=== PATIENT | male | born 1975 | race African-American/Black ===

== ENCOUNTER 2017-05-27 23:08 | Emergency (ER) | payer OTHER ==
--- NOTE | 2017-05-27 23:40 | PDOC ---
History of Present Illness - General History Source: Patient Exam Limitations: No Limitations - History of Present Illness Initial Comments: 05/27/17 23:52 The patient is a 41 year old male with history of hypertension, DM, and alcohol dependance, last detox was approximately 7 years ago, who presents to the ED requesting inpatient alcohol detox. The patient reports he had been in an outpatient detox program but failed treatment. He reports he drank a twelve pack of beer today. Last alcohol consumption was reportedly 3 hours prior to evaluation. The patient denies shaking, seizure activity, nausea, or vomiting. He denies fever or chills. He denies any physical complaint. He states his drinking has been getting worse over the past few weeks secondary to some issues at home. <Jolynn Walker - Last Filed: 05/27/17 23:52> <Adrienne Doshi - Last Filed: 05/28/17 00:27> - General Stated Complaint: DETOX Time Seen by Provider: 05/27/17 23:30 Past History <Jolynn Walker - Last Filed: 05/27/17 23:52> - Past Medical History HTN: Yes - Suicide/Smoking/Psychosocial Hx Smoking History: Former smoker Have you smoked in the past 12 months: No If you are a former smoker, when did you quit?: 5 Hx Alcohol Use: No (Previously) Drug/Substance Use Hx: No Substance Use Type: None Hx Substance Use Treatment: No <Adrienne Doshi - Last Filed: 05/28/17 00:27> - Past Medical History Allergies/Adverse Reactions: Allergies Allergy/AdvReac Type Severity Reaction Status Date / Time morphine Allergy Verified 10/15/13 01:06 KELLY Inhibitors AdvReac Verified 10/14/13 20:11 Home Medications: Ambulatory Orders Amlodipine Besylate [Norvasc -] 5 mg PO DAILY 10/15/13 Aspirin [ASA -] 81 mg PO DAILY 10/15/13 Atorvastatin Ca [Lipitor -] 40 mg PO HS 10/15/13 Losartan Potassium [Cozaar] 100 mg PO DAILY 10/15/13 Multivitamin [Multivitamins] 1 each PO DAILY 10/15/13 Omeprazole [Prilosec (RX)] 40 mg PO BID 10/15/13 Paroxetine HCl [Paxil -] 20 mg PO DAILY 10/15/13 Review of Systems - Review of Systems Able to Perform ROS?: Yes Comments:: 05/28/17 00:09 GENERAL/CONSTITUTIONAL: No fever or chills. No weakness. HEAD, EYES, EARS, NOSE AND THROAT: No change in vision. No ear pain or discharge. No sore throat. GASTROINTESTINAL: No nausea, vomiting, diarrhea or constipation. GENITOURINARY: No dysuria, frequency, or change in urination. CARDIOVASCULAR: No chest pain or shortness of breath. RESPIRATORY: No cough, wheezing, or hemoptysis. MUSCULOSKELETAL: No joint or muscle swelling or pain. No neck or back pain. SKIN: No rash NEUROLOGIC: No headache, vertigo, loss of consciousness, or change in strength/ sensation. ENDOCRINE: No increased thirst. No abnormal weight change. HEMATOLOGIC/LYMPHATIC: No anemia, easy bleeding, or history of blood clots. ALLERGIC/IMMUNOLOGIC: No hives or skin allergy. <Jolynn Walker - Last Filed: 05/27/17 23:52> *Physical Exam - Physical Exam Comments: 05/28/17 00:09 Constitutional: Awake, alert, oriented. No acute distress. Smells of EtOH Head: Normocephalic. Atraumatic Eyes: PERRL. EOMI. Conjunctivae are not pale. ENT: Mucous membranes are moist and intact. Posterior pharynx without exudates or erythema. Uvula midline. Neck: Supple. Full ROM. No lymphadenopathy. Cardiovascular: Regular rate. Regular rhythm. S1, S2 regular. Distal pulses are 2+ and symmetric. Pulmonary/Chest: No evidence of respiratory distress. Clear to auscultation bilaterally No wheezing, rales or rhonchi. Abdominal: Soft and non-distended. There is no tenderness. No rebound, guarding or rigidity. No organomegaly. No palpable masses. Good bowel sounds. Back: No CVA tenderness. Musculoskeletal: No edema. No cyanosis. No clubbing. Full range of motion in all extremities. Nocalf tenderness. Radial/pedal pulses are intact and 2+ bilaterally Skin: Skin is warm and dry. No petechiae. No purpura. Neurological: Alert and oriented to person, place, and time. Cranial nerves II -XII are grossly intact. Normal speech. Strength is grossly symmetric. No sensory deficits. Psychiatric: Good eye contact. Normal interaction, affect and behavior. <Jolynn Walker - Last Filed: 05/27/17 23:52> Medical Decision Making - Medical Decision Making 05/28/17 00:25 a/p: 41yo male requesting detox from etoh -failed outpt program for alcohol -drinking etoh 12 pack a day last drink 3 hours ago hx of detox in past -hx of DT in past, no hx of seizures or requiring hospitalization -call placed to detox, no beds available at this time, will check labs and give banana bag -will monitor for tremors and withdrawal symptoms smell of etoh on the breath <Adrienne Doshi - Last Filed: 05/28/17 00:27> *DC/Admit/Observation/Transfer - Attestations Scribe Attestion: 05/28/17 00:14 Documentation prepared by Jolynn Walker, acting as medical review coordinator for Adrienne Doshi DO. <Jolynn Walker - Last Filed: 05/27/17 23:52>
[2017-05-27] MEDS ORDERED: FOLIC ACID INJECTION - 1 MG, THIAMINE HCL 100 MG, MULTIVIT INJECTION ADULT 10 ML in SOD... IVPB ONE (23:52)
[2017-05-28 01:24] LABS: BASOPHIL 1.4 % (0-2.0); EOSINOPHIL 0.6 % (0-4.5); MCH 29.8 pg (25.7-33.7); MEAN CELL VOLUME 87.9 fl (80-96); MEAN PLT VOLUME 7.7 fl (7.5-11.1); NEUTROPHILS 63.4 % (42.8-82.8); PLATELET COUNT 286 K/MM3 (134-434); RDW 14.6 % (11.9-15.9); WHITE BLOOD COUNT 5.3 K/mm3 (4.0-10.0)
[2017-05-28 01:49] LABS: ALBUMIN 4.1 g/dl (3.4-5.0); ANION GAP 9 (8-16); BILIRUBIN,TOTAL 0.2 mg/dL (0.2-1.0); CALCIUM 8.8 mg/dL (8.5-10.1); CO2 29 mmol/L (21-32); CREATININE 0.8 mg/dL (0.7-1.3); GLUCOSE,RANDOM 129 mg/dL (74-106); MAGNESIUM 1.8 mg/dL (1.8-2.4); SGOT/AST 83 U/L (15-37); SGPT/ALT 63 U/L (12-78)
[2017-05-28 01:50] LABS: ALK PHOS 57 U/L (45-117); TOT PROT 7.8 g/dl (6.4-8.2)
[2017-05-28 02:43] VITALS: BMI 30.1
[2017-05-28 07:48] VITALS: BP 142/92; PULSE 99; TEMP 98.3
--- NOTE | 2017-05-28 07:58 | PDOC ---
*Physical Exam - Vital Signs Last Vital Signs Temp Pulse Resp BP Pulse Ox 98.3 F 99 H 18 142/92 99 05/28/17 07:05 05/28/17 07:05 05/28/17 07:05 05/28/17 07:05 05/28/17 07:05 ED Treatment Course - LABORATORY CBC & Chemistry Diagram: 05/28/17 01:10 05/28/17 01:10 - ADDITIONAL ORDERS Additional order review: Laboratory Results 05/28/17 05/28/17 01:10 01:10 Sodium 141 Potassium 3.8 Chloride 103 Carbon Dioxide 29 Anion Gap 9 BUN 8 D Creatinine 0.8 D Creat Clearance w eGFR > 60 Random Glucose 129 H Calcium 8.8 Magnesium 1.8 Total Bilirubin 0.2 D AST 83 H D ALT 63 D Alkaline Phosphatase 57 Total Protein 7.8 D Albumin 4.1 D Alcohol, Quantitative 298.4 H* 05/28/17 01:10 RBC 4.30 MCV 87.9 MCHC 34.0 RDW 14.6 MPV 7.7 D Neutrophils % 63.4 D Lymphocytes % 28.7 D Monocytes % 5.9 Eosinophils % 0.6 Basophils % 1.4 D - Medications Given in the ED: ED Medications Discontinued Medications Generic Name Dose Route Start Last Admin Trade Name Freq PRN Reason Stop Dose Admin Folic Acid 1 mg/ Thiamine HCl 1,000 mls @ 125 mls/hr 05/27/17 23:52 05/28/17 01:16 100 mg/ Multivitamins/Minerals IVPB 05/28/17 07:51 125 mls/hr 10 ml/ Sodium Chloride ONCE ONE Administration Lorazepam 1 mg 05/28/17 02:20 05/28/17 02:51 Ativan Injection - IVPUSH 05/28/17 02:21 1 mg ONCE ONE Administration Medical Decision Making - Medical Decision Making 05/28/17 07:57 Care taken over from Dr. Miramontes. 05/28/17 08:00 Patient ready for admission to [facility]. 05/28/17 08:06 Spoke with detox - told to send patient immediately. Will accept for further care. *DC/Admit/Observation/Transfer Diagnosis at time of Disposition: Alcohol abuse - Discharge Dispostion Disposition: TRANSFER ACUTE CARE/OTHER HOSP - Referrals Referrals: STAFF,NOT ON [Primary Care Provider] - - Patient Instructions Printed Discharge Instructions: DI for Alcohol Abuse Additional Instructions: Please return if any shaking, altered mental status, or other concerning symptoms. - Post Discharge Activity
== END 2017-05-28 08:19 | disposition short-term general hospital (02) ==
LOC: JER 23:08
DX: F10.10 Alcohol abuse, uncomplicated (principal); Y90.8 Blood alcohol level of 240 mg/100 ml or more; I10 Essential (primary) hypertension; E11.9 Type 2 diabetes mellitus without complications
CPT/HCPCS: 36415; 80053; 80307; 83735; 85025; 99283-25

== ENCOUNTER 2017-05-28 09:08 | Inpatient (IN) | payer OTHER ==
[2017-05-28 11:03] VITALS: BMI 31.0
--- NOTE | 2017-05-28 12:43 | HP ---
CIWA Score - CIWA Score Nausea/Vomitin Muscle Tremors: 5 Anxiety: 4-Mod. Anxious/Guarded Agitation: 4-Moderately Restless Paroxysmal Sweats: 3 Orientation: 0-Oriented Tacttile Disturbances: 0-None Auditory Disturbances: 0-None Visual Disturbances: 0-None Headache: 0-None Present CIWA-Ar Total Score: 19 Admission ROS BHS - HPI Chief Complaint: Withdrawal sx. Allergies/Adverse Reactions: Allergies Allergy/AdvReac Type Severity Reaction Status Date / Time morphine Allergy Verified 05/28/17 11:20 KELLY Inhibitors AdvReac Verified 05/28/17 11:20 History of Present Illness: 41 y/o man with a long hx. of alcoholism is admitted for detox. Pt. has been in previous detox denies significant sobriety. Exam Limitations: No Limitations - Ebola screening Have you traveled outside of the country in the last 21 days: No Have you had contact with anyone from an Ebola affected area: No Have you been sick,other than usual withdrawal symptoms: No Do you have a fever: No - Review of Systems Constitutional: Diaphoresis EENT: reports: No Symptoms Reported Respiratory: reports: No Symptoms reported Cardiac: reports: No Symptoms Reported GI: reports: Nausea, Abdominal cramping : reports: No Symptoms Reported Musculoskeletal: reports: No Symptoms Reported Integumentary: reports: Sweating Neuro: reports: Tremors Endocrine: reports: No Symptoms Reported Hematology: reports: No Symptoms Reported Psychiatric: reports: No Sypmtoms Reported Other Systems: Reviewed and Negative Patient History - Patient Medical History Hx Anemia: No Hx Asthma: No Hx Chronic Obstructive Pulmonary Disease (COPD): No Hx Cancer: No Hx Cardiac Disorders: No Hx Congestive Heart Failure: No Hx Hypertension: Yes (Pt is on meds) Hx Hypercholesterolemia: Yes Hx Pacemaker: No HX Cerebrovascular Accident: No Hx Seizures: No Hx Dementia: No Hx Diabetes: Yes (Type II) Hx Gastrointestinal Disorders: Yes (pancreatitis 2013) Hx Liver Disease: Yes (fatty liver) Hx Genitourinary Disorders: No Hx Sexually Transmitted Disorders: No Hx Renal Disease (ESRD): No Hx Thyroid Disease: No Hx Human Immunodeficiency Virus (HIV): No Hx Hepatitis C: No Hx Depression: Yes (Anxiety disorder) Hx Suicide Attempt: No Hx Bipolar Disorder: No Hx Schizophrenia: No - Patient Surgical History Past Surgical History: No Anesthesia Reaction: No - PPD History Previous Implant?: Yes Documented Results: Negative w/o proof Implanted On Prior [facility] Admission?: No PPD to be Administered?: Yes - Smoking Cessation Smoking history: Former smoker Have you smoked in the past 12 months: No If you are a former smoker, when did you quit?: 2008 Hx Chewing Tobacco Use: No Initiated information on smoking cessation: No - Substance & Tx. History Hx Alcohol Use: Yes Hx Substance Use: No Substance Use Type: Alcohol Hx Substance Use Treatment: Yes ([facility] 2012) - Substances Abused Alcohol Route: Oral Frequency: Daily Amount used: 12 pk beers Age of first use: 18 Date of Last Use: 05/28/17 Family Disease History - Family Disease History Family Disease History: Heart Disease: Mother (HTN, Throat), CA: Mother Admission Physical Exam [facility] - Vital Signs Vital Signs: Vital Signs - 24 hr 05/28/17 11:01 Temperature 98.2 F Pulse Rate 119 H Respiratory 20 Rate Blood Pressure 154/97 - Physical General Appearance: Yes: Tremorous, Irritable, Sweating, Anxious HEENTM: Yes: Within Normal Limits Respiratory: Yes: Chest Non-Tender, Lungs Clear, Normal Breath Sounds Neck: Yes: Supple Breast: Yes: Breast Exam Deferred Cardiology: Yes: Regular Rhythm, Regular Rate, S1, S2 Abdominal: Yes: Normal Bowel Sounds, Non Tender, Soft Genitourinary: Yes: Within Normal Limits Back: Yes: Within Normal Limits Musculoskeletal: Yes: Within Normal Limits Extremities: Yes: Tremors Neurological: Yes: Fully Oriented, Alert Integumentary: Yes: Diaphoresis Lymphatic: Yes: Within Normal Limits - Diagnostic (1) Alcohol dependence with uncomplicated withdrawal Current Visit: Yes Status: Acute (2) Hypertension Current Visit: No Status: Acute (3) Hypercholesterolemia Current Visit: Yes Status: Acute (4) Type II diabetes mellitus Current Visit: Yes Status: Acute Qualifiers: Diabetes mellitus complication status: without complication Diabetes mellitus longterm insulin use: without longterm use Qualified Code(s): E11.9 - Type 2 diabetes mellitus without complications (5) GERD (gastroesophageal reflux disease) Current Visit: No Status: Acute Qualifiers: Esophagitis presence: without esophagitis Qualified Code(s): K21.9 - Gastro -esophageal reflux disease without esophagitis Cleared for Admission [facility] - Detox or Rehab [facility] Level of Care: Medically Managed Detox Regimen/Protocol: Librium BHS Breath Alcohol Content Breath Alcohol Content: 0.095 Urine Drug Screen - Results Drug Screen Negative: No Urine Drug Screen Results: BZO-Benzodiazepines, TCA-Tricyclic Antidepress
[2017-05-28] MEDS ORDERED: IBUPROFEN 400 MG TABLET (FP) PO PRN (12:51)
[2017-05-28] MEDS ORDERED: LOPERAMIDE HCL 2 MG CAPSULE PO PRN (12:51)
[2017-05-28] MEDS ORDERED: MENTHOL/PHENOL 1 EACH UD MM PRN (12:51)
[2017-05-28] MEDS ORDERED: chlordiazePOXIDE HCL 25 MG CAPSULE PO PRN (12:51)
[2017-05-28] MEDS ORDERED: MAGNESIUM CITRATE 300 ML BOTTLE PO PRN (12:51)
[2017-05-28] MEDS ORDERED: guaiFENesin/D-METHORPHAN HB 10 ML UNIT-DOSE CUPS PO PRN (12:51)
[2017-05-28] MEDS ORDERED: ACETAMINOPHEN 325 MG TABLET (FP) PO PRN (12:51)
[2017-05-28] MEDS ORDERED: MAG HYDROX/AL HYDROX/SIMETH 30 ML UNIT-DOSE CUP PO PRN (12:51)
[2017-05-28] MEDS ORDERED: MAGNESIUM HYDROX 2400MG/30ML ORAL SUSPENSION 30 ML CUP PO PRN (12:51)
[2017-05-28] MEDS ORDERED: P-EPHED 60MG/TRIPROLIDI 2.5MG TABLET PO PRN (12:51)
[2017-05-28] MEDS ORDERED: chlordiazePOXIDE HCL 25 MG CAPSULE PO ONE (13:51)
[2017-05-28] MEDS ORDERED: amLODIPine BESYLATE 5 MG TABLET (FP) PO SCH (13:51)
[2017-05-28] MEDS: ASPIRIN 81 MG CHEWABLE TABLETS PO SCH (14:27)
[2017-05-28] MEDS: PANTOPRAZOLE 40 MG TABLET (FP) PO SCH (14:27)
[2017-05-28] MEDS: LOSARTAN POTASSIUM 50 MG TABLET (FP) PO SCH (14:27)
[2017-05-28] MEDS: chlordiazePOXIDE HCL 25 MG CAPSULE PO SCH ×2 (17:32→22:18)
[2017-05-28 18:19] LABS: URINE APPEARANCE CLEAR; URINE BILIRUBIN NEGATIVE (NEGATIVE); URINE BLOOD NEGATIVE (NEGATIVE); URINE COLOR YELLOW; URINE GLUCOSE (UA) 2+ (NEGATIVE); URINE KETONE NEGATIVE (NEGATIVE); URINE LEUK ESTERASE NEGATIVE (NEGATIVE); URINE NITRITE NEGATIVE (NEGATIVE); URINE UROBILINOGEN NEGATIVE mg/dL (0.2-1.0)
[2017-05-28 18:54] LABS: URINE PROTEIN 3+ (NEGATIVE)
[2017-05-28 18:59] LABS: EPI CELLS RARE /HPF (FEW); URINE MUCUS RARE
[2017-05-28] MEDS ORDERED: cloNIDine HCL 0.1 MG TABLET PO ONE (19:11)
[2017-05-28] MEDS ORDERED: amLODIPine BESYLATE 2.5 MG TABLET (FP) PO ONE (19:14)
[2017-05-28] MEDS: THIAMINE HCL 100 MG TABLET (FP) PO SCH (22:17)
[2017-05-28] MEDS: ATORVASTATIN CA 40 MG TABLET (FP) PO SCH (22:17)
[2017-05-29] MEDS ORDERED: cloNIDine HCL 0.1 MG TABLET PO ONE (00:02)
[2017-05-29] MEDS: chlordiazePOXIDE HCL 25 MG CAPSULE PO SCH ×4 (05:45→23:13)
[2017-05-29] MEDS: metFORMIN HCL 500 MG TABLET (FP) PO SCH (07:22)
[2017-05-29 09:48] LABS: HEMATOCRIT 34.6 % (35.4-49); HEMOGLOBIN 11.5 GM/dL (11.7-16.9); MCH 29.4 pg (25.7-33.7); MCHC 33.2 g/dl (32.0-35.9); MEAN CELL VOLUME 88.6 fl (80-96); MEAN PLT VOLUME 8.5 fl (7.5-11.1); PLATELET COUNT 237 K/MM3 (134-434); RBC 3.91 M/mm3 (4.00-5.60); RDW 14.6 % (11.9-15.9); WHITE BLOOD COUNT 3.6 K/mm3 (4.0-10.0)
[2017-05-29 09:52] LABS: ALBUMIN 3.5 g/dl (3.4-5.0); CHLORIDE 105 mmol/L (98-107); POTASSIUM 3.6 mmol/L (3.5-5.1); SODIUM 142 mmol/L (136-145)
[2017-05-29 09:59] LABS: ALK PHOS 68 U/L (45-117); ANION GAP 8 (8-16); BILIRUBIN,TOTAL 0.7 mg/dL (0.2-1.0); BLOOD UREA NITROGEN 9 mg/dL (7-18); CO2 29 mmol/L (21-32); CREATININE 0.8 mg/dL (0.7-1.3); GLUCOSE,RANDOM 229 mg/dL (74-106); SGOT/AST 83 U/L (15-37); SGPT/ALT 62 U/L (12-78); TOT PROT 7.1 g/dl (6.4-8.2)
[2017-05-29] MEDS: PRENATAL VITAMINS W/ FOLIC ACID TABLET (FP) PO SCH (10:14)
[2017-05-29] MEDS: PANTOPRAZOLE 40 MG TABLET (FP) PO SCH (10:16)
[2017-05-29] MEDS: amLODIPine BESYLATE 10 MG TABLET (FP) PO SCH (10:16)
[2017-05-29] MEDS: ASPIRIN 81 MG CHEWABLE TABLETS PO SCH (10:16)
[2017-05-29] MEDS: LOSARTAN POTASSIUM 50 MG TABLET (FP) PO SCH (10:16)
[2017-05-29] MEDS ORDERED: FLU VACCINE QUAD 60 MCG/0.5 ML (MDV 17-18) IM ONE (12:00)
--- NOTE | 2017-05-29 12:47 | CONSULT ---
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 Started drinking beer at age 18, consumes 12pk daily. Last drank on 05/28/17 Medical History: Significant for hypertension. hyperlipidemia, type 2 diabetes mellitus and history of pancreatitis in 2009 Psychiatric History: Denies history of previous psychiatric treatment but reports that for the past 7 years, he has been prescribed Paxil 20 mg po daily for job -related anxiety by his primary care physician. At present reports feelimg and sleeping well Physical/Sexual Abuse/Trauma History: Denies history of verbal, physical or sexual abuse as well as DV relationship Mental Status Exam - Mental Status Exam Alert and Oriented to: Time, Place, Person Cognitive Function: Fair Patient Appearance: Well Groomed Mood: Hopeful, Euthymic Affect: Appropriate Patient Behavior: Cooperative Speech Pattern: Clear Voice Loudness: Normal Thought Process: Intact, Goal Oriented Thought Disorder: Not Present Hallucinations: Denies Suicidal Ideation: Denies Homicidal Ideation: Denies Insight/Judgement: Poor Sleep: Well Appetite: Good Muscle strength/Tone: Normal Gait/Station: Normal Psychiatric Findings - Problem List ([place] 1, 2,3) (1) Anxiety disorder Current Visit: Yes Status: Chronic (2) Alcohol dependence with uncomplicated withdrawal Current Visit: Yes Status: Acute (3) Hypercholesterolemia Current Visit: Yes Status: Chronic (4) Hypertension Current Visit: Yes Status: Acute Qualifiers: Hypertension type: essential hypertension Qualified Code(s): I10 - Essential (primary) hypertension (5) Type II diabetes mellitus Current Visit: Yes Status: Chronic Qualifiers: Diabetes mellitus complication status: without complication Diabetes mellitus chcf insulin use: without chcf use Qualified Code(s): E11.9 - Type 2 diabetes mellitus without complications (6) DVT prophylaxis Current Visit: No Status: Chronic (7) GERD (gastroesophageal reflux disease) Current Visit: No Status: Acute Qualifiers: Esophagitis presence: without esophagitis Qualified Code(s): K21.9 - Gastro -esophageal reflux disease without esophagitis - Initial Treatment Plan Initial Treatment Plan: 1) Continue Paxil 20 mg po daily. 2) Continue inpatient detoxification
--- NOTE | 2017-05-29 13:25 | PN ---
[facility] CIWA - CIWA Score Nausea/Vomitin-No Nausea/No Vomiting Muscle Tremors: 4-Moderate,w/Arms Extend Anxiety: 4-Mod. Anxious/Guarded Agitation: 3 Paroxysmal Sweats: 3 Orientation: 0-Oriented Tacttile Disturbances: 0-None Auditory Disturbances: 0-None Visual Disturbances: 0-None Headache: 0-None Present CIWA-Ar Total Score: 14 S Progress Note (SOAP) Subjective: Anxiety,tremors,sweating,interrupted sleep Objective: 05/29/17 13:23 Vital Signs - 8 hr 05/29/17 05/29/17 06:50 10:00 Temperature 97.7 F 97.5 F L Pulse Rate 91 H 106 H Respiratory 20 20 Rate Blood Pressure 149/91 138/100 Laboratory Last Values WBC 3.6 K/mm3 (4.0-10.0) L D 05/29/17 07:50 RBC 3.91 M/mm3 (4.00-5.60) L 05/29/17 07:50 Hgb 11.5 GM/dL (11.7-16.9) L D 05/29/17 07:50 Hct 34.6 % (35.4-49) L 05/29/17 07:50 MCV 88.6 fl (80-96) 05/29/17 07:50 MCH 29.4 pg (25.7-33.7) 05/29/17 07:50 MCHC 33.2 g/dl (32.0-35.9) 05/29/17 07:50 RDW 14.6 % (11.9-15.9) 05/29/17 07:50 Plt Count 237 K/MM3 (134-434) 05/29/17 07:50 MPV 8.5 fl (7.5-11.1) D 05/29/17 07:50 Sodium 142 mmol/L (136-145) 05/29/17 07:50 Potassium 3.6 mmol/L (3.5-5.1) 05/29/17 07:50 Chloride 105 mmol/L (98-107) 05/29/17 07:50 Carbon Dioxide 29 mmol/L (21-32) 05/29/17 07:50 Anion Gap 8 (8-16) 05/29/17 07:50 BUN 9 mg/dL (7-18) 05/29/17 07:50 Creatinine 0.8 mg/dL (0.7-1.3) 05/29/17 07:50 Creat Clearance w eGFR > 60 (>60) 05/29/17 07:50 POC Glucometer 188 UNITS (80-120) 05/28/17 11:29 Random Glucose 229 mg/dL (74-106) H D 05/29/17 07:50 Calcium 8.0 mg/dL (8.5-10.1) L 05/29/17 07:50 Total Bilirubin 0.7 mg/dL (0.2-1.0) D 05/29/17 07:50 AST 83 U/L (15-37) H 05/29/17 07:50 ALT 62 U/L (12-78) 05/29/17 07:50 Alkaline Phosphatase 68 U/L (45-117) 05/29/17 07:50 Total Protein 7.1 g/dl (6.4-8.2) 05/29/17 07:50 Albumin 3.5 g/dl (3.4-5.0) 05/29/17 07:50 Urine Color Yellow 05/28/17 15:48 Urine Appearance Clear 05/28/17 15:48 Urine pH 6.0 (5.0-8.0) 05/28/17 15:48 Ur Specific [place] 1.017 (1.001-1.035) 05/28/17 15:48 Urine Protein 3+ (NEGATIVE) H 05/28/17 15:48 Urine Glucose (UA) 2+ (NEGATIVE) H 05/28/17 15:48 Urine Ketones Negative (NEGATIVE) 05/28/17 15:48 Urine Blood Negative (NEGATIVE) 05/28/17 15:48 Urine Nitrite Negative (NEGATIVE) 05/28/17 15:48 Urine Bilirubin Negative (NEGATIVE) 05/28/17 15:48 Urine Urobilinogen Negative mg/dL (0.2-1.0) 05/28/17 15:48 Ur Leukocyte Esterase Negative (NEGATIVE) 05/28/17 15:48 Urine WBC (Auto) <1 /hpf (3-5) 05/28/17 15:48 Urine RBC (Auto) 1 /hpf (0-3) 05/28/17 15:48 Ur Epithelial Cells Rare /HPF (FEW) 05/28/17 15:48 Urine Mucus Rare 05/28/17 15:48 RPR Titer Nonreactive (NONREACTIVE) 05/29/17 07:50 labs noted Assessment: 05/29/17 13:24 Withdrawal sx. Plan: Continue detox
[2017-05-29] MEDS: PARoxetine HCL 20 MG TABLET (FP) PO SCH (14:50)
[2017-05-29] MEDS: THIAMINE HCL 100 MG TABLET (FP) PO SCH (23:12)
[2017-05-29] MEDS: ATORVASTATIN CA 40 MG TABLET (FP) PO SCH (23:12)
[2017-05-29] MEDS: hydrOXYzine PAMOATE 50 MG CAPSULE (FP) PO PRN (23:14)
[2017-05-30] MEDS: metFORMIN HCL 500 MG TABLET (FP) PO SCH (06:01)
[2017-05-30] MEDS: chlordiazePOXIDE HCL 25 MG CAPSULE PO SCH ×2 (06:02→10:49)
--- NOTE | 2017-05-30 08:36 | EKG ---
Test Reason : Blood Pressure : / mmHG Vent. Rate : 119 BPM Atrial Rate : 119 BPM P-R Int : 162 ms QRS Dur : 090 ms QT Int : 334 ms P-R-T Axes : 060 016 134 degrees QTc Int : 469 ms SINUS TACHYCARDIA POSSIBLE LEFT ATRIAL ENLARGEMENT NONSPECIFIC T WAVE ABNORMALITY ABNORMAL ECG NO PREVIOUS ECGS AVAILABLE Confirmed by BRIEN CALHOUN, FELICIA ([id number]) on 05/30/2017 8:35:38 AM Referred By: STAN MENDOZA Confirmed By:FELICIA TESFAYE MD
[2017-05-30] MEDS: ASPIRIN 81 MG CHEWABLE TABLETS PO SCH (10:48)
[2017-05-30] MEDS: PANTOPRAZOLE 40 MG TABLET (FP) PO SCH (10:49)
[2017-05-30] MEDS: PRENATAL VITAMINS W/ FOLIC ACID TABLET (FP) PO SCH (10:49)
[2017-05-30] MEDS: LOSARTAN POTASSIUM 50 MG TABLET (FP) PO SCH (10:49)
[2017-05-30] MEDS: PARoxetine HCL 20 MG TABLET (FP) PO SCH (10:49)
[2017-05-30] MEDS: amLODIPine BESYLATE 10 MG TABLET (FP) PO SCH (10:49)
--- NOTE | 2017-05-30 13:13 | PN ---
[facility] CIWA - CIWA Score Nausea/Vomitin-No Nausea/No Vomiting Muscle Tremors: 3 Anxiety: 3 Agitation: 2 Paroxysmal Sweats: 1-Minimal Palms Moist Orientation: 0-Oriented Tacttile Disturbances: 0-None Auditory Disturbances: 0-None Visual Disturbances: 0-None Headache: 0-None Present CIWA-Ar Total Score: 9 BHS Progress Note (SOAP) Subjective: tremor sweat restlessness anxiety Objective: 05/30/17 13:14 Vital Signs Temperature 97.7 F 05/30/17 10:30 Pulse Rate 115 H 05/30/17 10:30 Respiratory Rate 20 05/30/17 10:30 Blood Pressure 146/98 05/30/17 10:30 O2 Sat by Pulse Oximetry (%) Laboratory Last Values WBC 3.6 K/mm3 (4.0-10.0) L D 05/29/17 07:50 RBC 3.91 M/mm3 (4.00-5.60) L 05/29/17 07:50 Hgb 11.5 GM/dL (11.7-16.9) L D 05/29/17 07:50 Hct 34.6 % (35.4-49) L 05/29/17 07:50 MCV 88.6 fl (80-96) 05/29/17 07:50 MCH 29.4 pg (25.7-33.7) 05/29/17 07:50 MCHC 33.2 g/dl (32.0-35.9) 05/29/17 07:50 RDW 14.6 % (11.9-15.9) 05/29/17 07:50 Plt Count 237 K/MM3 (134-434) 05/29/17 07:50 MPV 8.5 fl (7.5-11.1) D 05/29/17 07:50 Sodium 142 mmol/L (136-145) 05/29/17 07:50 Potassium 3.6 mmol/L (3.5-5.1) 05/29/17 07:50 Chloride 105 mmol/L (98-107) 05/29/17 07:50 Carbon Dioxide 29 mmol/L (21-32) 05/29/17 07:50 Anion Gap 8 (8-16) 05/29/17 07:50 BUN 9 mg/dL (7-18) 05/29/17 07:50 Creatinine 0.8 mg/dL (0.7-1.3) 05/29/17 07:50 Creat Clearance w eGFR > 60 (>60) 05/29/17 07:50 POC Glucometer 188 UNITS (80-120) 05/28/17 11:29 Random Glucose 229 mg/dL (74-106) H D 05/29/17 07:50 Calcium 8.0 mg/dL (8.5-10.1) L 05/29/17 07:50 Total Bilirubin 0.7 mg/dL (0.2-1.0) D 05/29/17 07:50 AST 83 U/L (15-37) H 05/29/17 07:50 ALT 62 U/L (12-78) 05/29/17 07:50 Alkaline Phosphatase 68 U/L (45-117) 05/29/17 07:50 Total Protein 7.1 g/dl (6.4-8.2) 05/29/17 07:50 Albumin 3.5 g/dl (3.4-5.0) 05/29/17 07:50 Urine Color Yellow 05/28/17 15:48 Urine Appearance Clear 05/28/17 15:48 Urine pH 6.0 (5.0-8.0) 05/28/17 15:48 Ur Specific [place] 1.017 (1.001-1.035) 05/28/17 15:48 Urine Protein 3+ (NEGATIVE) H 05/28/17 15:48 Urine Glucose (UA) 2+ (NEGATIVE) H 05/28/17 15:48 Urine Ketones Negative (NEGATIVE) 05/28/17 15:48 Urine Blood Negative (NEGATIVE) 05/28/17 15:48 Urine Nitrite Negative (NEGATIVE) 05/28/17 15:48 Urine Bilirubin Negative (NEGATIVE) 05/28/17 15:48 Urine Urobilinogen Negative mg/dL (0.2-1.0) 05/28/17 15:48 Ur Leukocyte Esterase Negative (NEGATIVE) 05/28/17 15:48 Urine WBC (Auto) <1 /hpf (3-5) 05/28/17 15:48 Urine RBC (Auto) 1 /hpf (0-3) 05/28/17 15:48 Ur Epithelial Cells Rare /HPF (FEW) 05/28/17 15:48 Urine Mucus Rare 05/28/17 15:48 RPR Titer Nonreactive (NONREACTIVE) 05/29/17 07:50 lab noted Assessment: 05/30/17 13:14 withdrawal sx Plan: continue detox
[2017-05-30] MEDS: chlordiazePOXIDE 5 MG CAPSULE PO SCH ×2 (17:00→22:45)
[2017-05-30] MEDS: ATORVASTATIN CA 40 MG TABLET (FP) PO SCH (22:45)
[2017-05-30] MEDS: THIAMINE HCL 100 MG TABLET (FP) PO SCH (22:45)
[2017-05-30] MEDS: hydrOXYzine PAMOATE 50 MG CAPSULE (FP) PO PRN (22:47)
[2017-05-31] MEDS: chlordiazePOXIDE 5 MG CAPSULE PO SCH ×2 (05:40→10:52)
[2017-05-31] MEDS: metFORMIN HCL 500 MG TABLET (FP) PO SCH (08:00)
[2017-05-31] MEDS: LOSARTAN POTASSIUM 50 MG TABLET (FP) PO SCH (10:52)
[2017-05-31] MEDS: ASPIRIN 81 MG CHEWABLE TABLETS PO SCH (10:52)
[2017-05-31] MEDS: PARoxetine HCL 20 MG TABLET (FP) PO SCH (10:53)
[2017-05-31] MEDS: PRENATAL VITAMINS W/ FOLIC ACID TABLET (FP) PO SCH (10:53)
[2017-05-31] MEDS: PANTOPRAZOLE 40 MG TABLET (FP) PO SCH (10:53)
[2017-05-31] MEDS: amLODIPine BESYLATE 10 MG TABLET (FP) PO SCH (10:53)
--- NOTE | 2017-05-31 11:47 | PN ---
BHS Progress Note (SOAP) Subjective: I am feeling so much better anxiety Objective: 05/31/17 11:46 Vital Signs Temperature 97.7 F 05/31/17 06:16 Pulse Rate 98 H 05/31/17 06:16 Respiratory Rate 20 05/31/17 06:16 Blood Pressure 132/91 05/31/17 06:16 O2 Sat by Pulse Oximetry (%) aaox3 ambulating no acute distress Assessment: 05/31/17 11:46 withdrawal sx Plan: continue detox increase fluids d/c in am
[2017-05-31] MEDS: chlordiazePOXIDE HCL 10 MG CAPSULE PO SCH ×2 (17:24→22:15)
[2017-05-31] MEDS: THIAMINE HCL 100 MG TABLET (FP) PO SCH (22:15)
[2017-05-31] MEDS: ATORVASTATIN CA 40 MG TABLET (FP) PO SCH (22:15)
[2017-06-01] MEDS: metFORMIN HCL 500 MG TABLET (FP) PO SCH (06:13)
[2017-06-01] MEDS: chlordiazePOXIDE HCL 10 MG CAPSULE PO SCH (06:13)
[2017-06-01 06:49] VITALS: BP 136/96; PULSE 92; TEMP 96.6
--- NOTE | 2017-06-01 08:38 | DS ---
[facility] Detox Discharge Summary Admission Date: 05/28/17 Discharge Date: 06/01/17 - History Present History: Alcohol Dependence - Physical Exam Results Vital Signs: Vital Signs Temperature 96.6 F L 06/01/17 06:00 Pulse Rate 92 H 06/01/17 06:00 Respiratory Rate 20 06/01/17 06:00 Blood Pressure 136/96 06/01/17 06:00 O2 Sat by Pulse Oximetry (%) - Treatment Hospital Course: Detox Protocol Followed, Detoxed Safely, Responded well, Discharged Condition Good, Rehab Referral Accepted - Medication Discharge Medications: Ambulatory Orders Amlodipine Besylate [Norvasc -] 5 mg PO DAILY 10/15/13 Aspirin [ASA -] 81 mg PO DAILY 10/15/13 Atorvastatin Ca [Lipitor -] 40 mg PO HS 10/15/13 Losartan Potassium [Cozaar] 100 mg PO DAILY 10/15/13 Multivitamin [Multivitamins] 1 each PO DAILY 10/15/13 Omeprazole [Prilosec (RX)] 40 mg PO BID 10/15/13 Metformin HCl [Glucophage -] 500 mg PO DAILY 05/28/17 Paroxetine HCl [Paxil -] 20 mg PO DAILY #30 tablet 05/29/17 - Diagnosis (1) Alcohol dependence with uncomplicated withdrawal Current Visit: Yes Status: Chronic (2) Hypertension Current Visit: Yes Status: Chronic Qualifiers: Hypertension type: essential hypertension Qualified Code(s): I10 - Essential (primary) hypertension (3) Anxiety disorder Current Visit: Yes Status: Chronic (4) Hypercholesterolemia Current Visit: Yes Status: Chronic (5) Type II diabetes mellitus Current Visit: Yes Status: Chronic Qualifiers: Diabetes mellitus complication status: without complication Diabetes mellitus skilled nursing insulin use: without skilled nursing use Qualified Code(s): E11.9 - Type 2 diabetes mellitus without complications (6) Anxiety Current Visit: No Status: Acute (7) GERD (gastroesophageal reflux disease) Current Visit: No Status: Acute Qualifiers: Esophagitis presence: without esophagitis Qualified Code(s): K21.9 - Gastro -esophageal reflux disease without esophagitis (8) DVT prophylaxis Current Visit: No Status: Chronic - AMA Did Patient Leave Against Medical Advice: No
[2017-06-01] MEDS: LOSARTAN POTASSIUM 50 MG TABLET (FP) PO SCH (09:22)
[2017-06-01] MEDS: PRENATAL VITAMINS W/ FOLIC ACID TABLET (FP) PO SCH (09:22)
[2017-06-01] MEDS: amLODIPine BESYLATE 10 MG TABLET (FP) PO SCH (09:22)
[2017-06-01] MEDS: PANTOPRAZOLE 40 MG TABLET (FP) PO SCH (09:22)
[2017-06-01] MEDS: ASPIRIN 81 MG CHEWABLE TABLETS PO SCH (09:22)
[2017-06-01] MEDS: PARoxetine HCL 20 MG TABLET (FP) PO SCH (09:23)
== END 2017-06-01 09:30 | disposition home or self-care (01) | DRG 897 ==
LOC: YASAS 09:08 → Y6N 12:14
PROVIDERS: ADMIT Internal Medicine; ATTEND Internal Medicine
PROC: HZ2ZZZZ Detoxification Services for Substance Abuse Treatment (ICD-10-PCS; principal; 2017-05-28)
DX: F10.230 Alcohol dependence with withdrawal, uncomplicated (principal); F41.9 Anxiety disorder, unspecified; I10 Essential (primary) hypertension; E78.00 Pure hypercholesterolemia, unspecified; K21.9 Gastro-esophageal reflux disease without esophagitis
CPT/HCPCS: 36415; 80053; 81003; 81015; 85027; 86593; 90688; 93005; 93010; G0008

== ENCOUNTER 2018-08-22 16:25 | Inpatient (IN) | payer OTHER ==
[2018-08-22 17:47] VITALS: BMI 29.5
--- NOTE | 2018-08-22 21:24 | HP ---
CIWA Score Nausea/Vomitin Muscle Tremors: 3 Anxiety: 3 Agitation: 0-Normal Activity Paroxysmal Sweats: 1-Minimal Palms Moist Orientation: 0-Oriented Tacttile Disturbances: 0-None Auditory Disturbances: 0-None Visual Disturbances: 0-None Headache: 3-Moderate CIWA-Ar Total Score: 13 - Admission Criteria OASAS Guidelines: Admission for Medically Managed Detox: Requires at least one of the followin. CIWA greater than 12 2. Seizures within the past 24 hours 3. Delirium tremens within the past 24 hours 4. Hallucinations within the past 24 hours 5. Acute intervention needed for co occurring medical disorder 6. Acute intervention needed for co occurring psychiatric disorder 7. Severe withdrawal that cannot be handled at a lower level of care (continued vomiting, continued diarrhea, abnormal vital signs) requiring intravenous medication and/or fluids 8. Patient presents the following: CIWA greater than 12, Seizures, delirium tremens or hallucinations in the past 12 hours Admission Criteria Met: Admission criteria met Admission ROS S - [facility] Chief Complaint: " I feel like I am shaking" Allergies/Adverse Reactions: Allergies Allergy/AdvReac Type Severity Reaction Status Date / Time morphine Allergy Verified 08/22/18 19:50 KELLY Inhibitors AdvReac Verified 08/22/18 19:50 History of Present Illness: 43 yo male with hx of nicotine and alcohol dependence is here seeking detox, reports multiple relapse, last Detox [facility] about one week ago, reports relapsed 24 hours after discharge. PMHX: GERD, HTN, DM II, HDL, PSTD, Depression , Generalized anxiety disorder. Hx of Acute Pancreatitis with last episode Summer 2017. Reports hx of ETOH blackouts. reports hx of DTS 2007 while attempting to self detox. Denies hx of seizures. Longest period of sobriety four years during 2006 -2010. Exam Limitations: No Limitations - Ebola screening Have you traveled outside of the country in the last 21 days: No Have you had contact with anyone from an Ebola affected area: No Have you been sick,other than usual withdrawal symptoms: No Do you have a fever: No - Review of Systems Constitutional: Chills, Changes in sleep, Other (" shakes") EENT: reports: No Symptoms Reported Respiratory: reports: Cough (x 2 days) Cardiac: reports: Palpitations GI: reports: Diarrhea, Nausea, Vomiting : reports: No Symptoms Reported Musculoskeletal: reports: Back Pain Integumentary: reports: No Symptoms Reported Neuro: reports: Headache Endocrine: reports: Increased Thirst Hematology: reports: No Symptoms Reported Psychiatric: reports: Orientated x3, Anxious Other Systems: Reviewed and Negative Patient History - Patient Medical History Hx Anemia: No Hx Asthma: No Hx Chronic Obstructive Pulmonary Disease (COPD): No Hx Cancer: No Hx Cardiac Disorders: No Hx Congestive Heart Failure: No Hx Hypertension: Yes (Pt is on meds) Hx Hypercholesterolemia: Yes Hx Pacemaker: No HX Cerebrovascular Accident: No Hx Seizures: No Hx Dementia: No Hx Diabetes: Yes (Type II) Hx Gastrointestinal Disorders: Yes (pancreatitis 2013) Hx Liver Disease: Yes (fatty liver) Hx Genitourinary Disorders: No Hx Sexually Transmitted Disorders: No Hx Renal Disease (ESRD): No Hx Thyroid Disease: No Hx Human Immunodeficiency Virus (HIV): No Hx Hepatitis C: No Hx Depression: Yes Hx Suicide Attempt: No Hx Bipolar Disorder: No Hx Schizophrenia: No - Patient Surgical History Past Surgical History: No Hx Neurologic Surgery: No Hx Cataract Extraction: No Hx Cardiac Surgery: No Hx Lung Surgery: No Hx Breast Surgery: No Hx Breast Biopsy: No Hx Abdominal Surgery: No Hx Appendectomy: No Hx Cholecystectomy: No Hx Genitourinary Surgery: No Hx Section: No Hx Orthopedic Surgery: No Anesthesia Reaction: No - PPD History Previous Implant?: Yes Documented Results: Negative w/proof Date: 05/30/17 PPD to be Administered?: Yes - Smoking Cessation Smoking history: Current every day smoker Have you smoked in the past 12 months: Yes Aproximately how many cigarettes per day: 10 If you are a former smoker, when did you quit?: 2008 Hx Chewing Tobacco Use: No Initiated information on smoking cessation: Yes 'Breaking Loose' booklet given: 08/22/18 - Substance & Tx. History Hx Alcohol Use: Yes Hx Substance Use: Yes Substance Use Type: Alcohol Hx Substance Use Treatment: Yes (, last Detox [facility] about one week ago,) - Substances Abused Alcohol Route: Oral Frequency: Daily Amount used: Liquor- 1 pint, beer- 1 six pack Age of first use: 15 Date of Last Use: 08/22/18 Family Disease History - Family Disease History Family Disease History: Heart Disease: Mother (HTN, Throat), CA: Mother Admission Physical Exam [facility] - Vital Signs Vital Signs: Vital Signs - 24 hr 08/22/18 17:45 Temperature 98.8 F Pulse Rate 120 H Respiratory 18 Rate Blood Pressure 130/92 - Physical General Appearance: Yes: Appropriately Dressed, Mild Distress, Alcohol on Breath , Tremorous Respiratory: Yes: Chest Non-Tender, Lungs Clear, Normal Breath Sounds, No Respiratory Distress, No Accessory Muscle Use Neck: Yes: Within Normal Limits Breast: Yes: Breast Exam Deferred Cardiology: Yes: Regular Rhythm, Tachycardia Abdominal: Yes: Normal Bowel Sounds, Protuberent, Tenderness (right upper quadrant) Genitourinary: Yes: Within Normal Limits Back: Yes: Normal Inspection Musculoskeletal: Yes: full range of Motion, Gait Steady, Pelvis Stable Extremities: Yes: Normal Capillary Refill, Normal Inspection, Normal Range of Motion, Non-Tender 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 NML intact, Fully Oriented, Alert, Motor Strength 5/5, Depressed Affect Integumentary: Yes: Normal Color, Warm, Moist Lymphatic: Yes: Within Normal Limits - Diagnostic (1) Nicotine dependence Current Visit: Yes Status: Chronic Qualifiers: Nicotine product type: cigarettes (2) GERD (gastroesophageal reflux disease) Current Visit: Yes Status: Acute Qualifiers: Esophagitis presence: without esophagitis Qualified Code(s): K21.9 - Gastro -esophageal reflux disease without esophagitis (3) Alcohol dependence with uncomplicated withdrawal Current Visit: Yes Status: Chronic (4) Hypertension Current Visit: Yes Status: Chronic Qualifiers: Hypertension type: essential hypertension Qualified Code(s): I10 - Essential (primary) hypertension (5) Type II diabetes mellitus Current Visit: Yes Status: Chronic Qualifiers: Diabetes mellitus group home insulin use: without group home use Diabetes mellitus complication status: without complication Qualified Code(s): E11.9 - Type 2 diabetes mellitus without complications (6) Nausea & vomiting Current Visit: Yes Status: Acute Qualifiers: Vomiting type: unspecified Vomiting Intractability: unspecified Qualified Code(s): R11.2 - Nausea with vomiting, unspecified Cleared for Admission [facility] - Detox or Rehab [facility] Level of Care: Medically Managed Detox Regimen/Protocol: Librium [facility] Breath Alcohol Content Breath Alcohol Content: 0.180 Urine Drug Screen - Results Drug Screen Negative: No Urine Drug Screen Results: BZO-Benzodiazepines Inpatient Rehab Admission - Rehab Decision to Admit Inpatient rehab admission?: No
[2018-08-22] MEDS ORDERED: LOPERAMIDE HCL 2 MG CAPSULE PO PRN (21:36)
[2018-08-22] MEDS ORDERED: MENTHOL/PHENOL 1 EACH UD MM PRN (21:36)
[2018-08-22] MEDS ORDERED: guaiFENesin/D-METHORPHAN HB 10 ML UNIT-DOSE CUPS PO PRN (21:36)
[2018-08-22] MEDS ORDERED: chlordiazePOXIDE HCL 25 MG CAPSULE PO PRN (21:36)
[2018-08-22] MEDS ORDERED: P-EPHED 60MG/TRIPROLIDI 2.5MG TABLET PO PRN (21:36)
[2018-08-22] MEDS ORDERED: MAGNESIUM CITRATE 300 ML BOTTLE PO PRN (21:36)
[2018-08-22] MEDS ORDERED: MAGNESIUM HYDROX 2400MG/30ML ORAL SUSPENSION 30 ML CUP PO PRN (21:36)
[2018-08-22] MEDS ORDERED: NICOTINE POLACRILEX 2 MG GUM BC PRN (21:36)
[2018-08-22] MEDS ORDERED: IBUPROFEN 400 MG TABLET (FP) PO PRN (21:36)
[2018-08-22] MEDS ORDERED: MAG HYDROX/AL HYDROX/SIMETH 30 ML UNIT-DOSE CUP PO PRN (21:36)
[2018-08-22] MEDS: METOPROLOL TARTRATE 25 MG TABLET (FP) PO SCH (23:17)
[2018-08-22] MEDS: PANTOPRAZOLE 40 MG TABLET (FP) PO SCH (23:17)
[2018-08-22] MEDS: chlordiazePOXIDE HCL 25 MG CAPSULE PO SCH (23:17)
[2018-08-22] MEDS: ATORVASTATIN CA 40 MG TABLET (FP) PO SCH (23:17)
[2018-08-22] MEDS: THIAMINE HCL 100 MG TABLET (FP) PO SCH (23:18)
[2018-08-22] MEDS: MELATONIN 5 MG TABLETS PO PRN (23:18)
[2018-08-23] MEDS: chlordiazePOXIDE HCL 25 MG CAPSULE PO SCH ×4 (05:37→22:27)
[2018-08-23] MEDS: metFORMIN HCL 500 MG TABLET (FP) PO SCH (06:58)
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
--- NOTE | 2018-08-23 10:08 | PN ---
S CIWA - CIWA Score Nausea/Vomitin-Mild Nausea/No Vomiting Muscle Tremors: 3 Anxiety: 2 Agitation: 1-Slight > Activity Paroxysmal Sweats: 1-Minimal Palms Moist Orientation: 1-Uncertain about Date Tacttile Disturbances: 0-None Auditory Disturbances: 0-None Visual Disturbances: 0-None Headache: 1-Very Mild CIWA-Ar Total Score: 10 BHS Progress Note (SOAP) Subjective: tremor sweating coughing sore throat oral pharyngeal mild erythema no swell no exudate no lymph node enlargement Objective: 08/23/18 10:10 Vital Signs Temperature 97.3 F L 08/23/18 09:20 Pulse Rate 101 H 08/23/18 10:00 Respiratory Rate 18 08/23/18 10:00 Blood Pressure 126/82 08/23/18 09:20 O2 Sat by Pulse Oximetry (%) Laboratory Last Values POC Glucometer 122 UNITS (80-120) 08/23/18 05:33 lab pending temp 97.3 cardiac S1S2 pulmonary clear bilaterally abdomen soft none tender regular bowel movement x 1 yesterday no nausea no vomiting Assessment: 08/23/18 10:13 alcohol withdrawal sx 08/23/18 10:14 sore throat Plan: continue detox increase oral fluid
[2018-08-23] MEDS: METOPROLOL TARTRATE 25 MG TABLET (FP) PO SCH ×2 (10:21→22:27)
[2018-08-23] MEDS: PANTOPRAZOLE 40 MG TABLET (FP) PO SCH ×2 (10:21→22:27)
[2018-08-23] MEDS: ASPIRIN 81 MG CHEWABLE TABLETS PO SCH (10:21)
[2018-08-23] MEDS: PRENATAL VITAMINS W/ FOLIC ACID TABLET (FP) PO SCH (10:21)
[2018-08-23] MEDS: NICOTINE 14 MG/24 HOURS TOPICAL PATCH TD SCH (10:23)
[2018-08-23] MEDS: ESCITALOPRAM OXALATE 10 MG TABLET (FP) PO SCH (10:23)
[2018-08-23 10:53] LABS: ALBUMIN 3.4 g/dl (3.4-5.0); ALK PHOS 74 U/L (45-117); ANION GAP 13 MMOL/L (8-16); BILIRUBIN,TOTAL 0.4 mg/dL (0.2-1); BLOOD UREA NITROGEN 6 mg/dL (7-18); CALCIUM 8.2 mg/dL (8.5-10.1); CHLORIDE 101 mmol/L (98-107); CO2 25 mmol/L (21-32); CREATININE 0.8 mg/dL (0.55-1.3); GLUCOSE,RANDOM 176 mg/dL (74-106); POTASSIUM 4.1 mmol/L (3.5-5.1); SGOT/AST 42 U/L (15-37); SGPT/ALT 33 U/L (13-61); SODIUM 138 mmol/L (136-145); TOT PROT 6.7 g/dl (6.4-8.2)
[2018-08-23 11:02] LABS: HEMATOCRIT 36.6 % (35.4-49); HEMOGLOBIN 12.1 GM/dL (11.7-16.9); MCH 28.8 pg (25.7-33.7); MEAN CELL VOLUME 87.3 fl (80-96); PLATELET COUNT 215 K/MM3 (134-434); RBC 4.19 M/mm3 (4.00-5.60); RDW 15.2 % (11.9-15.9); WHITE BLOOD COUNT 3.1 K/mm3 (4.0-10.0)
[2018-08-23 22:05] LABS: URINE APPEARANCE CLEAR; URINE BILIRUBIN NEGATIVE (<2.0 mg/dL); URINE COLOR STRAW; URINE GLUCOSE (UA) 3+ (NEGATIVE); URINE KETONE NEGATIVE (NEGATIVE); URINE LEUK ESTERASE NEGATIVE (NEGATIVE); URINE NITRITE NEGATIVE (NEGATIVE); URINE PROTEIN 2+ (NEGATIVE); URINE UROBILINOGEN NEGATIVE mg/dL (0.2-1.0)
[2018-08-23 22:08] LABS: URINE MUCUS RARE
[2018-08-23] MEDS: ATORVASTATIN CA 40 MG TABLET (FP) PO SCH (22:27)
[2018-08-23] MEDS: THIAMINE HCL 100 MG TABLET (FP) PO SCH (22:27)
[2018-08-23] MEDS: MELATONIN 5 MG TABLETS PO PRN (22:28)
[2018-08-23] MEDS: hydrOXYzine PAMOATE 50 MG CAPSULE (FP) PO PRN (23:32)
[2018-08-24] MEDS: chlordiazePOXIDE HCL 25 MG CAPSULE PO SCH ×3 (05:54→17:49)
[2018-08-24] MEDS: metFORMIN HCL 500 MG TABLET (FP) PO SCH (06:10)
[2018-08-24] MEDS: PANTOPRAZOLE 40 MG TABLET (FP) PO SCH ×2 (10:23→22:10)
[2018-08-24] MEDS: ASPIRIN 81 MG CHEWABLE TABLETS PO SCH (10:23)
[2018-08-24] MEDS: NICOTINE 14 MG/24 HOURS TOPICAL PATCH TD SCH (10:23)
[2018-08-24] MEDS: PRENATAL VITAMINS W/ FOLIC ACID TABLET (FP) PO SCH (10:23)
[2018-08-24] MEDS: ESCITALOPRAM OXALATE 10 MG TABLET (FP) PO SCH (10:24)
[2018-08-24] MEDS: METOPROLOL TARTRATE 25 MG TABLET (FP) PO SCH ×2 (10:25→22:10)
--- NOTE | 2018-08-24 14:03 | PN ---
S CIWA - CIWA Score Nausea/Vomitin-No Nausea/No Vomiting Muscle Tremors: None Anxiety: 0-No Anxiety, at Ease Agitation: 0-Normal Activity Paroxysmal Sweats: No Perspiration Orientation: 0-Oriented Tacttile Disturbances: 0-None Auditory Disturbances: 0-None Visual Disturbances: 0-None Headache: 0-None Present CIWA-Ar Total Score: 0 BHS Progress Note (SOAP) Subjective: S: pt states doing fine, on alcohol detox protocol, says going to rehab at [facility] O: Vital Signs - 24 hr 08/23/18 08/23/18 08/23/18 14:30 15:00 15:30 Temperature Pulse Rate 98 H 98 H 95 H Respiratory 18 18 18 Rate Blood Pressure 08/23/18 08/23/18 08/23/18 16:30 17:31 22:30 Temperature 97.1 F L Pulse Rate 90 90 89 Respiratory 18 16 19 Rate Blood Pressure 123/71 08/23/18 08/24/18 08/24/18 22:32 00:29 03:30 Temperature 97.7 F Pulse Rate 92 H Respiratory 17 18 18 Rate Blood Pressure 137/87 08/24/18 08/24/18 08/24/18 06:00 08:52 09:28 Temperature 97.1 F L 97.1 F L 97.0 F L Pulse Rate 80 80 98 H Respiratory 18 18 20 Rate Blood Pressure 104/70 104/70 111/68 08/24/18 13:40 Temperature 97.9 F Pulse Rate 100 H Respiratory 20 Rate Blood Pressure 134/93 Laboratory Tests 08/22/18 08/22/18 08/23/18 19:35 23:20 05:33 WBC RBC Hgb Hct MCV MCH MCHC RDW Plt Count MPV Sodium Potassium Chloride Carbon Dioxide Anion Gap BUN Creatinine Creat Clearance w eGFR POC Glucometer 117 122 Random Glucose Calcium Total Bilirubin AST ALT Alkaline Phosphatase Total Protein Albumin Urine Color Straw Urine Appearance Clear Urine pH 5.0 Ur Specific [place] 1.018 Urine Protein 2+ H Urine Glucose (UA) 3+ H Urine Ketones Negative Urine Blood 1+ H Urine Nitrite Negative Urine Bilirubin Negative Urine Urobilinogen Negative Ur Leukocyte Esterase Negative Urine WBC (Auto) None Urine RBC (Auto) <1 Urine Mucus Rare RPR Titer 08/23/18 08/23/18 08/23/18 07:00 07:00 07:00 WBC 3.1 L RBC 4.19 Hgb 12.1 Hct 36.6 MCV 87.3 MCH 28.8 MCHC 33.0 RDW 15.2 Plt Count 215 MPV 9.0 Sodium 138 Potassium 4.1 Chloride 101 Carbon Dioxide 25 Anion Gap 13 BUN 6 L Creatinine 0.8 Creat Clearance w eGFR > 60 POC Glucometer Random Glucose 176 H Calcium 8.2 L Total Bilirubin 0.4 AST 42 H ALT 33 Alkaline Phosphatase 74 Total Protein 6.7 Albumin 3.4 Urine Color Urine Appearance Urine pH Ur Specific [place] Urine Protein Urine Glucose (UA) Urine Ketones Urine Blood Urine Nitrite Urine Bilirubin Urine Urobilinogen Ur Leukocyte Esterase Urine WBC (Auto) Urine RBC (Auto) Urine Mucus RPR Titer Nonreactive 08/23/18 08/24/18 16:31 05:53 WBC RBC Hgb Hct MCV MCH MCHC RDW Plt Count MPV Sodium Potassium Chloride Carbon Dioxide Anion Gap BUN Creatinine Creat Clearance w eGFR POC Glucometer 190 154 Random Glucose Calcium Total Bilirubin AST ALT Alkaline Phosphatase Total Protein Albumin Urine Color Urine Appearance Urine pH Ur Specific [place] Urine Protein Urine Glucose (UA) Urine Ketones Urine Blood Urine Nitrite Urine Bilirubin Urine Urobilinogen Ur Leukocyte Esterase Urine WBC (Auto) Urine RBC (Auto) Urine Mucus RPR Titer a/p: Continue alcohol detox protocol: pt doing well, d/c to rehab facility
[2018-08-24] MEDS: ATORVASTATIN CA 40 MG TABLET (FP) PO SCH (22:09)
[2018-08-24] MEDS: chlordiazePOXIDE 5 MG CAPSULE PO SCH (22:09)
[2018-08-24] MEDS: THIAMINE HCL 100 MG TABLET (FP) PO SCH (22:10)
[2018-08-24] MEDS: MELATONIN 5 MG TABLETS PO PRN (22:10)
[2018-08-24] MEDS: hydrOXYzine PAMOATE 50 MG CAPSULE (FP) PO PRN (22:52)
[2018-08-25] MEDS: chlordiazePOXIDE 5 MG CAPSULE PO SCH (05:41)
[2018-08-25 06:04] VITALS: BP 129/79; PULSE 79; TEMP 96.8
[2018-08-25] MEDS: metFORMIN HCL 500 MG TABLET (FP) PO SCH (06:09)
--- NOTE | 2018-08-25 08:38 | DS ---
[facility] Detox Discharge Summary Admission Date: 08/22/18 Discharge Date: 08/25/18 - History Present History: Alcohol Dependence Additional Comments: 43 years old male admitted on 08/22/18 for alcohol withdrawal stabilization alert no acute distress [facility] Results Vital Signs: Vital Signs Temperature 96.8 F L 08/25/18 06:04 Pulse Rate 79 08/25/18 06:04 Respiratory Rate 20 08/25/18 06:30 Blood Pressure 129/79 08/25/18 06:04 O2 Sat by Pulse Oximetry (%) Pertinent Admission Physical Exam Findings: alcohol withdrawal sx Laboratory Last Values WBC 3.1 K/mm3 (4.0-10.0) L 08/23/18 07:00 RBC 4.19 M/mm3 (4.00-5.60) 08/23/18 07:00 Hgb 12.1 GM/dL (11.7-16.9) 08/23/18 07:00 Hct 36.6 % (35.4-49) 08/23/18 07:00 MCV 87.3 fl (80-96) 08/23/18 07:00 MCH 28.8 pg (25.7-33.7) 08/23/18 07:00 MCHC 33.0 g/dl (32.0-35.9) 08/23/18 07:00 RDW 15.2 % (11.9-15.9) 08/23/18 07:00 Plt Count 215 K/MM3 (134-434) 08/23/18 07:00 MPV 9.0 fl (7.5-11.1) 08/23/18 07:00 Sodium 138 mmol/L (136-145) 08/23/18 07:00 Potassium 4.1 mmol/L (3.5-5.1) 08/23/18 07:00 Chloride 101 mmol/L (98-107) 08/23/18 07:00 Carbon Dioxide 25 mmol/L (21-32) 08/23/18 07:00 Anion Gap 13 MMOL/L (8-16) 08/23/18 07:00 BUN 6 mg/dL (7-18) L 08/23/18 07:00 Creatinine 0.8 mg/dL (0.55-1.3) 08/23/18 07:00 Creat Clearance w eGFR > 60 (>60) 08/23/18 07:00 POC Glucometer 266 UNITS (80-120) 08/25/18 05:40 Random Glucose 176 mg/dL (74-106) H 08/23/18 07:00 Calcium 8.2 mg/dL (8.5-10.1) L 08/23/18 07:00 Total Bilirubin 0.4 mg/dL (0.2-1) 08/23/18 07:00 AST 42 U/L (15-37) H 08/23/18 07:00 ALT 33 U/L (13-61) 08/23/18 07:00 Alkaline Phosphatase 74 U/L (45-117) 08/23/18 07:00 Total Protein 6.7 g/dl (6.4-8.2) 08/23/18 07:00 Albumin 3.4 g/dl (3.4-5.0) 08/23/18 07:00 Urine Color Straw 08/22/18 23:20 Urine Appearance Clear 08/22/18 23:20 Urine pH 5.0 (5.0-8.0) 08/22/18 23:20 Ur Specific [place] 1.018 (1.010-1.035) 08/22/18 23:20 Urine Protein 2+ (NEGATIVE) H 08/22/18 23:20 Urine Glucose (UA) 3+ (NEGATIVE) H 08/22/18 23:20 Urine Ketones Negative (NEGATIVE) 08/22/18 23:20 Urine Blood 1+ (NEGATIVE) H 08/22/18 23:20 Urine Nitrite Negative (NEGATIVE) 08/22/18 23:20 Urine Bilirubin Negative (<2.0 mg/dL) 08/22/18 23:20 Urine Urobilinogen Negative mg/dL (0.2-1.0) 08/22/18 23:20 Ur Leukocyte Esterase Negative (NEGATIVE) 08/22/18 23:20 Urine WBC (Auto) None /hpf (3-5) 08/22/18 23:20 Urine RBC (Auto) <1 /hpf (0-3) 08/22/18 23:20 Urine Mucus Rare 08/22/18 23:20 RPR Titer Nonreactive (NONREACTIVE) 08/23/18 07:00 lab noted - Treatment Hospital Course: Detox Protocol Followed, Detoxed Safely, Responded well, Discharged Condition Good, Rehab Referral Accepted Patient has Accepted a Rehab Referral to: [facility] - Medication Discharge Medications: Ambulatory Orders Aspirin [ASA -] 81 mg PO DAILY 10/15/13 Omeprazole [Prilosec (RX)] 40 mg PO BID 10/15/13 Escitalopram Oxalate [Lexapro -] 10 mg PO DAILY 08/22/18 Atorvastatin Ca [Lipitor] 40 mg PO HS #14 tablet 08/25/18 Metoprolol Tartrate [Lopressor -] 25 mg PO BID #30 tablet 08/25/18 metFORMIN HCL [Glucophage -] 1,000 mg PO DAILY #14 tablet 08/25/18 - Diagnosis (1) GERD (gastroesophageal reflux disease) Status: Chronic Qualifiers: Esophagitis presence: without esophagitis Qualified Code(s): K21.9 - Gastro -esophageal reflux disease without esophagitis (2) Alcohol dependence with uncomplicated withdrawal Status: Acute (3) Hypercholesterolemia Status: Chronic (4) Hypertension Status: Chronic Qualifiers: Hypertension type: essential hypertension Qualified Code(s): I10 - Essential (primary) hypertension (5) Nicotine dependence Status: Acute Qualifiers: Nicotine product type: cigarettes Substance use status: in withdrawal Qualified Code(s): F17.213 - Nicotine dependence, cigarettes, with withdrawal (6) Type II diabetes mellitus Status: Chronic Qualifiers: Diabetes mellitus long-term insulin use: without long-term use Diabetes mellitus complication status: without complication Qualified Code(s): E11.9 - Type 2 diabetes mellitus without complications - AMA Did Patient Leave Against Medical Advice: No
[2018-08-25] MEDS ORDERED: chlordiazePOXIDE HCL 10 MG CAPSULE PO SCH (23:00)
== END 2018-08-25 09:10 | disposition home or self-care (01) | DRG 775 ==
LOC: YASAS 16:25 → Y3N 21:37
PROVIDERS: ADMIT Surgery; ATTEND Surgery
PROC: HZ2ZZZZ Detoxification Services for Substance Abuse Treatment (ICD-10-PCS; principal; 2018-08-22)
DX: F10.230 Alcohol dependence with withdrawal, uncomplicated (principal); F17.213 Nicotine dependence, cigarettes, with withdrawal; F19.24 Other psychoactive substance dependence with psychoactive substance-induced mood disorder; F41.9 Anxiety disorder, unspecified; I10 Essential (primary) hypertension; E78.00 Pure hypercholesterolemia, unspecified; E11.9 Type 2 diabetes mellitus without complications; K21.9 Gastro-esophageal reflux disease without esophagitis; Z79.84 Long term (current) use of oral hypoglycemic drugs; Z88.5 Allergy status to narcotic agent; Z88.8 Allergy status to other drugs, medicaments and biological substances
CPT/HCPCS: 36415; 80053; 81003; 81015; 82962; 85027; 86593

== ENCOUNTER 2018-09-02 18:00 | Inpatient (IN) | payer OTHER ==
[2018-09-02 20:16] VITALS: BMI 28.7
--- NOTE | 2018-09-02 21:39 | HP ---
CIWA Score Nausea/Vomitin-No Nausea/No Vomiting Muscle Tremors: 1-None Visible, but [place] Anxiety: 4-Mod. Anxious/Guarded Agitation: 0-Normal Activity Paroxysmal Sweats: 3 Orientation: 2-Disoriented Date<2 days Tacttile Disturbances: 2-Mild Itch/Numbness/Burn (TO BOTH FEET) Auditory Disturbances: 0-None Visual Disturbances: 0-None Headache: 0-None Present CIWA-Ar Total Score: 12 - Admission Criteria [facility]ASAS Guidelines: Admission for Medically Managed Detox: Requires at least one of the followin. CIWA greater than 12 2. Seizures within the past 24 hours 3. Delirium tremens within the past 24 hours 4. Hallucinations within the past 24 hours 5. Acute intervention needed for co occurring medical disorder 6. Acute intervention needed for co occurring psychiatric disorder 7. Severe withdrawal that cannot be handled at a lower level of care (continued vomiting, continued diarrhea, abnormal vital signs) requiring intravenous medication and/or fluids 8. Patient presents the following: CIWA greater than 12, Acute intervention needed for co-occurring med or psych disorder (DM, HTN, HLD, MANIC DEPRESSIVE) Admission Criteria Met: Admission criteria met Admission ROS [facility] Chief Complaint: C/O WORSENING WITHDRAWAL SX'S Allergies/Adverse Reactions: Allergies Allergy/AdvReac Type Severity Reaction Status Date / Time morphine Allergy Verified 08/22/18 19:50 KELLY Inhibitors AdvReac Verified 08/22/18 19:50 History of Present Illness: 43 Y.O. MALE WITH EXTENSIVE ALCOHOLISM HERE FOR DETOX. CLIENT RECENTLY DC FROM THIS PROGRAM 1 WEEK AGO. REPRESENTS TODAY WITH C/O WORSENING WITHDRAWAL SX'S THAT HAS LEAD TO HIM RELAPSING. CIWA 12 WITH HX/O DM, HTN, HLD, MANIC DEPRESSIVE RECENTLY DX WITH SPLENIC VEIN THROMBOSIS NOW ON LOVENOX. NOTED ON DC PAPER FROM HEALTH SYSTEM WHERE HE WAS DC FROM TODAY. ACCORDING TO CLIENT HE WAS HOSPITALIZED FOR ABOUT 5 DAYS BUT REPORTS HE WAS DRINKING ALCOHOL WHILE HOSPITALIZED UTOX + BAR, BZO. HE STATES HE IS DRINKING ABOUT 1 PINT OF VODKA DAILY LAST DRINK A FEW HOURS AGO.DENIES HX/O SEIZURE, +FT'S WITH WITHDRAWAL SX'S. DENIES SI/HI. CURRENTLY HOMELESS, UNEMPLOYED, OPEN LEGALS. Exam Limitations: No Limitations - Ebola screening Have you traveled outside of the country in the last 21 days: No (N) Have you had contact with anyone from an Ebola affected area: No Have you been sick,other than usual withdrawal symptoms: No Do you have a fever: No - Review of Systems Constitutional: Diaphoresis (SWEATS), Loss of Appetite, Changes in sleep EENT: reports: Blurred Vision (WEARS GLASSES) Respiratory: reports: No Symptoms reported Cardiac: reports: Palpitations GI: reports: Poor Fluid Intake, Abdominal cramping : reports: No Symptoms Reported Musculoskeletal: reports: No Symptoms Reported Integumentary: reports: Sweating Neuro: reports: Tremors Endocrine: reports: Other (HX/O DM) Hematology: reports: Blood Clots (RECENTLY DX W/ SPLENIC VEIN THROMBOSIS) Psychiatric: reports: Orientated x3, Agitated (IRRITABLE), Anxious, Depressed Other Systems: Reviewed and Negative Patient History - Patient Medical History Hx Anemia: No Hx Asthma: No Hx Chronic Obstructive Pulmonary Disease (COPD): No Hx Cancer: No Hx Cardiac Disorders: No Hx Congestive Heart Failure: No Hx Hypertension: Yes (Pt is on meds) Hx Hypercholesterolemia: Yes Hx Pacemaker: No HX Cerebrovascular Accident: No Hx Seizures: No Hx Dementia: No Hx Diabetes: Yes (Type II) Hx Gastrointestinal Disorders: Yes (pancreatitis 2013) Hx Liver Disease: Yes (fatty liver) Hx Genitourinary Disorders: No Hx Sexually Transmitted Disorders: No Hx Renal Disease (ESRD): No Hx Thyroid Disease: No Hx Human Immunodeficiency Virus (HIV): No Hx Hepatitis C: No Hx Depression: Yes Hx Suicide Attempt: No Hx Bipolar Disorder: No Hx Schizophrenia: No Other Medical History: SPLENIC VEIN THROMBOSIS - Patient Surgical History Past Surgical History: No Hx Neurologic Surgery: No Hx Cataract Extraction: No Hx Cardiac Surgery: No Hx Lung Surgery: No Hx Breast Surgery: No Hx Breast Biopsy: No Hx Abdominal Surgery: No Hx Appendectomy: No Hx Cholecystectomy: No Hx Genitourinary Surgery: No Hx Section: No Hx Orthopedic Surgery: No Anesthesia Reaction: No - PPD History Previous Implant?: Yes Documented Results: Negative w/proof Implanted On Prior R Admission?: No Date: 08/24/18 Results: 0MM PPD to be Administered?: No - Smoking Cessation Smoking history: Current every day smoker Have you smoked in the past 12 months: Yes Aproximately how many cigarettes per day: 10 Cigars Per Day: 0 Hx Chewing Tobacco Use: No Initiated information on smoking cessation: Yes 'Breaking Loose' booklet given: 09/02/18 - Substance & Tx. History Hx Alcohol Use: Yes Hx Substance Use: Yes Substance Use Type: Alcohol Hx Substance Use Treatment: Yes ([facility]) - Substances Abused VODKA Route: Oral Frequency: Daily Amount used: 1 PINT Age of first use: 15 Date of Last Use: 09/02/18 Family Disease History - Family Disease History Family Disease History: Heart Disease: Mother (HTN, Throat), CA: Mother Admission Physical Exam [facility] - Vital Signs Vital Signs: Vital Signs - 24 hr 09/02/18 20:02 Temperature 96.8 F L Pulse Rate 102 H Respiratory 18 Rate Blood Pressure 118/80 - Physical General Appearance: Yes: Appropriately Dressed, Anxious HEENTM: Yes: EOMI, Normocephalic, Normal Voice, NOAH, Pharynx Normal, Other ( EYE GLASSES) Respiratory: Yes: Chest Non-Tender, Lungs Clear, Normal Breath Sounds, No Respiratory Distress, No Accessory Muscle Use Neck: Yes: No masses,lesions,Nodules, Supple, Trachea in good position Breast: Yes: Breast Exam Deferred Cardiology: Yes: Regular Rhythm, S1, S2, Tachycardia Abdominal: Yes: Non Tender, Soft, Increased Bowel Sounds, Protuberent Genitourinary: Yes: Other (NO C/O) Back: Yes: Normal Inspection Musculoskeletal: Yes: full range of Motion, Gait Steady Extremities: Yes: Normal Capillary Refill, Normal Range of Motion, Non-Tender, Tremors (FELT), Pedal Edema (NOT PITTING TO BLE) Neurological: Yes: Fully Oriented, Alert, Motor Strength 5/5, Depressed Affect Integumentary: Yes: [place] Lymphatic: Yes: Within Normal Limits - Diagnostic (1) Manic, depressive Current Visit: Yes Status: Chronic Qualifiers: Active/Remission status: currently active Current bipolar episode type: depressed Current episode severity: unspecified Qualified Code(s): F31.30 - Bipolar disorder, current episode depressed, mild or moderate severity, unspecified (2) Splenic vein thrombosis Current Visit: Yes Status: Chronic Comment: LOVENOX (3) At risk for dehydration due to poor fluid intake Current Visit: Yes Status: Acute (4) Alcohol dependence with uncomplicated withdrawal Current Visit: Yes Status: Acute (5) Alcohol-induced mood disorder Current Visit: Yes Status: Chronic (6) Nicotine dependence Current Visit: Yes Status: Chronic Qualifiers: Nicotine product type: cigarettes Substance use status: in withdrawal Qualified Code(s): F17.213 - Nicotine dependence, cigarettes, with withdrawal (7) GERD (gastroesophageal reflux disease) Current Visit: Yes Status: Chronic Qualifiers: Esophagitis presence: without esophagitis Qualified Code(s): K21.9 - Gastro -esophageal reflux disease without esophagitis (8) Hypercholesterolemia Current Visit: Yes Status: Chronic (9) Hypertension Current Visit: Yes Status: Chronic Qualifiers: Hypertension type: essential hypertension Qualified Code(s): I10 - Essential (primary) hypertension (10) Type II diabetes mellitus Current Visit: Yes Status: Chronic Qualifiers: Diabetes mellitus correction insulin use: without correction use Diabetes mellitus complication status: without complication Qualified Code(s): E11.9 - Type 2 diabetes mellitus without complications Cleared for Admission [facility] - Detox or Rehab [facility] Level of Care: Medically Managed Detox Regimen/Protocol: Librium Claeared for Rehab Admission: No S Breath Alcohol Content Breath Alcohol Content: 0.164 Urine Drug Screen - Results Drug Screen Negative: No Urine Drug Screen Results: BAR-Barbiturates, BZO-Benzodiazepines Inpatient Rehab Admission - Rehab Decision to Admit Inpatient rehab admission?: No
[2018-09-02] MEDS ORDERED: DICYCLOMINE HCL 10 MG CAPSULE PO PRN (21:58)
[2018-09-02] MEDS ORDERED: P-EPHED 60MG/TRIPROLIDI 2.5MG TABLET PO PRN (21:58)
[2018-09-02] MEDS ORDERED: ACETAMINOPHEN 325 MG TABLET (FP) PO PRN (21:58)
[2018-09-02] MEDS ORDERED: MAGNESIUM HYDROX 2400MG/30ML ORAL SUSPENSION 30 ML CUP PO PRN (21:58)
[2018-09-02] MEDS ORDERED: METHOCARBAMOL 500 MG TABLET PO PRN (21:58)
[2018-09-02] MEDS ORDERED: BISMUTH SUBSALICYLATE 524 MG/30 ML UD PO PRN (21:58)
[2018-09-02] MEDS ORDERED: MAG HYDROX/AL HYDROX/SIMETH 30 ML UNIT-DOSE CUP PO PRN (21:58)
[2018-09-02] MEDS ORDERED: ONDANSETRON *ODT* 4 MG TABLET SL PRN (21:58)
[2018-09-02] MEDS ORDERED: hydrOXYzine PAMOATE 25 MG CAPSULE (FP) PO PRN (21:58)
[2018-09-02] MEDS ORDERED: MENTHOL/PHENOL 1 EACH UD MM PRN (21:58)
[2018-09-02] MEDS ORDERED: guaiFENesin 200 MG/10 ML 10 ML UNIT-DOSE CUPS PO PRN (21:58)
[2018-09-02] MEDS ORDERED: IBUPROFEN 400 MG TABLET (FP) PO PRN (21:58)
[2018-09-02] MEDS ORDERED: MAGNESIUM CITRATE 300 ML BOTTLE PO PRN (21:58)
[2018-09-02] MEDS ORDERED: chlordiazePOXIDE HCL 25 MG CAPSULE PO PRN (22:01)
[2018-09-03] MEDS: THIAMINE HCL 100 MG TABLET (FP) PO SCH ×2 (01:03→22:23)
[2018-09-03] MEDS: chlordiazePOXIDE HCL 25 MG CAPSULE PO SCH ×5 (01:03→22:23)
[2018-09-03] MEDS: NICOTINE POLACRILEX 2 MG GUM BUC PRN ×2 (01:32→21:18)
[2018-09-03] MEDS: metFORMIN HCL 500 MG TABLET (FP) PO SCH (06:36)
[2018-09-03] MEDS: METOPROLOL TARTRATE 25 MG TABLET (FP) PO SCH ×2 (10:22→22:23)
[2018-09-03] MEDS: PRENATAL VITAMINS W/ FOLIC ACID TABLET (FP) PO SCH (10:22)
[2018-09-03] MEDS: ASPIRIN 81 MG CHEWABLE TABLETS PO SCH (10:22)
[2018-09-03] MEDS: PANTOPRAZOLE 40 MG TABLET (FP) PO SCH (10:22)
[2018-09-03] MEDS: NICOTINE 14 MG/24 HOURS TOPICAL PATCH TD SCH (10:22)
--- NOTE | 2018-09-03 10:28 | CONSULT ---
[facility] Psychiatric Consult - Data Date of interview: 09/03/18 Admission source: [facility] Identifying data: Readmission to [facility] for this 43 y/o AA male self- referred for detoxification (alcohol). Evaluated on . Patient is single, no children, homeless, unemployed and deprived of any source of income. Substance Abuse History: Confirmed by the patient in this interview. Details in current [facility] report as follows : Smoking history: Current every day smoker. Have you smoked in the past 12 months: Yes. Aproximately how many cigarettes per day: 10. Cigars Per Day: 0. Hx Chewing Tobacco Use: No. Initiated information on smoking cessation: Yes. 'Breaking Loose' booklet given: . - Substance & Tx. History. Hx Alcohol Use: Yes. Hx Substance Use: Yes. Substance Use Type: Alcohol. Hx Substance Use Treatment: Yes ([facility]). - Substances Abused. VODKA. Route: Oral. Frequency: Daily. Amount used: 1 PINT. Age of first use: 15. Date of Last Use: 09/02/18 Medical History: Remarkable for diabetes mellitus, hypertension, antecedent of pancreatitis (2013), fatty liver, dyslipidemia and recently diagnosed splenic vein thrombosis. Psychiatric History: No reported history of psychiatric hospitalizations but the patient indicates a long standing history of MDD, diagnosed about 10 years ago, at a previous admission to a rehabilitation treatment center in [place]. Used to be on paroxetine (40 mg/day). Switched to escitalopram 10 mg/day + doxepin (insomnia) at [facility]. Mr Pal admits to having ignored referrals to [facility]PD care. Has not seen a mental health care provider since his discharge from [facility] two weeks ago. Patient denies history of suicide attempts. Physical/Sexual Abuse/Trauma History: No history. Additional Comment: Urine Drug Screen Results: BAR-Barbiturates, BZO- Benzodiazepines. Noted. Mental Status Exam - Mental Status Exam Alert and Oriented to: Time, Place, Person Cognitive Function: Good Patient Appearance: Well Groomed (wearing eyeglasses) Mood: Withdrawn, Anxious, Apprehensive Affect: Mood Congruent, Constricted Patient Behavior: Fatigued, Cooperative Speech Pattern: Clear, Appropriate Voice Loudness: Normal Thought Process: Intact, Goal Oriented Thought Disorder: Not Present Hallucinations: Denies Suicidal Ideation: Denies Homicidal Ideation: Denies Sleep: Poorly, Difficulty falling asleep Appetite: Good Muscle strength/Tone: Normal Gait/Station: Normal Psychiatric Findings - Problem List ([place] 1, 2,3) (1) Alcohol dependence with uncomplicated withdrawal Current Visit: Yes Status: Acute (2) Nicotine dependence Current Visit: Yes Status: Chronic Qualifiers: Nicotine product type: cigarettes Substance use status: in withdrawal Qualified Code(s): F17.213 - Nicotine dependence, cigarettes, with withdrawal (3) Alcohol-induced mood disorder Current Visit: Yes Status: Suspected (4) Depressive disorder Current Visit: Yes Status: Chronic Comment: As per history and self-report. (5) Insomnia Current Visit: Yes Status: Chronic (6) Non-compliance Current Visit: Yes Status: Chronic - Initial Treatment Plan Initial Treatment Plan: Psychoeducation. Sleep hygiene. Detoxification. Support. AA meetings. Motivational sessions. Resume lexapro 10 mg po daily ( patient's request). Insomnia is addressed with melatonin at bedtime. Side effects/benefits of these two drugs are discussed with the patient. Consent ( verbal) granted to MD. Lester.
--- NOTE | 2018-09-03 14:40 | PN ---
S CIWA - CIWA Score Nausea/Vomitin-No Nausea/No Vomiting Muscle Tremors: 3 Anxiety: 0-No Anxiety, at Ease Agitation: 0-Normal Activity Paroxysmal Sweats: 3 Orientation: 0-Oriented Tacttile Disturbances: 2-Mild Itch/Numbness/Burn Auditory Disturbances: 2-Mild Harshness/Frighten Visual Disturbances: 2-Mild Sensitivity Headache: 0-None Present CIWA-Ar Total Score: 12 [facility] Progress Note (SOAP) Subjective: Sweating, Itching, Fatigue, Tremors. Objective: PATIENT A & O X 3. IN NO ACUTE DISTRESS. 09/03/18 14:39 Vital Signs Temperature 98.4 F 09/03/18 13:50 Pulse Rate 93 H 09/03/18 14:00 Respiratory Rate 18 09/03/18 14:00 Blood Pressure 136/87 09/03/18 13:50 O2 Sat by Pulse Oximetry (%) Laboratory Tests 09/03/18 06:36 POC Glucometer 278 ADMISSION LAB RESULTS PENDING. 09/03/18 14:44 Assessment: 09/03/18 14:45 WITHDRAWAL SYMPTOMS. Plan: CONTINUE DETOX. INCREASE DAILY PO FLUID INTAKE.
[2018-09-03] MEDS: MELATONIN 5 MG TABLETS PO PRN (22:24)
[2018-09-04] MEDS ORDERED: INSULIN SLIDING SCALE (NOVOLOG) 1 VIAL SQ ONE (01:21)
[2018-09-04] MEDS ORDERED: INSULIN (NOVOLOG) ASPART 100 UNITS/ML 10ML VIAL SQ ONE (01:45)
[2018-09-04] MEDS: chlordiazePOXIDE HCL 25 MG CAPSULE PO SCH ×3 (05:15→16:43)
[2018-09-04] MEDS: metFORMIN HCL 500 MG TABLET (FP) PO SCH (08:02)
--- NOTE | 2018-09-04 09:58 | PN ---
[facility] CIWA - CIWA Score Nausea/Vomitin-No Nausea/No Vomiting Muscle Tremors: 3 Anxiety: 1-Mildly Anxious Agitation: 2 Paroxysmal Sweats: 1-Minimal Palms Moist Orientation: 1-Uncertain about Date Tacttile Disturbances: 0-None Auditory Disturbances: 0-None Visual Disturbances: 0-None Headache: 0-None Present CIWA-Ar Total Score: 8 [facility] Progress Note (SOAP) Subjective: 43 years old male admitted on 09/02/18 for alcohol withdrawal stabilization treated with librium protocol experiencing tremor sweating restlessness Objective: 09/04/18 09:58 Vital Signs Temperature 96.4 F L 09/04/18 09:31 Pulse Rate 88 09/04/18 09:31 Respiratory Rate 18 09/04/18 09:31 Blood Pressure 125/79 09/04/18 09:31 O2 Sat by Pulse Oximetry (%) Laboratory Last Values POC Glucometer 85 UNITS (80-120) 09/04/18 05:14 09/04/18 09:58 lab pending Assessment: 09/04/18 09:59 alcohol withdrawal sx Plan: continue detox
[2018-09-04] MEDS: PANTOPRAZOLE 40 MG TABLET (FP) PO SCH (10:11)
[2018-09-04] MEDS: ASPIRIN 81 MG CHEWABLE TABLETS PO SCH (10:11)
[2018-09-04] MEDS: PRENATAL VITAMINS W/ FOLIC ACID TABLET (FP) PO SCH (10:11)
[2018-09-04] MEDS: ESCITALOPRAM OXALATE 10 MG TABLET (FP) PO SCH (10:12)
[2018-09-04] MEDS: METOPROLOL TARTRATE 25 MG TABLET (FP) PO SCH ×2 (10:12→22:28)
[2018-09-04] MEDS: NICOTINE 14 MG/24 HOURS TOPICAL PATCH TD SCH (10:14)
[2018-09-04] MEDS: NICOTINE POLACRILEX 2 MG GUM BUC PRN ×2 (10:14→16:44)
[2018-09-04 11:26] LABS: BASO % 0.6 % (0-2.0); HEMATOCRIT 33.3 % (35.4-49); HEMOGLOBIN 11.3 GM/dL (11.7-16.9); LYMPH % 47.6 % (8-40); MCH 29.6 pg (25.7-33.7); MEAN CELL VOLUME 87.2 fl (80-96); MEAN PLT VOLUME 9.4 fl (7.5-11.1); MONO % 12.2 % (3.8-10.2); NEUT % 37.6 % (42.8-82.8); PLATELET COUNT 219 K/MM3 (134-434); RBC 3.81 M/mm3 (4.00-5.60); RDW 15.1 % (11.9-15.9); WHITE BLOOD COUNT 3.3 K/mm3 (4.0-10.0)
[2018-09-04 11:54] LABS: ALBUMIN 3.3 g/dl (3.4-5.0); ALK PHOS 54 U/L (45-117); ANION GAP 6 MMOL/L (8-16); BILIRUBIN,TOTAL 0.4 mg/dL (0.2-1); BLOOD UREA NITROGEN 9 mg/dL (7-18); CALCIUM 8.7 mg/dL (8.5-10.1); CHLORIDE 103 mmol/L (98-107); CO2 31 mmol/L (21-32); CREATININE 0.7 mg/dL (0.55-1.3); GLUCOSE,RANDOM 136 mg/dL (74-106); POTASSIUM 3.6 mmol/L (3.5-5.1); SGOT/AST 26 U/L (15-37); SGPT/ALT 34 U/L (13-61); SODIUM 140 mmol/L (136-145); TOT PROT 6.3 g/dl (6.4-8.2)
[2018-09-04] MEDS: chlordiazePOXIDE HCL 10 MG CAPSULE PO SCH (22:28)
[2018-09-04] MEDS: THIAMINE HCL 100 MG TABLET (FP) PO SCH (22:28)
[2018-09-04] MEDS: MELATONIN 5 MG TABLETS PO PRN (22:31)
--- NOTE | 2018-09-04 23:46 | PN ---
[facility] Progress Note Note: Patient's blood sugar level is 447mg/dl. Patient is asymptomatic Vital Signs Temperature 97.9 F 09/04/18 21:11 Pulse Rate 85 09/04/18 21:11 Respiratory Rate 18 09/04/18 21:11 Blood Pressure 149/95 09/04/18 21:11 O2 Sat by Pulse Oximetry (%) Action: Insulin 5 units SQ ordered
[2018-09-05] MEDS: metFORMIN HCL 500 MG TABLET (FP) PO SCH ×3 (00:12→16:49)
[2018-09-05] MEDS ORDERED: INSULIN SLIDING SCALE (NOVOLOG) 1 VIAL SQ ONE (00:18)
[2018-09-05] MEDS ORDERED: INSULIN (NOVOLOG) ASPART 100 UNITS/ML 10ML VIAL SQ ONE ×2 (00:20→23:40)
[2018-09-05] MEDS: chlordiazePOXIDE HCL 10 MG CAPSULE PO SCH ×4 (05:19→22:25)
--- NOTE | 2018-09-05 10:02 | PN ---
S CIWA - CIWA Score Nausea/Vomitin-No Nausea/No Vomiting Muscle Tremors: 1-None Visible, but [place] Anxiety: 1-Mildly Anxious Agitation: 1-Slight > Activity Paroxysmal Sweats: 1-Minimal Palms Moist Orientation: 0-Oriented Tacttile Disturbances: 0-None Auditory Disturbances: 0-None Visual Disturbances: 0-None Headache: 0-None Present CIWA-Ar Total Score: 4 [facility] Progress Note (SOAP) Subjective: Vital Signs Temperature 97.0 F L 09/05/18 09:14 Pulse Rate 83 09/05/18 09:14 Respiratory Rate 18 09/05/18 09:14 Blood Pressure 118/72 09/05/18 09:14 O2 Sat by Pulse Oximetry (%) Laboratory Last Values WBC 3.3 K/mm3 (4.0-10.0) L 09/04/18 07:35 RBC 3.81 M/mm3 (4.00-5.60) L 09/04/18 07:35 Hgb 11.3 GM/dL (11.7-16.9) L 09/04/18 07:35 Hct 33.3 % (35.4-49) L 09/04/18 07:35 MCV 87.2 fl (80-96) 09/04/18 07:35 MCH 29.6 pg (25.7-33.7) 09/04/18 07:35 MCHC 34.0 g/dl (32.0-35.9) 09/04/18 07:35 RDW 15.1 % (11.9-15.9) 09/04/18 07:35 Plt Count 219 K/MM3 (134-434) 09/04/18 07:35 MPV 9.4 fl (7.5-11.1) 09/04/18 07:35 Absolute Neuts (auto) 1.2 K/mm3 (1.5-8.0) L 09/04/18 07:35 Neutrophils % 37.6 % (42.8-82.8) L D 09/04/18 07:35 Lymphocytes % 47.6 % (8-40) H D 09/04/18 07:35 Monocytes % 12.2 % (3.8-10.2) H D 09/04/18 07:35 Eosinophils % 2.0 % (0-4.5) D 09/04/18 07:35 Basophils % 0.6 % (0-2.0) 09/04/18 07:35 Nucleated RBC % 0 % (0-0) 09/04/18 07:35 Sodium 140 mmol/L (136-145) 09/04/18 07:35 Potassium 3.6 mmol/L (3.5-5.1) 09/04/18 07:35 Chloride 103 mmol/L (98-107) 09/04/18 07:35 Carbon Dioxide 31 mmol/L (21-32) 09/04/18 07:35 Anion Gap 6 MMOL/L (8-16) L 09/04/18 07:35 BUN 9 mg/dL (7-18) 09/04/18 07:35 Creatinine 0.7 mg/dL (0.55-1.3) 09/04/18 07:35 Creat Clearance w eGFR 122.51 (>60) 09/04/18 07:35 POC Glucometer 230 UNITS (80-120) 09/05/18 05:19 Random Glucose 136 mg/dL (74-106) H 09/04/18 07:35 Calcium 8.7 mg/dL (8.5-10.1) 09/04/18 07:35 Total Bilirubin 0.4 mg/dL (0.2-1) 09/04/18 07:35 AST 26 U/L (15-37) 09/04/18 07:35 ALT 34 U/L (13-61) 09/04/18 07:35 Alkaline Phosphatase 54 U/L (45-117) 09/04/18 07:35 Total Protein 6.3 g/dl (6.4-8.2) L 09/04/18 07:35 Albumin 3.3 g/dl (3.4-5.0) L 09/04/18 07:35 lab noted Objective: 09/05/18 10:05 feeling better less tremor mild sweating patient filled his medication on 09/01/18 the day before [facility] detox admission patient preferring return to primary care provider for follow up Assessment: 09/05/18 10:07 mild alcohol withdrawal sx Plan: continue detox patient is taking enoxaparin 40 mg sq once daily INR stat with the help of medical dosimetrist blood drawn result pending enoxaprin sq inititated accordingly
[2018-09-05] MEDS: NICOTINE 14 MG/24 HOURS TOPICAL PATCH TD SCH (10:16)
[2018-09-05] MEDS: ASPIRIN 81 MG CHEWABLE TABLETS PO SCH (10:16)
[2018-09-05] MEDS: METOPROLOL TARTRATE 25 MG TABLET (FP) PO SCH ×2 (10:16→22:25)
[2018-09-05] MEDS: PANTOPRAZOLE 40 MG TABLET (FP) PO SCH (10:16)
[2018-09-05] MEDS: PRENATAL VITAMINS W/ FOLIC ACID TABLET (FP) PO SCH (10:16)
[2018-09-05] MEDS: NICOTINE POLACRILEX 2 MG GUM BUC PRN ×4 (10:16→22:29)
[2018-09-05] MEDS: ESCITALOPRAM OXALATE 10 MG TABLET (FP) PO SCH (10:16)
[2018-09-05] MEDS: ENOXAPARIN NA (PORCINE) 40 MG/0.4 ML DISP.SYRIN SQ SCH (11:28)
[2018-09-05] MEDS: INSULIN SLIDING SCALE (NOVOLOG) 1 VIAL SQ SCH ×3 (11:52→22:26)
[2018-09-05 11:53] LABS: INR 1.08 (0.83-1.09); PROTHROMBIN TIME (PATIENT) 12.7 SEC (9.7-13.0)
[2018-09-05] MEDS: THIAMINE HCL 100 MG TABLET (FP) PO SCH (22:25)
[2018-09-05] MEDS: MELATONIN 5 MG TABLETS PO PRN (22:27)
--- NOTE | 2018-09-05 22:54 | EKG ---
Test Reason : Blood Pressure : / mmHG Vent. Rate : 111 BPM Atrial Rate : 111 BPM P-R Int : 168 ms QRS Dur : 088 ms QT Int : 332 ms P-R-T Axes : 060 013 032 degrees QTc Int : 451 ms SINUS TACHYCARDIA POSSIBLE LEFT ATRIAL ENLARGEMENT NONSPECIFIC T WAVE ABNORMALITY ABNORMAL ECG WHEN COMPARED WITH ECG OF 28-MAY-2017 14:13, NO SIGNIFICANT CHANGE WAS FOUND Confirmed by LUCIA JJ MD ([id number]) on 09/05/2018 10:53:48 PM Referred By: Confirmed By:LUCIA JJ MD
[2018-09-06] MEDS ORDERED: INSULIN (NOVOLOG MIX 70/30) 100 UNITS/ML MDV SQ ONE (06:08)
[2018-09-06] MEDS: metFORMIN HCL 500 MG TABLET (FP) PO SCH (06:13)
[2018-09-06] MEDS: INSULIN SLIDING SCALE (NOVOLOG) 1 VIAL SQ SCH ×2 (06:13→11:25)
[2018-09-06] MEDS: ENOXAPARIN NA (PORCINE) 40 MG/0.4 ML DISP.SYRIN SQ SCH (10:07)
[2018-09-06] MEDS: ASPIRIN 81 MG CHEWABLE TABLETS PO SCH (10:08)
[2018-09-06] MEDS: ESCITALOPRAM OXALATE 10 MG TABLET (FP) PO SCH (10:08)
[2018-09-06] MEDS: PANTOPRAZOLE 40 MG TABLET (FP) PO SCH (10:08)
[2018-09-06] MEDS: METOPROLOL TARTRATE 25 MG TABLET (FP) PO SCH (10:08)
[2018-09-06] MEDS: PRENATAL VITAMINS W/ FOLIC ACID TABLET (FP) PO SCH (10:08)
[2018-09-06] MEDS: NICOTINE 14 MG/24 HOURS TOPICAL PATCH TD SCH (10:09)
[2018-09-06] MEDS: chlordiazePOXIDE HCL 10 MG CAPSULE PO SCH (10:10)
[2018-09-06 13:29] VITALS: BP 148/89; PULSE 85; TEMP 97.2
--- NOTE | 2018-09-06 16:21 | DS ---
[facility] Detox Discharge Summary Admission Date: 09/03/18 Discharge Date: 09/06/18 - History Present History: Alcohol Dependence Additional Comments: 43 years old male admitted on 09/02/18 for alcohol withdrawal stabilization completed detox regimen aftercarer evelation - Physical Exam Results Vital Signs: Vital Signs Temperature 97.2 F L 09/06/18 13:28 Pulse Rate 85 09/06/18 13:28 Respiratory Rate 18 09/06/18 13:28 Blood Pressure 148/89 09/06/18 13:28 O2 Sat by Pulse Oximetry (%) Pertinent Admission Physical Exam Findings: alcohol withdrawl sx Laboratory Last Values WBC 3.3 K/mm3 (4.0-10.0) L 09/04/18 07:35 RBC 3.81 M/mm3 (4.00-5.60) L 09/04/18 07:35 Hgb 11.3 GM/dL (11.7-16.9) L 09/04/18 07:35 Hct 33.3 % (35.4-49) L 09/04/18 07:35 MCV 87.2 fl (80-96) 09/04/18 07:35 MCH 29.6 pg (25.7-33.7) 09/04/18 07:35 MCHC 34.0 g/dl (32.0-35.9) 09/04/18 07:35 RDW 15.1 % (11.9-15.9) 09/04/18 07:35 Plt Count 219 K/MM3 (134-434) 09/04/18 07:35 MPV 9.4 fl (7.5-11.1) 09/04/18 07:35 Absolute Neuts (auto) 1.2 K/mm3 (1.5-8.0) L 09/04/18 07:35 Neutrophils % 37.6 % (42.8-82.8) L D 09/04/18 07:35 Lymphocytes % 47.6 % (8-40) H D 09/04/18 07:35 Monocytes % 12.2 % (3.8-10.2) H D 09/04/18 07:35 Eosinophils % 2.0 % (0-4.5) D 09/04/18 07:35 Basophils % 0.6 % (0-2.0) 09/04/18 07:35 Nucleated RBC % 0 % (0-0) 09/04/18 07:35 PT with INR 12.70 SEC (9.7-13.0) 09/05/18 10:05 INR 1.08 (0.83-1.09) 09/05/18 10:05 Sodium 140 mmol/L (136-145) 09/04/18 07:35 Potassium 3.6 mmol/L (3.5-5.1) 09/04/18 07:35 Chloride 103 mmol/L (98-107) 09/04/18 07:35 Carbon Dioxide 31 mmol/L (21-32) 09/04/18 07:35 Anion Gap 6 MMOL/L (8-16) L 09/04/18 07:35 BUN 9 mg/dL (7-18) 09/04/18 07:35 Creatinine 0.7 mg/dL (0.55-1.3) 09/04/18 07:35 Creat Clearance w eGFR 122.51 (>60) 09/04/18 07:35 POC Glucometer 286 UNITS (80-120) 09/06/18 11:18 Random Glucose 136 mg/dL (74-106) H 09/04/18 07:35 Calcium 8.7 mg/dL (8.5-10.1) 09/04/18 07:35 Total Bilirubin 0.4 mg/dL (0.2-1) 09/04/18 07:35 AST 26 U/L (15-37) 09/04/18 07:35 ALT 34 U/L (13-61) 09/04/18 07:35 Alkaline Phosphatase 54 U/L (45-117) 09/04/18 07:35 Total Protein 6.3 g/dl (6.4-8.2) L 09/04/18 07:35 Albumin 3.3 g/dl (3.4-5.0) L 09/04/18 07:35 lab noted - Treatment Hospital Course: Detox Protocol Followed, Detoxed Safely, Responded well, Discharged Condition Good, Rehab Referral Accepted Patient has Accepted a [facility] Referral to: [facility] - Medication Discharge Medications: Ambulatory Orders Aspirin [ASA -] 81 mg PO DAILY 10/15/13 Omeprazole [Prilosec (RX)] 40 mg PO BID 10/15/13 Escitalopram Oxalate [Lexapro -] 10 mg PO DAILY 08/22/18 Atorvastatin Ca [Lipitor] 40 mg PO HS #14 tablet 08/25/18 Metoprolol Tartrate [Lopressor -] 25 mg PO BID #30 tablet 08/25/18 Metformin HCl [Glucophage] 1,000 mg PO BID 09/04/18 Enoxaparin [Lovenox -] 40 mg SQ DAILY 09/05/18 - Diagnosis (1) Alcohol dependence with uncomplicated withdrawal Status: Acute (2) GERD (gastroesophageal reflux disease) Status: Chronic Qualifiers: Esophagitis presence: without esophagitis Qualified Code(s): K21.9 - Gastro -esophageal reflux disease without esophagitis (3) Hypercholesterolemia Status: Chronic (4) Hypertension Status: Chronic Qualifiers: Hypertension type: essential hypertension Qualified Code(s): I10 - Essential (primary) hypertension (5) Nicotine dependence Status: Acute Qualifiers: Nicotine product type: cigarettes Substance use status: in withdrawal Qualified Code(s): F17.213 - Nicotine dependence, cigarettes, with withdrawal (6) Splenic vein thrombosis Status: Chronic (7) Type II diabetes mellitus Status: Chronic Qualifiers: 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
== END 2018-09-06 13:40 | disposition other institution (70) | DRG 775 ==
LOC: YASAS 18:00 → Y3N 09-03 00:06
PROVIDERS: ADMIT Surgery; ATTEND Surgery
PROC: HZ2ZZZZ Detoxification Services for Substance Abuse Treatment (ICD-10-PCS; principal; 2018-09-03)
DX: F10.230 Alcohol dependence with withdrawal, uncomplicated (principal); F10.24 Alcohol dependence with alcohol-induced mood disorder; F17.213 Nicotine dependence, cigarettes, with withdrawal; F32.9 Major depressive disorder, single episode, unspecified; I10 Essential (primary) hypertension; E78.00 Pure hypercholesterolemia, unspecified; G47.00 Insomnia, unspecified; K21.9 Gastro-esophageal reflux disease without esophagitis; E11.65 Type 2 diabetes mellitus with hyperglycemia; Z79.84 Long term (current) use of oral hypoglycemic drugs; I82.890 Acute embolism and thrombosis of other specified veins; D73.5 Infarction of spleen; Z79.01 Long term (current) use of anticoagulants; Z91.19 Patient's noncompliance with other medical treatment and regimen
CPT/HCPCS: 36415; 80053; 82962; 85025; 85610; 93005; 93010

== ENCOUNTER 2018-09-06 13:56 | Inpatient (IN) | payer OTHER ==
--- NOTE | 2018-09-06 16:22 | HP ---
[facility] Rehab Assess/Revision - Admission History Admitted to Rehab from: [facility] Date of Admission to Rehab: 09/06/18 - Findings Detox History & Physical reviewed: Yes Concur with findings: Yes Comments/Additional Findings: trasnferred from detox to rehab admissionas per protocol Inpatient Rehab Admission - Rehab Decision to Admit Inpatient rehab admission?: Yes - Initial Determination Are CD services needed?: Yes Free of communicable disease: Yes Not in need of hospitalization: Yes - Rehab Admission Criteria Previous failed treatment: Yes Poor recovery environment: Yes Comorbidities: Yes Lacks judgement: No Patient is meeting Inpatient Rehab admission criteria:: Yes
[2018-09-06] MEDS ORDERED: P-EPHED 60MG/TRIPROLIDI 2.5MG TABLET PO PRN (16:24)
[2018-09-06] MEDS ORDERED: MENTHOL/PHENOL 1 EACH UD MM PRN (16:24)
[2018-09-06] MEDS ORDERED: ACETAMINOPHEN 325 MG TABLET (FP) PO PRN (16:24)
[2018-09-06] MEDS ORDERED: guaiFENesin 200 MG/10 ML 10 ML UNIT-DOSE CUPS PO PRN (16:24)
[2018-09-06] MEDS ORDERED: MAGNESIUM CITRATE 300 ML BOTTLE PO PRN (16:24)
[2018-09-06] MEDS ORDERED: LOPERAMIDE HCL 2 MG CAPSULE PO PRN (16:24)
[2018-09-06] MEDS ORDERED: MAGNESIUM HYDROX 2400MG/30ML ORAL SUSPENSION 30 ML CUP PO PRN (16:24)
[2018-09-06] MEDS ORDERED: INSULIN SLIDING SCALE (NOVOLOG) 1 VIAL SQ SCH (16:30)
[2018-09-06] MEDS ORDERED: INSULIN (NOVOLOG) ASPART 100 UNITS/ML 10ML VIAL ONE ×2 (17:02→21:48)
[2018-09-06] MEDS: metFORMIN HCL 500 MG TABLET (FP) PO SCH (17:03)
[2018-09-06] MEDS: INSULIN SLIDING SCALE (NOVOLOG) 1 VIAL SQ SCH ×2 (17:05→21:48)
[2018-09-06] MEDS: NICOTINE 14 MG/24 HOURS TOPICAL PATCH TD SCH (17:05)
[2018-09-06] MEDS: METOPROLOL TARTRATE 25 MG TABLET (FP) PO SCH (21:46)
[2018-09-06] MEDS: ATORVASTATIN CA 40 MG TABLET (FP) PO SCH (21:46)
[2018-09-06] MEDS: THIAMINE HCL 100 MG TABLET (FP) PO SCH (21:46)
[2018-09-06] MEDS: MELATONIN 5 MG TABLETS PO PRN (21:48)
[2018-09-06] MEDS: NICOTINE POLACRILEX 2 MG GUM BC PRN (22:35)
[2018-09-07] MEDS: metFORMIN HCL 500 MG TABLET (FP) PO SCH ×2 (06:22→16:46)
[2018-09-07] MEDS: INSULIN SLIDING SCALE (NOVOLOG) 1 VIAL SQ SCH ×4 (06:23→21:37)
[2018-09-07] MEDS: ASPIRIN 81 MG CHEWABLE TABLETS PO SCH (10:30)
[2018-09-07] MEDS: PRENATAL VITAMINS W/ FOLIC ACID TABLET (FP) PO SCH (10:31)
[2018-09-07] MEDS: ENOXAPARIN NA (PORCINE) 40 MG/0.4 ML DISP.SYRIN SQ SCH (10:31)
[2018-09-07] MEDS: METOPROLOL TARTRATE 25 MG TABLET (FP) PO SCH ×2 (10:31→21:37)
[2018-09-07] MEDS: ESCITALOPRAM OXALATE 10 MG TABLET (FP) PO SCH (10:31)
[2018-09-07] MEDS: NICOTINE 14 MG/24 HOURS TOPICAL PATCH TD SCH (10:34)
[2018-09-07] MEDS ORDERED: INSULIN (NOVOLOG) ASPART 100 UNITS/ML 10ML VIAL ONE ×3 (12:07→20:35)
[2018-09-07] MEDS: THIAMINE HCL 100 MG TABLET (FP) PO SCH (21:37)
[2018-09-07] MEDS: NICOTINE POLACRILEX 2 MG GUM BC PRN (21:39)
[2018-09-07] MEDS: ATORVASTATIN CA 40 MG TABLET (FP) PO SCH (21:39)
[2018-09-07] MEDS: MELATONIN 5 MG TABLETS PO PRN (21:39)
[2018-09-08] MEDS: metFORMIN HCL 500 MG TABLET (FP) PO SCH ×2 (06:36→16:34)
[2018-09-08] MEDS ORDERED: INSULIN (NOVOLOG) ASPART 100 UNITS/ML 10ML VIAL ONE ×3 (06:39→16:18)
[2018-09-08] MEDS: INSULIN SLIDING SCALE (NOVOLOG) 1 VIAL SQ SCH ×4 (07:00→21:36)
[2018-09-08] MEDS: METOPROLOL TARTRATE 25 MG TABLET (FP) PO SCH ×2 (10:30→21:36)
[2018-09-08] MEDS: ASPIRIN 81 MG CHEWABLE TABLETS PO SCH (10:30)
[2018-09-08] MEDS: ESCITALOPRAM OXALATE 10 MG TABLET (FP) PO SCH (10:30)
[2018-09-08] MEDS: PRENATAL VITAMINS W/ FOLIC ACID TABLET (FP) PO SCH (10:30)
[2018-09-08] MEDS ORDERED: PT OWN MED DRAWER 7, Y5N ONE (10:31)
[2018-09-08] MEDS: NICOTINE 14 MG/24 HOURS TOPICAL PATCH TD SCH (10:32)
--- NOTE | 2018-09-08 11:04 | PN ---
[facility] Progress Note Note: PT BROUGHT EXTRA BOTTLES OF HIS HOME MEDS OF INVOKANA 100 MG PO DAILY AND GLIPIZIDE 10 MG PO BID AND REPORTS HE HAS A PMD DR. BONNIE COLLADO AND PRIMARY CARE WITH [facility] [place] [address] [place] [address]. PH: . PT WANTS TO GO BACK ON HIS REGIMEN PER HIS DOCTOR'S HOME ORDERS. THIS METER CALIBRATOR CALLED THE CLINIC THIS MORNING AND SPOKE TO NURSE, ANDIE SETHI LPN WHO CONFIRMED PT IS ON METFORMIN 1000 MG PO BID WELL THE TWO MEDS ABOVE TOGETHER AND FAXED COPY OF HOME MEDS FROM THEIR CLINIC. COPY OF HOME MED DOCUMENT FAXED FROM [facility] HAS BEEN FILE IN PATIENT'S CHART. Vital Signs (72 hours) 09/06/18 09/07/18 09/07/18 22:00 00:30 03:30 Temperature Pulse Rate 86 Respiratory 18 18 Rate Blood Pressure 129/74 09/07/18 09/07/18 09/08/18 06:36 10:00 00:30 Temperature 98.9 F Pulse Rate 84 84 Respiratory 18 18 Rate Blood Pressure 140/83 115/70 09/08/18 09/08/18 03:30 07:16 Temperature 97.8 F Pulse Rate 81 Respiratory 18 18 Rate Blood Pressure 115/77 Laboratory Tests 09/06/18 09/06/18 09/07/18 17:00 21:45 06:21 POC Glucometer 303 210 189 09/07/18 09/07/18 09/07/18 12:04 16:46 21:35 POC Glucometer 359 250 325 09/08/18 06:35 POC Glucometer 285 NAD PLAN:REORDER PTS DIABETIC MEDS ABOVE DISCUSSED WITH PT ON BGM MONITORING DISCUSSED WITH PT MAY READJUST MEDS DOSES IF NEEDED WHILE INPATIENT.
[2018-09-08] MEDS: ENOXAPARIN NA (PORCINE) 40 MG/0.4 ML DISP.SYRIN SQ SCH (11:27)
--- NOTE | 2018-09-08 11:54 | CONSULT ---
[facility] Psychiatric Consult - Data Date of interview: 09/08/18 Admission source: 3N Identifying data: Mr Pal is a 43 years old single Black male, unemployed, homeless seeking inpatient rehab treatment for alcohol Substance Abuse History: Reports history of alcohol use. Refer to addiction counselor's summary for further information Medical History: Significant for hypertension, dyslipidemia, type 2 diabetes mellitus, history of pancreatitis and splenic vein thrombosis. Smokes at least 10 cgarettes daily Psychiatric History: Reports being prescribed Paxil 10 years ago for anxiety while hospitalized for medical reason. Told resume writer that he has been taking it on and off till 2 months ago when he was switched to Lexapro 10 mg/day for depression while in a drug rehab in [place]. Claims that he ran out of the supply given to him on discharge. Denies previous psychiatric hospitalization or suicidal ideations. At present, reports feeling depressed anf sleeping poorly Physical/Sexual Abuse/Trauma History: Denies history of verbal, physical or sexual abuse as well as DV relationship Additional Comment: Reports history of 2 previous misdemeanor arrests. Denies being on probatio currently. Reports having an active case for criminal mischief Mental Status Exam - Mental Status Exam Alert and Oriented to: Time, Place, Person Cognitive Function: Fair Patient Appearance: Well Groomed Mood: Depressed Affect: Appropriate Patient Behavior: Cooperative Speech Pattern: Clear Voice Loudness: Normal Thought Process: Intact Thought Disorder: Not Present Hallucinations: Denies Homicidal Ideation: Denies Insight/Judgement: Fair Sleep: Poorly Appetite: Good Muscle strength/Tone: Normal Gait/Station: Normal Psychiatric Findings - Problem List ([place] 1, 2,3) (1) Depressive disorder Current Visit: Yes Status: Chronic (2) Alcohol-induced mood disorder Current Visit: Yes Status: Acute (3) Alcohol-induced sleep disorder Current Visit: Yes Status: Acute (4) Alcohol dependence Current Visit: Yes Status: Acute (5) Nicotine dependence Current Visit: No Status: Chronic Qualifiers: Nicotine product type: cigarettes Substance use status: in withdrawal Qualified Code(s): F17.213 - Nicotine dependence, cigarettes, with withdrawal (6) GERD (gastroesophageal reflux disease) Current Visit: No Status: Chronic Qualifiers: Esophagitis presence: without esophagitis Qualified Code(s): K21.9 - Gastro -esophageal reflux disease without esophagitis (7) Hypercholesterolemia Current Visit: No Status: Chronic (8) Hypertension Current Visit: No Status: Chronic Qualifiers: Hypertension type: essential hypertension Qualified Code(s): I10 - Essential (primary) hypertension (9) Splenic vein thrombosis Current Visit: No Status: Resolved Comment: FELIX (10) Type II diabetes mellitus Current Visit: No Status: Chronic Qualifiers: Diabetes mellitus nursing home insulin use: without roasterman use Diabetes mellitus complication status: without complication Qualified Code(s): E11.9 - Type 2 diabetes mellitus without complications - Initial Treatment Plan Initial Treatment Plan: 1) Resume Lexapro 10 mg po daily and Doxepin 10 mg po HS. 2) Continue inpatient rehabilitation
[2018-09-08] MEDS: PATIENT'S OWN MEDICATION (NON-FORMULARY) (Canagliflozin [Invokana] 100 MG) PO SCH (12:07)
[2018-09-08] MEDS: GLIPIZIDE PO SCH (16:35)
[2018-09-08] MEDS: NICOTINE POLACRILEX 2 MG GUM BC PRN (16:37)
[2018-09-08] MEDS: THIAMINE HCL 100 MG TABLET (FP) PO SCH (21:36)
[2018-09-08] MEDS: ATORVASTATIN CA 40 MG TABLET (FP) PO SCH (21:36)
[2018-09-08] MEDS: MELATONIN 5 MG TABLETS PO PRN (21:39)
[2018-09-08] MEDS: DOXEPIN HCL 10 MG CAPSULE PO SCH (23:34)
[2018-09-09] MEDS: metFORMIN HCL 500 MG TABLET (FP) PO SCH ×2 (06:53→17:00)
[2018-09-09] MEDS: GLIPIZIDE PO SCH ×2 (06:53→17:00)
[2018-09-09] MEDS: INSULIN SLIDING SCALE (NOVOLOG) 1 VIAL SQ SCH ×4 (06:54→21:36)
[2018-09-09] MEDS: PRENATAL VITAMINS W/ FOLIC ACID TABLET (FP) PO SCH (10:12)
[2018-09-09] MEDS: METOPROLOL TARTRATE 25 MG TABLET (FP) PO SCH ×2 (10:13→21:37)
[2018-09-09] MEDS: ENOXAPARIN NA (PORCINE) 40 MG/0.4 ML DISP.SYRIN SQ SCH (10:13)
[2018-09-09] MEDS: ASPIRIN 81 MG CHEWABLE TABLETS PO SCH (10:13)
[2018-09-09] MEDS: ESCITALOPRAM OXALATE 10 MG TABLET (FP) PO SCH (10:13)
[2018-09-09] MEDS: PATIENT'S OWN MEDICATION (NON-FORMULARY) (Canagliflozin [Invokana] 100 MG) PO SCH (10:14)
[2018-09-09] MEDS: NICOTINE 14 MG/24 HOURS TOPICAL PATCH TD SCH (10:38)
[2018-09-09] MEDS: NICOTINE 21 MG/24 HOURS TOPICAL PATCH TD SCH (11:24)
[2018-09-09] MEDS ORDERED: INSULIN (NOVOLOG) ASPART 100 UNITS/ML 10ML VIAL ONE ×2 (12:02→16:58)
[2018-09-09] MEDS: DOXEPIN HCL 10 MG CAPSULE PO SCH (21:37)
[2018-09-09] MEDS: MELATONIN 5 MG TABLETS PO PRN (21:37)
[2018-09-09] MEDS: THIAMINE HCL 100 MG TABLET (FP) PO SCH (21:37)
[2018-09-09] MEDS: ATORVASTATIN CA 40 MG TABLET (FP) PO SCH (21:37)
[2018-09-09] MEDS: NICOTINE POLACRILEX 4 MG GUM BUC PRN (21:38)
[2018-09-10] MEDS: metFORMIN HCL 500 MG TABLET (FP) PO SCH ×2 (06:44→16:43)
[2018-09-10] MEDS: GLIPIZIDE PO SCH ×2 (06:44→16:43)
[2018-09-10] MEDS: INSULIN SLIDING SCALE (NOVOLOG) 1 VIAL SQ SCH ×4 (06:45→21:43)
[2018-09-10] MEDS: METOPROLOL TARTRATE 25 MG TABLET (FP) PO SCH ×2 (10:27→21:42)
[2018-09-10] MEDS: ESCITALOPRAM OXALATE 10 MG TABLET (FP) PO SCH (10:27)
[2018-09-10] MEDS: PRENATAL VITAMINS W/ FOLIC ACID TABLET (FP) PO SCH (10:27)
[2018-09-10] MEDS: ASPIRIN 81 MG CHEWABLE TABLETS PO SCH (10:27)
[2018-09-10] MEDS: PATIENT'S OWN MEDICATION (NON-FORMULARY) (Canagliflozin [Invokana] 100 MG) PO SCH (10:28)
[2018-09-10] MEDS: ENOXAPARIN NA (PORCINE) 40 MG/0.4 ML DISP.SYRIN SQ SCH (10:28)
[2018-09-10] MEDS: NICOTINE 21 MG/24 HOURS TOPICAL PATCH TD SCH (10:30)
[2018-09-10] MEDS ORDERED: INSULIN (NOVOLOG) ASPART 100 UNITS/ML 10ML VIAL ONE (12:09)
[2018-09-10] MEDS: NICOTINE POLACRILEX 4 MG GUM BUC PRN ×3 (15:36→21:45)
[2018-09-10] MEDS: ATORVASTATIN CA 40 MG TABLET (FP) PO SCH (21:42)
[2018-09-10] MEDS: THIAMINE HCL 100 MG TABLET (FP) PO SCH (21:42)
[2018-09-10] MEDS: DOXEPIN HCL 10 MG CAPSULE PO SCH (21:43)
[2018-09-10] MEDS: MAG HYDROX/AL HYDROX/SIMETH 30 ML UNIT-DOSE CUP PO PRN (21:45)
[2018-09-11] MEDS: metFORMIN HCL 500 MG TABLET (FP) PO SCH ×2 (06:29→17:01)
[2018-09-11] MEDS: GLIPIZIDE PO SCH ×2 (06:30→17:01)
[2018-09-11] MEDS: INSULIN SLIDING SCALE (NOVOLOG) 1 VIAL SQ SCH ×4 (06:30→21:41)
[2018-09-11] MEDS: ASPIRIN 81 MG CHEWABLE TABLETS PO SCH (10:13)
[2018-09-11] MEDS: ESCITALOPRAM OXALATE 10 MG TABLET (FP) PO SCH (10:14)
[2018-09-11] MEDS: METOPROLOL TARTRATE 25 MG TABLET (FP) PO SCH ×2 (10:14→21:39)
[2018-09-11] MEDS: PRENATAL VITAMINS W/ FOLIC ACID TABLET (FP) PO SCH (10:14)
[2018-09-11] MEDS: PATIENT'S OWN MEDICATION (NON-FORMULARY) (Canagliflozin [Invokana] 100 MG) PO SCH (10:15)
[2018-09-11] MEDS: ENOXAPARIN NA (PORCINE) 40 MG/0.4 ML DISP.SYRIN SQ SCH (10:16)
[2018-09-11] MEDS: NICOTINE 21 MG/24 HOURS TOPICAL PATCH TD SCH (10:16)
[2018-09-11] MEDS: NICOTINE POLACRILEX 4 MG GUM BUC PRN ×2 (10:19→23:03)
[2018-09-11] MEDS ORDERED: INSULIN (NOVOLOG) ASPART 100 UNITS/ML 10ML VIAL ONE (12:01)
[2018-09-11] MEDS: DOXEPIN HCL 10 MG CAPSULE PO SCH (21:39)
[2018-09-11] MEDS: MELATONIN 5 MG TABLETS PO PRN (21:39)
[2018-09-11] MEDS: ATORVASTATIN CA 40 MG TABLET (FP) PO SCH (21:39)
[2018-09-11] MEDS: THIAMINE HCL 100 MG TABLET (FP) PO SCH (21:39)
[2018-09-12] MEDS: metFORMIN HCL 500 MG TABLET (FP) PO SCH ×2 (06:17→16:21)
[2018-09-12] MEDS: GLIPIZIDE PO SCH ×2 (06:18→16:22)
[2018-09-12] MEDS: INSULIN SLIDING SCALE (NOVOLOG) 1 VIAL SQ SCH ×4 (06:36→21:53)
[2018-09-12] MEDS: ENOXAPARIN NA (PORCINE) 40 MG/0.4 ML DISP.SYRIN SQ SCH (10:38)
[2018-09-12] MEDS: ASPIRIN 81 MG CHEWABLE TABLETS PO SCH (10:39)
[2018-09-12] MEDS: METOPROLOL TARTRATE 25 MG TABLET (FP) PO SCH ×2 (10:39→21:53)
[2018-09-12] MEDS: PRENATAL VITAMINS W/ FOLIC ACID TABLET (FP) PO SCH (10:39)
[2018-09-12] MEDS: PATIENT'S OWN MEDICATION (NON-FORMULARY) (Canagliflozin [Invokana] 100 MG) PO SCH (10:39)
[2018-09-12] MEDS: ESCITALOPRAM OXALATE 10 MG TABLET (FP) PO SCH (10:39)
[2018-09-12] MEDS: NICOTINE 21 MG/24 HOURS TOPICAL PATCH TD SCH (10:40)
[2018-09-12] MEDS: NICOTINE POLACRILEX 4 MG GUM BUC PRN ×3 (10:41→21:53)
[2018-09-12] MEDS ORDERED: INSULIN (NOVOLOG) ASPART 100 UNITS/ML 10ML VIAL ONE ×2 (16:19→20:14)
[2018-09-12] MEDS: DOXEPIN HCL 10 MG CAPSULE PO SCH (21:53)
[2018-09-12] MEDS: ATORVASTATIN CA 40 MG TABLET (FP) PO SCH (21:53)
[2018-09-12] MEDS: THIAMINE HCL 100 MG TABLET (FP) PO SCH (21:53)
[2018-09-12] MEDS: MELATONIN 5 MG TABLETS PO PRN (21:53)
[2018-09-12] MEDS: MAG HYDROX/AL HYDROX/SIMETH 30 ML UNIT-DOSE CUP PO PRN (21:54)
[2018-09-13] MEDS: metFORMIN HCL 500 MG TABLET (FP) PO SCH ×2 (06:29→16:48)
[2018-09-13] MEDS: GLIPIZIDE PO SCH ×2 (06:30→16:48)
[2018-09-13] MEDS: INSULIN SLIDING SCALE (NOVOLOG) 1 VIAL SQ SCH ×4 (06:45→21:35)
[2018-09-13] MEDS: NICOTINE 21 MG/24 HOURS TOPICAL PATCH TD SCH (10:21)
[2018-09-13] MEDS: ASPIRIN 81 MG CHEWABLE TABLETS PO SCH (10:21)
[2018-09-13] MEDS: PRENATAL VITAMINS W/ FOLIC ACID TABLET (FP) PO SCH (10:21)
[2018-09-13] MEDS: ESCITALOPRAM OXALATE 10 MG TABLET (FP) PO SCH (10:21)
[2018-09-13] MEDS: METOPROLOL TARTRATE 25 MG TABLET (FP) PO SCH ×2 (10:21→21:35)
[2018-09-13] MEDS: ENOXAPARIN NA (PORCINE) 40 MG/0.4 ML DISP.SYRIN SQ SCH (10:22)
[2018-09-13] MEDS: PATIENT'S OWN MEDICATION (NON-FORMULARY) (Canagliflozin [Invokana] 100 MG) PO SCH (10:22)
[2018-09-13] MEDS: NICOTINE POLACRILEX 4 MG GUM BUC PRN ×3 (10:24→21:36)
[2018-09-13] MEDS ORDERED: INSULIN (NOVOLOG) ASPART 100 UNITS/ML 10ML VIAL ONE ×2 (16:44→20:28)
[2018-09-13] MEDS: MAG HYDROX/AL HYDROX/SIMETH 30 ML UNIT-DOSE CUP PO PRN (17:49)
[2018-09-13] MEDS: ATORVASTATIN CA 40 MG TABLET (FP) PO SCH (21:35)
[2018-09-13] MEDS: DOXEPIN HCL 10 MG CAPSULE PO SCH (21:35)
[2018-09-13] MEDS: THIAMINE HCL 100 MG TABLET (FP) PO SCH (21:35)
[2018-09-13] MEDS: MELATONIN 5 MG TABLETS PO PRN (21:35)
[2018-09-14] MEDS: metFORMIN HCL 500 MG TABLET (FP) PO SCH ×2 (06:31→16:32)
[2018-09-14] MEDS: GLIPIZIDE PO SCH ×2 (06:31→16:33)
[2018-09-14] MEDS: INSULIN SLIDING SCALE (NOVOLOG) 1 VIAL SQ SCH ×4 (06:32→21:37)
[2018-09-14] MEDS: PRENATAL VITAMINS W/ FOLIC ACID TABLET (FP) PO SCH (10:31)
[2018-09-14] MEDS: METOPROLOL TARTRATE 25 MG TABLET (FP) PO SCH ×2 (10:31→21:36)
[2018-09-14] MEDS: ASPIRIN 81 MG CHEWABLE TABLETS PO SCH (10:31)
[2018-09-14] MEDS: ESCITALOPRAM OXALATE 10 MG TABLET (FP) PO SCH (10:31)
[2018-09-14] MEDS: NICOTINE 21 MG/24 HOURS TOPICAL PATCH TD SCH (10:32)
[2018-09-14] MEDS: PATIENT'S OWN MEDICATION (NON-FORMULARY) (Canagliflozin [Invokana] 100 MG) PO SCH (10:32)
[2018-09-14] MEDS: NICOTINE POLACRILEX 4 MG GUM BUC PRN ×2 (10:34→21:36)
[2018-09-14] MEDS ORDERED: ENOXAPARIN NA (PORCINE) 40 MG/0.4 ML DISP.SYRIN SQ ONE (14:21)
[2018-09-14] MEDS ORDERED: INSULIN (NOVOLOG) ASPART 100 UNITS/ML 10ML VIAL ONE ×2 (16:18→20:14)
[2018-09-14] MEDS: MELATONIN 5 MG TABLETS PO PRN (21:36)
[2018-09-14] MEDS: DOXEPIN HCL 10 MG CAPSULE PO SCH (21:36)
[2018-09-14] MEDS: THIAMINE HCL 100 MG TABLET (FP) PO SCH (21:36)
[2018-09-14] MEDS: ATORVASTATIN CA 40 MG TABLET (FP) PO SCH (21:36)
[2018-09-15] MEDS: metFORMIN HCL 500 MG TABLET (FP) PO SCH ×2 (06:20→16:26)
[2018-09-15] MEDS: GLIPIZIDE PO SCH ×2 (06:20→16:27)
[2018-09-15] MEDS: INSULIN SLIDING SCALE (NOVOLOG) 1 VIAL SQ SCH ×4 (06:44→21:37)
[2018-09-15] MEDS: METOPROLOL TARTRATE 25 MG TABLET (FP) PO SCH ×2 (10:00→21:36)
[2018-09-15] MEDS: ESCITALOPRAM OXALATE 10 MG TABLET (FP) PO SCH (10:00)
[2018-09-15] MEDS: PATIENT'S OWN MEDICATION (NON-FORMULARY) (Canagliflozin [Invokana] 100 MG) PO SCH (10:00)
[2018-09-15] MEDS: PRENATAL VITAMINS W/ FOLIC ACID TABLET (FP) PO SCH (10:00)
[2018-09-15] MEDS: ASPIRIN 81 MG CHEWABLE TABLETS PO SCH (10:00)
[2018-09-15] MEDS: ENOXAPARIN NA (PORCINE) 40 MG/0.4 ML DISP.SYRIN SQ SCH (10:01)
[2018-09-15] MEDS: NICOTINE 21 MG/24 HOURS TOPICAL PATCH TD SCH (10:01)
[2018-09-15] MEDS ORDERED: INSULIN (NOVOLOG) ASPART 100 UNITS/ML 10ML VIAL ONE ×2 (16:07→20:01)
[2018-09-15] MEDS: NICOTINE POLACRILEX 4 MG GUM BUC PRN ×2 (16:27→21:36)
[2018-09-15] MEDS: THIAMINE HCL 100 MG TABLET (FP) PO SCH (21:36)
[2018-09-15] MEDS: ATORVASTATIN CA 40 MG TABLET (FP) PO SCH (21:36)
[2018-09-15] MEDS: MELATONIN 5 MG TABLETS PO PRN (21:43)
[2018-09-15] MEDS: DOXEPIN HCL 10 MG CAPSULE PO SCH (21:43)
[2018-09-16] MEDS: GLIPIZIDE PO SCH ×2 (06:21→16:58)
[2018-09-16] MEDS: metFORMIN HCL 500 MG TABLET (FP) PO SCH ×2 (06:22→16:57)
[2018-09-16] MEDS: INSULIN SLIDING SCALE (NOVOLOG) 1 VIAL SQ SCH ×4 (06:22→21:32)
[2018-09-16] MEDS: ASPIRIN 81 MG CHEWABLE TABLETS PO SCH (10:36)
[2018-09-16] MEDS: ESCITALOPRAM OXALATE 10 MG TABLET (FP) PO SCH (10:36)
[2018-09-16] MEDS: PATIENT'S OWN MEDICATION (NON-FORMULARY) (Canagliflozin [Invokana] 100 MG) PO SCH (10:36)
[2018-09-16] MEDS: PRENATAL VITAMINS W/ FOLIC ACID TABLET (FP) PO SCH (10:36)
[2018-09-16] MEDS: METOPROLOL TARTRATE 25 MG TABLET (FP) PO SCH ×2 (10:36→21:30)
[2018-09-16] MEDS: ENOXAPARIN NA (PORCINE) 40 MG/0.4 ML DISP.SYRIN SQ SCH (10:37)
[2018-09-16] MEDS: NICOTINE 21 MG/24 HOURS TOPICAL PATCH TD SCH (10:38)
[2018-09-16] MEDS: NICOTINE POLACRILEX 4 MG GUM BUC PRN ×3 (10:39→21:32)
[2018-09-16] MEDS: ATORVASTATIN CA 40 MG TABLET (FP) PO SCH (21:30)
[2018-09-16] MEDS: THIAMINE HCL 100 MG TABLET (FP) PO SCH (21:30)
[2018-09-16] MEDS: DOXEPIN HCL 10 MG CAPSULE PO SCH (21:31)
[2018-09-16] MEDS: MELATONIN 5 MG TABLETS PO PRN (21:31)
[2018-09-17] MEDS: metFORMIN HCL 500 MG TABLET (FP) PO SCH ×2 (06:30→16:41)
[2018-09-17] MEDS: GLIPIZIDE PO SCH ×2 (06:31→16:41)
[2018-09-17] MEDS: INSULIN SLIDING SCALE (NOVOLOG) 1 VIAL SQ SCH ×4 (06:54→21:40)
[2018-09-17] MEDS: ASPIRIN 81 MG CHEWABLE TABLETS PO SCH (09:50)
[2018-09-17] MEDS: ESCITALOPRAM OXALATE 10 MG TABLET (FP) PO SCH (09:50)
[2018-09-17] MEDS: PATIENT'S OWN MEDICATION (NON-FORMULARY) (Canagliflozin [Invokana] 100 MG) PO SCH (09:50)
[2018-09-17] MEDS: PRENATAL VITAMINS W/ FOLIC ACID TABLET (FP) PO SCH (09:50)
[2018-09-17] MEDS: METOPROLOL TARTRATE 25 MG TABLET (FP) PO SCH ×3 (09:50→21:41)
[2018-09-17] MEDS: ENOXAPARIN NA (PORCINE) 40 MG/0.4 ML DISP.SYRIN SQ SCH (09:50)
[2018-09-17] MEDS: NICOTINE 21 MG/24 HOURS TOPICAL PATCH TD SCH (09:51)
[2018-09-17] MEDS: NICOTINE POLACRILEX 4 MG GUM BUC PRN ×2 (09:52→21:43)
[2018-09-17] MEDS: THIAMINE HCL 100 MG TABLET (FP) PO SCH (21:41)
[2018-09-17] MEDS: ATORVASTATIN CA 40 MG TABLET (FP) PO SCH (21:41)
[2018-09-17] MEDS: DOXEPIN HCL 10 MG CAPSULE PO SCH (21:41)
[2018-09-17] MEDS: MELATONIN 5 MG TABLETS PO PRN (21:42)
[2018-09-18] MEDS: GLIPIZIDE PO SCH ×2 (06:28→16:47)
[2018-09-18] MEDS: metFORMIN HCL 500 MG TABLET (FP) PO SCH ×2 (06:29→16:47)
[2018-09-18] MEDS: INSULIN SLIDING SCALE (NOVOLOG) 1 VIAL SQ SCH ×4 (06:49→21:47)
[2018-09-18] MEDS: PRENATAL VITAMINS W/ FOLIC ACID TABLET (FP) PO SCH (10:01)
[2018-09-18] MEDS: METOPROLOL TARTRATE 25 MG TABLET (FP) PO SCH ×2 (10:01→21:48)
[2018-09-18] MEDS: ESCITALOPRAM OXALATE 10 MG TABLET (FP) PO SCH (10:01)
[2018-09-18] MEDS: ENOXAPARIN NA (PORCINE) 40 MG/0.4 ML DISP.SYRIN SQ SCH (10:01)
[2018-09-18] MEDS: PATIENT'S OWN MEDICATION (NON-FORMULARY) (Canagliflozin [Invokana] 100 MG) PO SCH (10:01)
[2018-09-18] MEDS: ASPIRIN 81 MG CHEWABLE TABLETS PO SCH (10:01)
[2018-09-18] MEDS: NICOTINE 21 MG/24 HOURS TOPICAL PATCH TD SCH (10:02)
[2018-09-18] MEDS: NICOTINE POLACRILEX 4 MG GUM BUC PRN (10:04)
[2018-09-18] MEDS: THIAMINE HCL 100 MG TABLET (FP) PO SCH (21:48)
[2018-09-18] MEDS: MELATONIN 5 MG TABLETS PO PRN (21:48)
[2018-09-18] MEDS: DOXEPIN HCL 10 MG CAPSULE PO SCH (21:48)
[2018-09-18] MEDS: ATORVASTATIN CA 40 MG TABLET (FP) PO SCH (21:48)
[2018-09-19] MEDS: GLIPIZIDE PO SCH ×2 (06:24→16:45)
[2018-09-19] MEDS: metFORMIN HCL 500 MG TABLET (FP) PO SCH ×2 (06:24→16:45)
[2018-09-19] MEDS: INSULIN SLIDING SCALE (NOVOLOG) 1 VIAL SQ SCH ×4 (06:48→21:38)
[2018-09-19] MEDS: ENOXAPARIN NA (PORCINE) 40 MG/0.4 ML DISP.SYRIN SQ SCH (11:15)
[2018-09-19] MEDS: ASPIRIN 81 MG CHEWABLE TABLETS PO SCH (11:17)
[2018-09-19] MEDS: ESCITALOPRAM OXALATE 10 MG TABLET (FP) PO SCH (11:17)
[2018-09-19] MEDS: METOPROLOL TARTRATE 25 MG TABLET (FP) PO SCH ×2 (11:17→21:36)
[2018-09-19] MEDS: NICOTINE 21 MG/24 HOURS TOPICAL PATCH TD SCH (11:17)
[2018-09-19] MEDS: PRENATAL VITAMINS W/ FOLIC ACID TABLET (FP) PO SCH (11:17)
[2018-09-19] MEDS: PATIENT'S OWN MEDICATION (NON-FORMULARY) (Canagliflozin [Invokana] 100 MG) PO SCH (11:18)
[2018-09-19] MEDS: NICOTINE POLACRILEX 4 MG GUM BUC PRN ×3 (11:20→21:38)
[2018-09-19] MEDS: ATORVASTATIN CA 40 MG TABLET (FP) PO SCH (21:36)
[2018-09-19] MEDS: THIAMINE HCL 100 MG TABLET (FP) PO SCH (21:36)
[2018-09-19] MEDS: DOXEPIN HCL 10 MG CAPSULE PO SCH (21:38)
[2018-09-19] MEDS: MELATONIN 5 MG TABLETS PO PRN (21:38)
[2018-09-20] MEDS: metFORMIN HCL 500 MG TABLET (FP) PO SCH ×2 (06:19→16:52)
[2018-09-20] MEDS: GLIPIZIDE PO SCH ×2 (06:19→16:53)
[2018-09-20] MEDS: INSULIN SLIDING SCALE (NOVOLOG) 1 VIAL SQ SCH ×4 (06:38→21:42)
[2018-09-20] MEDS: PATIENT'S OWN MEDICATION (NON-FORMULARY) (Canagliflozin [Invokana] 100 MG) PO SCH (10:32)
[2018-09-20] MEDS: NICOTINE 21 MG/24 HOURS TOPICAL PATCH TD SCH (10:32)
[2018-09-20] MEDS: PRENATAL VITAMINS W/ FOLIC ACID TABLET (FP) PO SCH (10:32)
[2018-09-20] MEDS: ASPIRIN 81 MG CHEWABLE TABLETS PO SCH (10:32)
[2018-09-20] MEDS: ENOXAPARIN NA (PORCINE) 40 MG/0.4 ML DISP.SYRIN SQ SCH (10:32)
[2018-09-20] MEDS: METOPROLOL TARTRATE 25 MG TABLET (FP) PO SCH ×2 (10:32→21:43)
[2018-09-20] MEDS: ESCITALOPRAM OXALATE 10 MG TABLET (FP) PO SCH (10:32)
[2018-09-20] MEDS: NICOTINE POLACRILEX 4 MG GUM BUC PRN ×2 (10:33→17:58)
[2018-09-20] MEDS: THIAMINE HCL 100 MG TABLET (FP) PO SCH (21:42)
[2018-09-20] MEDS: ATORVASTATIN CA 40 MG TABLET (FP) PO SCH (21:43)
[2018-09-20] MEDS: MELATONIN 5 MG TABLETS PO PRN (21:45)
[2018-09-20] MEDS: DOXEPIN HCL 10 MG CAPSULE PO SCH (21:45)
[2018-09-21] MEDS: metFORMIN HCL 500 MG TABLET (FP) PO SCH ×2 (06:30→16:47)
[2018-09-21] MEDS: GLIPIZIDE PO SCH ×2 (07:01→16:48)
[2018-09-21] MEDS: INSULIN SLIDING SCALE (NOVOLOG) 1 VIAL SQ SCH ×4 (07:01→21:25)
[2018-09-21] MEDS: ENOXAPARIN NA (PORCINE) 40 MG/0.4 ML DISP.SYRIN SQ SCH (10:24)
[2018-09-21] MEDS: ESCITALOPRAM OXALATE 10 MG TABLET (FP) PO SCH (10:24)
[2018-09-21] MEDS: PATIENT'S OWN MEDICATION (NON-FORMULARY) (Canagliflozin [Invokana] 100 MG) PO SCH (10:24)
[2018-09-21] MEDS: ASPIRIN 81 MG CHEWABLE TABLETS PO SCH (10:24)
[2018-09-21] MEDS: PRENATAL VITAMINS W/ FOLIC ACID TABLET (FP) PO SCH (10:24)
[2018-09-21] MEDS: METOPROLOL TARTRATE 25 MG TABLET (FP) PO SCH ×2 (10:24→21:24)
[2018-09-21] MEDS: NICOTINE 21 MG/24 HOURS TOPICAL PATCH TD SCH (10:25)
[2018-09-21] MEDS: DOXEPIN HCL 10 MG CAPSULE PO SCH (21:24)
[2018-09-21] MEDS: MELATONIN 5 MG TABLETS PO PRN (21:24)
[2018-09-21] MEDS: THIAMINE HCL 100 MG TABLET (FP) PO SCH (21:24)
[2018-09-21] MEDS: ATORVASTATIN CA 40 MG TABLET (FP) PO SCH (21:24)
[2018-09-21] MEDS: NICOTINE POLACRILEX 4 MG GUM BUC PRN (21:25)
[2018-09-22] MEDS: GLIPIZIDE PO SCH ×2 (06:24→16:34)
[2018-09-22] MEDS: metFORMIN HCL 500 MG TABLET (FP) PO SCH ×2 (06:24→16:34)
[2018-09-22] MEDS: INSULIN SLIDING SCALE (NOVOLOG) 1 VIAL SQ SCH ×3 (06:25→16:35)
[2018-09-22] MEDS: PATIENT'S OWN MEDICATION (NON-FORMULARY) (Canagliflozin [Invokana] 100 MG) PO SCH (10:09)
[2018-09-22] MEDS: ESCITALOPRAM OXALATE 10 MG TABLET (FP) PO SCH (10:09)
[2018-09-22] MEDS: ENOXAPARIN NA (PORCINE) 40 MG/0.4 ML DISP.SYRIN SQ SCH (10:09)
[2018-09-22] MEDS: METOPROLOL TARTRATE 25 MG TABLET (FP) PO SCH ×2 (10:09→21:38)
[2018-09-22] MEDS: PRENATAL VITAMINS W/ FOLIC ACID TABLET (FP) PO SCH (10:09)
[2018-09-22] MEDS: ASPIRIN 81 MG CHEWABLE TABLETS PO SCH (10:09)
[2018-09-22] MEDS: NICOTINE 21 MG/24 HOURS TOPICAL PATCH TD SCH (10:10)
[2018-09-22] MEDS: NICOTINE POLACRILEX 4 MG GUM BUC PRN ×2 (10:12→21:40)
--- NOTE | 2018-09-22 14:00 | PN ---
[facility] Progress Note Note: Laboratory 09/15/18 09/15/18 09/16/18 16:25 21:35 06:21 POC Glucometer 107 UNITS UNITS 165 UNITS UNITS 114 UNITS UNITS (80-120) (80-120) (80-120) 09/16/18 09/16/18 09/16/18 12:05 16:55 21:29 POC Glucometer 168 UNITS UNITS 121 UNITS UNITS 162 UNITS UNITS (80-120) (80-120) (80-120) 09/17/18 09/17/18 09/17/18 06:29 11:24 16:36 POC Glucometer 90 UNITS UNITS 170 UNITS UNITS 173 UNITS UNITS (80-120) (80-120) (80-120) 09/17/18 09/18/18 09/18/18 21:39 06:27 12:02 POC Glucometer 103 UNITS UNITS 105 UNITS UNITS 164 UNITS UNITS (80-120) (80-120) (80-120) 09/18/18 09/18/18 09/19/18 16:24 21:46 06:22 POC Glucometer 93 UNITS UNITS 104 UNITS UNITS 107 UNITS UNITS (80-120) (80-120) (80-120) 09/19/18 09/19/18 09/19/18 11:22 16:44 21:35 POC Glucometer 127 UNITS UNITS 102 UNITS UNITS 88 UNITS UNITS (80-120) (80-120) (80-120) 09/20/18 09/20/18 09/20/18 06:18 12:01 16:52 POC Glucometer 82 UNITS UNITS 116 UNITS UNITS 82 UNITS UNITS (80-120) (80-120) (80-120) 09/20/18 09/21/18 09/21/18 21:41 06:29 12:04 POC Glucometer 137 UNITS UNITS 100 UNITS UNITS 97 UNITS UNITS (80-120) (80-120) (80-120) 09/21/18 09/21/18 09/22/18 16:47 21:23 06:23 POC Glucometer 114 UNITS UNITS 144 UNITS UNITS 110 UNITS UNITS (80-120) (80-120) (80-120) 09/22/18 12:03 POC Glucometer 117 UNITS UNITS (80-120) Vital Signs (72 hours) 09/19/18 09/20/18 09/20/18 22:13 00:30 03:30 Temperature Pulse Rate 92 H Respiratory 18 18 Rate Blood Pressure 129/83 09/20/18 09/20/18 09/20/18 06:49 10:00 22:00 Temperature 98.1 F Pulse Rate 76 103 H 86 Respiratory 18 Rate Blood Pressure 103/67 116/66 119/80 09/21/18 09/21/18 09/21/18 00:30 03:30 07:02 Temperature 97.2 F L Pulse Rate 77 Respiratory 18 18 18 Rate Blood Pressure 122/76 09/21/18 09/21/18 09/22/18 10:00 21:00 00:30 Temperature Pulse Rate 92 H 83 Respiratory 18 Rate Blood Pressure 105/69 113/72 09/22/18 09/22/18 09/22/18 01:07 03:30 06:58 Temperature 98.0 F Pulse Rate 80 Respiratory 18 18 16 Rate Blood Pressure 93/75 09/22/18 10:00 Temperature Pulse Rate 93 H Respiratory Rate Blood Pressure 110/72 Blood glucose stable. Fingersticks changed to 7:30, 16:30. and before bedtime. Patient in agreement.
[2018-09-22] MEDS: THIAMINE HCL 100 MG TABLET (FP) PO SCH (21:38)
[2018-09-22] MEDS: ATORVASTATIN CA 40 MG TABLET (FP) PO SCH (21:38)
[2018-09-22] MEDS: MELATONIN 5 MG TABLETS PO PRN (21:39)
[2018-09-22] MEDS: DOXEPIN HCL 10 MG CAPSULE PO SCH (21:40)
[2018-09-23] MEDS: metFORMIN HCL 500 MG TABLET (FP) PO SCH ×2 (06:25→17:13)
[2018-09-23] MEDS: GLIPIZIDE PO SCH ×2 (06:25→17:13)
[2018-09-23] MEDS: INSULIN SLIDING SCALE (NOVOLOG) 1 VIAL SQ SCH ×3 (06:26→18:20)
[2018-09-23] MEDS: NICOTINE 21 MG/24 HOURS TOPICAL PATCH TD SCH (10:05)
[2018-09-23] MEDS: ENOXAPARIN NA (PORCINE) 40 MG/0.4 ML DISP.SYRIN SQ SCH (10:05)
[2018-09-23] MEDS: PRENATAL VITAMINS W/ FOLIC ACID TABLET (FP) PO SCH (10:06)
[2018-09-23] MEDS: ESCITALOPRAM OXALATE 10 MG TABLET (FP) PO SCH (10:06)
[2018-09-23] MEDS: PATIENT'S OWN MEDICATION (NON-FORMULARY) (Canagliflozin [Invokana] 100 MG) PO SCH (10:06)
[2018-09-23] MEDS: METOPROLOL TARTRATE 25 MG TABLET (FP) PO SCH ×2 (10:06→21:11)
[2018-09-23] MEDS: ASPIRIN 81 MG CHEWABLE TABLETS PO SCH (10:06)
[2018-09-23] MEDS: NICOTINE POLACRILEX 4 MG GUM BUC PRN (10:08)
[2018-09-23] MEDS: DOXEPIN HCL 10 MG CAPSULE PO SCH (21:11)
[2018-09-23] MEDS: ATORVASTATIN CA 40 MG TABLET (FP) PO SCH (21:11)
[2018-09-23] MEDS: THIAMINE HCL 100 MG TABLET (FP) PO SCH (21:12)
[2018-09-23] MEDS: MELATONIN 5 MG TABLETS PO PRN (21:12)
[2018-09-24] MEDS: INSULIN SLIDING SCALE (NOVOLOG) 1 VIAL SQ SCH ×3 (06:26→17:48)
[2018-09-24] MEDS: GLIPIZIDE PO SCH ×2 (06:26→16:53)
[2018-09-24] MEDS: metFORMIN HCL 500 MG TABLET (FP) PO SCH ×2 (06:26→16:53)
[2018-09-24] MEDS: ESCITALOPRAM OXALATE 10 MG TABLET (FP) PO SCH (10:19)
[2018-09-24] MEDS: METOPROLOL TARTRATE 25 MG TABLET (FP) PO SCH ×2 (10:19→21:33)
[2018-09-24] MEDS: ASPIRIN 81 MG CHEWABLE TABLETS PO SCH (10:19)
[2018-09-24] MEDS: PATIENT'S OWN MEDICATION (NON-FORMULARY) (Canagliflozin [Invokana] 100 MG) PO SCH (10:19)
[2018-09-24] MEDS: PRENATAL VITAMINS W/ FOLIC ACID TABLET (FP) PO SCH (10:19)
[2018-09-24] MEDS: ENOXAPARIN NA (PORCINE) 40 MG/0.4 ML DISP.SYRIN SQ SCH (10:20)
[2018-09-24] MEDS: NICOTINE 21 MG/24 HOURS TOPICAL PATCH TD SCH (10:21)
[2018-09-24] MEDS: THIAMINE HCL 100 MG TABLET (FP) PO SCH (21:33)
[2018-09-24] MEDS: ATORVASTATIN CA 40 MG TABLET (FP) PO SCH (21:33)
[2018-09-24] MEDS: DOXEPIN HCL 10 MG CAPSULE PO SCH (21:34)
[2018-09-24] MEDS: MELATONIN 5 MG TABLETS PO PRN (21:34)
[2018-09-24] MEDS: NICOTINE POLACRILEX 4 MG GUM BUC PRN (21:35)
[2018-09-25] MEDS: metFORMIN HCL 500 MG TABLET (FP) PO SCH ×2 (06:24→16:37)
[2018-09-25] MEDS: GLIPIZIDE PO SCH ×2 (06:24→16:37)
[2018-09-25] MEDS: INSULIN SLIDING SCALE (NOVOLOG) 1 VIAL SQ SCH ×3 (06:24→16:38)
[2018-09-25] MEDS: METOPROLOL TARTRATE 25 MG TABLET (FP) PO SCH ×2 (10:27→21:24)
[2018-09-25] MEDS: PRENATAL VITAMINS W/ FOLIC ACID TABLET (FP) PO SCH (10:27)
[2018-09-25] MEDS: ASPIRIN 81 MG CHEWABLE TABLETS PO SCH (10:27)
[2018-09-25] MEDS: ESCITALOPRAM OXALATE 10 MG TABLET (FP) PO SCH (10:27)
[2018-09-25] MEDS: NICOTINE 21 MG/24 HOURS TOPICAL PATCH TD SCH (10:28)
[2018-09-25] MEDS: ENOXAPARIN NA (PORCINE) 40 MG/0.4 ML DISP.SYRIN SQ SCH (10:28)
[2018-09-25] MEDS: PATIENT'S OWN MEDICATION (NON-FORMULARY) (Canagliflozin [Invokana] 100 MG) PO SCH (10:28)
[2018-09-25] MEDS: ATORVASTATIN CA 40 MG TABLET (FP) PO SCH (21:24)
[2018-09-25] MEDS: MELATONIN 5 MG TABLETS PO PRN (21:26)
[2018-09-25] MEDS: THIAMINE HCL 100 MG TABLET (FP) PO SCH (21:26)
[2018-09-25] MEDS: DOXEPIN HCL 10 MG CAPSULE PO SCH (21:26)
[2018-09-26] MEDS: GLIPIZIDE PO SCH ×2 (07:14→16:23)
[2018-09-26] MEDS: metFORMIN HCL 500 MG TABLET (FP) PO SCH ×2 (07:15→16:22)
[2018-09-26] MEDS: INSULIN SLIDING SCALE (NOVOLOG) 1 VIAL SQ SCH ×3 (07:16→16:23)
[2018-09-26] MEDS: METOPROLOL TARTRATE 25 MG TABLET (FP) PO SCH ×2 (10:52→21:35)
[2018-09-26] MEDS: PRENATAL VITAMINS W/ FOLIC ACID TABLET (FP) PO SCH (10:52)
[2018-09-26] MEDS: ENOXAPARIN NA (PORCINE) 40 MG/0.4 ML DISP.SYRIN SQ SCH (10:52)
[2018-09-26] MEDS: ESCITALOPRAM OXALATE 10 MG TABLET (FP) PO SCH (10:52)
[2018-09-26] MEDS: ASPIRIN 81 MG CHEWABLE TABLETS PO SCH (10:52)
[2018-09-26] MEDS: PATIENT'S OWN MEDICATION (NON-FORMULARY) (Canagliflozin [Invokana] 100 MG) PO SCH (10:52)
[2018-09-26] MEDS: NICOTINE 21 MG/24 HOURS TOPICAL PATCH TD SCH (10:54)
[2018-09-26] MEDS ORDERED: INSULIN (NOVOLOG) ASPART 100 UNITS/ML 10ML VIAL ONE (19:26)
[2018-09-26] MEDS: ATORVASTATIN CA 40 MG TABLET (FP) PO SCH (21:35)
[2018-09-26] MEDS: MELATONIN 5 MG TABLETS PO PRN (21:36)
[2018-09-26] MEDS: THIAMINE HCL 100 MG TABLET (FP) PO SCH (21:36)
[2018-09-26] MEDS: DOXEPIN HCL 10 MG CAPSULE PO SCH (21:36)
[2018-09-26] MEDS: NICOTINE POLACRILEX 4 MG GUM BUC PRN (21:38)
[2018-09-27] MEDS: metFORMIN HCL 500 MG TABLET (FP) PO SCH ×2 (06:20→16:41)
[2018-09-27] MEDS: GLIPIZIDE PO SCH ×2 (06:21→16:41)
[2018-09-27] MEDS: INSULIN SLIDING SCALE (NOVOLOG) 1 VIAL SQ SCH ×3 (07:04→16:41)
[2018-09-27] MEDS: ENOXAPARIN NA (PORCINE) 40 MG/0.4 ML DISP.SYRIN SQ SCH (10:40)
[2018-09-27] MEDS: PRENATAL VITAMINS W/ FOLIC ACID TABLET (FP) PO SCH (10:40)
[2018-09-27] MEDS: ASPIRIN 81 MG CHEWABLE TABLETS PO SCH (10:40)
[2018-09-27] MEDS: PATIENT'S OWN MEDICATION (NON-FORMULARY) (Canagliflozin [Invokana] 100 MG) PO SCH (10:40)
[2018-09-27] MEDS: METOPROLOL TARTRATE 25 MG TABLET (FP) PO SCH ×2 (10:40→21:33)
[2018-09-27] MEDS: ESCITALOPRAM OXALATE 10 MG TABLET (FP) PO SCH (10:41)
[2018-09-27] MEDS: NICOTINE POLACRILEX 4 MG GUM BUC PRN (10:41)
[2018-09-27] MEDS: NICOTINE 21 MG/24 HOURS TOPICAL PATCH TD SCH (10:41)
[2018-09-27] MEDS: THIAMINE HCL 100 MG TABLET (FP) PO SCH (21:33)
[2018-09-27] MEDS: ATORVASTATIN CA 40 MG TABLET (FP) PO SCH (21:33)
[2018-09-27] MEDS: MELATONIN 5 MG TABLETS PO PRN (21:33)
[2018-09-27] MEDS: DOXEPIN HCL 10 MG CAPSULE PO SCH (21:33)
[2018-09-28] MEDS: metFORMIN HCL 500 MG TABLET (FP) PO SCH ×2 (06:06→16:25)
[2018-09-28] MEDS: GLIPIZIDE PO SCH ×2 (06:07→16:25)
[2018-09-28] MEDS: INSULIN SLIDING SCALE (NOVOLOG) 1 VIAL SQ SCH ×3 (06:50→16:26)
[2018-09-28] MEDS: PATIENT'S OWN MEDICATION (NON-FORMULARY) (Canagliflozin [Invokana] 100 MG) PO SCH (10:23)
[2018-09-28] MEDS: ENOXAPARIN NA (PORCINE) 40 MG/0.4 ML DISP.SYRIN SQ SCH (10:24)
[2018-09-28] MEDS: METOPROLOL TARTRATE 25 MG TABLET (FP) PO SCH ×2 (10:24→21:27)
[2018-09-28] MEDS: ESCITALOPRAM OXALATE 10 MG TABLET (FP) PO SCH (10:25)
[2018-09-28] MEDS: ASPIRIN 81 MG CHEWABLE TABLETS PO SCH (10:25)
[2018-09-28] MEDS: PRENATAL VITAMINS W/ FOLIC ACID TABLET (FP) PO SCH (10:25)
[2018-09-28] MEDS: NICOTINE 21 MG/24 HOURS TOPICAL PATCH TD SCH (10:25)
[2018-09-28] MEDS: NICOTINE POLACRILEX 4 MG GUM BUC PRN ×2 (10:26→21:29)
[2018-09-28] MEDS: ATORVASTATIN CA 40 MG TABLET (FP) PO SCH (21:27)
[2018-09-28] MEDS: THIAMINE HCL 100 MG TABLET (FP) PO SCH (21:27)
[2018-09-28] MEDS: DOXEPIN HCL 10 MG CAPSULE PO SCH (21:27)
[2018-09-28] MEDS: MELATONIN 5 MG TABLETS PO PRN (21:28)
[2018-09-29] MEDS: metFORMIN HCL 500 MG TABLET (FP) PO SCH ×2 (06:00→16:30)
[2018-09-29] MEDS: INSULIN SLIDING SCALE (NOVOLOG) 1 VIAL SQ SCH ×3 (06:02→16:31)
[2018-09-29] MEDS: GLIPIZIDE PO SCH ×2 (07:57→16:31)
[2018-09-29] MEDS: ENOXAPARIN NA (PORCINE) 40 MG/0.4 ML DISP.SYRIN SQ SCH (09:58)
[2018-09-29] MEDS: ASPIRIN 81 MG CHEWABLE TABLETS PO SCH (09:59)
[2018-09-29] MEDS: METOPROLOL TARTRATE 25 MG TABLET (FP) PO SCH ×2 (09:59→21:36)
[2018-09-29] MEDS: PATIENT'S OWN MEDICATION (NON-FORMULARY) (Canagliflozin [Invokana] 100 MG) PO SCH (09:59)
[2018-09-29] MEDS: PRENATAL VITAMINS W/ FOLIC ACID TABLET (FP) PO SCH (09:59)
[2018-09-29] MEDS: NICOTINE 21 MG/24 HOURS TOPICAL PATCH TD SCH (09:59)
[2018-09-29] MEDS: ESCITALOPRAM OXALATE 10 MG TABLET (FP) PO SCH (09:59)
[2018-09-29] MEDS: NICOTINE POLACRILEX 4 MG GUM BUC PRN ×2 (10:00→21:36)
[2018-09-29] MEDS: THIAMINE HCL 100 MG TABLET (FP) PO SCH (21:36)
[2018-09-29] MEDS: ATORVASTATIN CA 40 MG TABLET (FP) PO SCH (21:36)
[2018-09-29] MEDS: DOXEPIN HCL 10 MG CAPSULE PO SCH (23:05)
[2018-09-29] MEDS: MELATONIN 5 MG TABLETS PO PRN (23:05)
[2018-09-30] MEDS: metFORMIN HCL 500 MG TABLET (FP) PO SCH ×2 (06:12→16:47)
[2018-09-30] MEDS: INSULIN SLIDING SCALE (NOVOLOG) 1 VIAL SQ SCH ×3 (06:13→16:50)
[2018-09-30] MEDS: GLIPIZIDE PO SCH ×2 (06:13→16:49)
[2018-09-30] MEDS: ASPIRIN 81 MG CHEWABLE TABLETS PO SCH (10:48)
[2018-09-30] MEDS: ESCITALOPRAM OXALATE 10 MG TABLET (FP) PO SCH (10:48)
[2018-09-30] MEDS: PRENATAL VITAMINS W/ FOLIC ACID TABLET (FP) PO SCH (10:48)
[2018-09-30] MEDS: ENOXAPARIN NA (PORCINE) 40 MG/0.4 ML DISP.SYRIN SQ SCH (10:49)
[2018-09-30] MEDS: METOPROLOL TARTRATE 25 MG TABLET (FP) PO SCH ×2 (10:49→21:38)
[2018-09-30] MEDS: PATIENT'S OWN MEDICATION (NON-FORMULARY) (Canagliflozin [Invokana] 100 MG) PO SCH (10:49)
[2018-09-30] MEDS: NICOTINE 21 MG/24 HOURS TOPICAL PATCH TD SCH (10:51)
[2018-09-30] MEDS: THIAMINE HCL 100 MG TABLET (FP) PO SCH (21:38)
[2018-09-30] MEDS: ATORVASTATIN CA 40 MG TABLET (FP) PO SCH (21:38)
[2018-09-30] MEDS: NICOTINE POLACRILEX 4 MG GUM BUC PRN (21:39)
[2018-09-30] MEDS: MELATONIN 5 MG TABLETS PO PRN (21:39)
[2018-09-30] MEDS: DOXEPIN HCL 10 MG CAPSULE PO SCH (21:39)
[2018-10-01] MEDS: metFORMIN HCL 500 MG TABLET (FP) PO SCH ×2 (06:02→16:26)
[2018-10-01] MEDS: GLIPIZIDE PO SCH ×2 (06:02→16:26)
[2018-10-01] MEDS: INSULIN SLIDING SCALE (NOVOLOG) 1 VIAL SQ SCH ×3 (06:49→16:26)
[2018-10-01] MEDS: ENOXAPARIN NA (PORCINE) 40 MG/0.4 ML DISP.SYRIN SQ SCH (10:08)
[2018-10-01] MEDS: NICOTINE 21 MG/24 HOURS TOPICAL PATCH TD SCH (10:09)
[2018-10-01] MEDS: METOPROLOL TARTRATE 25 MG TABLET (FP) PO SCH ×2 (10:09→21:24)
[2018-10-01] MEDS: PRENATAL VITAMINS W/ FOLIC ACID TABLET (FP) PO SCH (10:09)
[2018-10-01] MEDS: ESCITALOPRAM OXALATE 10 MG TABLET (FP) PO SCH (10:10)
[2018-10-01] MEDS: NICOTINE POLACRILEX 4 MG GUM BUC PRN ×2 (10:10→16:26)
[2018-10-01] MEDS: PATIENT'S OWN MEDICATION (NON-FORMULARY) (Canagliflozin [Invokana] 100 MG) PO SCH (10:10)
[2018-10-01] MEDS: ASPIRIN 81 MG CHEWABLE TABLETS PO SCH (10:10)
[2018-10-01] MEDS: ATORVASTATIN CA 40 MG TABLET (FP) PO SCH (21:22)
[2018-10-01] MEDS: THIAMINE HCL 100 MG TABLET (FP) PO SCH (21:22)
[2018-10-01] MEDS: DOXEPIN HCL 10 MG CAPSULE PO SCH (21:24)
[2018-10-02] MEDS: GLIPIZIDE PO SCH ×2 (06:05→16:42)
[2018-10-02] MEDS: metFORMIN HCL 500 MG TABLET (FP) PO SCH ×2 (06:05→16:42)
[2018-10-02] MEDS: PRENATAL VITAMINS W/ FOLIC ACID TABLET (FP) PO SCH (10:33)
[2018-10-02] MEDS: METOPROLOL TARTRATE 25 MG TABLET (FP) PO SCH ×2 (10:33→21:27)
[2018-10-02] MEDS: ESCITALOPRAM OXALATE 10 MG TABLET (FP) PO SCH (10:33)
[2018-10-02] MEDS: NICOTINE 21 MG/24 HOURS TOPICAL PATCH TD SCH (10:33)
[2018-10-02] MEDS: ASPIRIN 81 MG CHEWABLE TABLETS PO SCH (10:33)
[2018-10-02] MEDS: ENOXAPARIN NA (PORCINE) 40 MG/0.4 ML DISP.SYRIN SQ SCH (10:34)
[2018-10-02] MEDS: PATIENT'S OWN MEDICATION (NON-FORMULARY) (Canagliflozin [Invokana] 100 MG) PO SCH (10:35)
[2018-10-02] MEDS: INSULIN SLIDING SCALE (NOVOLOG) 1 VIAL SQ SCH ×3 (11:55→16:43)
[2018-10-02] MEDS: ATORVASTATIN CA 40 MG TABLET (FP) PO SCH (21:26)
[2018-10-02] MEDS: THIAMINE HCL 100 MG TABLET (FP) PO SCH (21:26)
[2018-10-02] MEDS: MELATONIN 5 MG TABLETS PO PRN (21:27)
[2018-10-02] MEDS: DOXEPIN HCL 10 MG CAPSULE PO SCH (21:31)
[2018-10-03] MEDS: GLIPIZIDE PO SCH ×2 (06:10→16:55)
[2018-10-03] MEDS: metFORMIN HCL 500 MG TABLET (FP) PO SCH ×2 (06:10→16:55)
[2018-10-03] MEDS: INSULIN SLIDING SCALE (NOVOLOG) 1 VIAL SQ SCH ×3 (06:49→16:56)
[2018-10-03 07:19] VITALS: TEMP 97.4
[2018-10-03] MEDS: ASPIRIN 81 MG CHEWABLE TABLETS PO SCH (10:16)
[2018-10-03] MEDS: PRENATAL VITAMINS W/ FOLIC ACID TABLET (FP) PO SCH (10:17)
[2018-10-03] MEDS: PATIENT'S OWN MEDICATION (NON-FORMULARY) (Canagliflozin [Invokana] 100 MG) PO SCH (10:17)
[2018-10-03] MEDS: ESCITALOPRAM OXALATE 10 MG TABLET (FP) PO SCH (10:17)
[2018-10-03] MEDS: METOPROLOL TARTRATE 25 MG TABLET (FP) PO SCH ×2 (10:19→21:50)
[2018-10-03] MEDS: NICOTINE 21 MG/24 HOURS TOPICAL PATCH TD SCH (10:19)
[2018-10-03] MEDS: ENOXAPARIN NA (PORCINE) 40 MG/0.4 ML DISP.SYRIN SQ SCH (10:19)
[2018-10-03] MEDS ORDERED: PT OWN MED DRAWER 7, Y5N ONE (10:27)
--- NOTE | 2018-10-03 11:27 | PN ---
[facility] Progress Note Note: Patient is scheduled for discharge tomorrow. Scripts for 30 days supply of medications(Lexapro, Doxepin) will be electronically transmitted to [facility]
--- NOTE | 2018-10-03 16:12 | PN ---
S Progress Note Note: PT SCHEDULED TO DISCHARGE ON 10/04/18. RX FOR MEDICATIONS FOR 30 DAYS SUPPLY ELECTRONICALLY SENT TO [facility] FOR PICKUP FOR REFERRAL TO AFTERCARE. Vital Signs - 24 hr 10/02/18 10/03/18 10/03/18 21:15 00:30 03:30 Temperature Pulse Rate 90 Respiratory 18 18 Rate Blood Pressure 100/58 L 10/03/18 10/03/18 07:18 10:00 Temperature 97.4 F L Pulse Rate 80 97 H Respiratory 17 Rate Blood Pressure 116/76 113/79
[2018-10-03] MEDS: ATORVASTATIN CA 40 MG TABLET (FP) PO SCH (21:50)
[2018-10-03] MEDS: NICOTINE POLACRILEX 4 MG GUM BUC PRN (21:51)
[2018-10-03] MEDS: DOXEPIN HCL 10 MG CAPSULE PO SCH (21:51)
[2018-10-03] MEDS: MELATONIN 5 MG TABLETS PO PRN (21:51)
[2018-10-03] MEDS: THIAMINE HCL 100 MG TABLET (FP) PO SCH (21:51)
[2018-10-04 07:00] VITALS: BP 114/77; PULSE 81
[2018-10-04] MEDS: GLIPIZIDE PO SCH (07:34)
[2018-10-04] MEDS: metFORMIN HCL 500 MG TABLET (FP) PO SCH (07:34)
[2018-10-04] MEDS: INSULIN SLIDING SCALE (NOVOLOG) 1 VIAL SQ SCH (07:34)
[2018-10-04] MEDS: PRENATAL VITAMINS W/ FOLIC ACID TABLET (FP) PO SCH (09:55)
[2018-10-04] MEDS: PATIENT'S OWN MEDICATION (NON-FORMULARY) (Canagliflozin [Invokana] 100 MG) PO SCH (09:55)
[2018-10-04] MEDS: METOPROLOL TARTRATE 25 MG TABLET (FP) PO SCH (09:55)
[2018-10-04] MEDS: ASPIRIN 81 MG CHEWABLE TABLETS PO SCH (09:55)
[2018-10-04] MEDS: ESCITALOPRAM OXALATE 10 MG TABLET (FP) PO SCH (09:55)
--- NOTE | 2018-10-04 09:55 | PN ---
[facility] Progress Note Note: PT COMPLETED REHAB AND DISCHARGED TODAY. PT HAS BEEN REFERRED TO [facility] ON [address], [place]. PT REPORTS HE HAS PMD DR. NICOLE(FORGOT LAST NAME) AT [place], [place]. 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 ALERT O X 3. DENIES S/H/I. Home Medications Medication Instructions Recorded Omeprazole [Prilosec (RX)] 40 mg PO BID 10/15/13 Enoxaparin [Lovenox -] 40 mg SQ DAILY 09/05/18 Canagliflozin [Invokana] 100 mg PO DAILY 09/07/18 Magnesium Oxide [Mag-Ox -] 400 mg PO DAILY 09/08/18 Naltrexone HCl [Revia -] 50 mg PO DAILY 09/08/18 Triamterene/Hydrochlorothiazid 37.5 mg PO DAILY 09/08/18 [Triamterene-Hctz 37.5-25 mg Tb] Aspirin [ASA -] 81 mg PO DAILY #30 tab.chew 10/03/18 Atorvastatin Ca [Lipitor] 40 mg PO HS #30 tablet 10/03/18 Doxepin HCl [Sinequan -] 10 mg PO HS #30 capsule 10/03/18 Escitalopram Oxalate [Lexapro -] 10 mg PO DAILY #30 tablet 10/03/18 Glipizide [Glucotrol -] 10 mg PO BIDAC #30 tablet 10/03/18 Metformin HCl [Glucophage] 1,000 mg PO BID #60 tablet 10/03/18 Metoprolol Tartrate [Lopressor -] 25 mg PO BID #60 tablet 10/03/18 Pantoprazole Sodium [Protonix -] 40 mg PO DAILY #30 tablet.ec 10/03/18 Vital Signs - 24 hr 10/03/18 10/04/18 10/04/18 10:00 00:30 03:30 Temperature Pulse Rate 97 H Respiratory 18 18 Rate Blood Pressure 113/79 10/04/18 06:57 Temperature 97.4 F L Pulse Rate 81 Respiratory 18 Rate Blood Pressure 114/77 Laboratory Tests 09/06/18 09/06/18 09/07/18 17:00 21:45 06:21 POC Glucometer 303 210 189 09/07/18 09/07/18 09/07/18 12:04 16:46 21:35 POC Glucometer 359 250 325 09/08/18 09/08/18 09/08/18 06:35 11:30 16:33 POC Glucometer 285 223 227 09/08/18 09/09/18 09/09/18 21:35 06:51 11:59 POC Glucometer 257 158 211 09/09/18 09/09/18 09/10/18 17:00 21:35 06:43 POC Glucometer 170 236 157 09/10/18 09/10/18 09/10/18 12:04 16:42 21:38 POC Glucometer 260 193 151 09/11/18 09/11/18 09/11/18 06:28 11:57 17:00 POC Glucometer 158 217 109 09/11/18 09/12/18 09/12/18 21:38 06:16 11:55 POC Glucometer 158 116 132 09/12/18 09/12/18 09/13/18 16:21 20:40 06:28 POC Glucometer 137 136 108 09/13/18 09/13/18 09/13/18 11:47 16:47 21:34 POC Glucometer 121 158 164 09/14/18 09/14/18 09/14/18 06:30 11:51 16:31 POC Glucometer 127 171 127 09/14/18 09/15/18 09/15/18 20:38 06:19 12:02 POC Glucometer 164 95 106 09/15/18 09/15/18 09/16/18 16:25 21:35 06:21 POC Glucometer 107 165 114 09/16/18 09/16/18 09/16/18 12:05 16:55 21:29 POC Glucometer 168 121 162 09/17/18 09/17/18 09/17/18 06:29 11:24 16:36 POC Glucometer 90 170 173 09/17/18 09/18/18 09/18/18 21:39 06:27 12:02 POC Glucometer 103 105 164 09/18/18 09/18/18 09/19/18 16:24 21:46 06:22 POC Glucometer 93 104 107 09/19/18 09/19/18 09/19/18 11:22 16:44 21:35 POC Glucometer 127 102 88 09/20/18 09/20/18 09/20/18 06:18 12:01 16:52 POC Glucometer 82 116 82 09/20/18 09/21/18 09/21/18 21:41 06:29 12:04 POC Glucometer 137 100 97 09/21/18 09/21/18 09/22/18 16:47 21:23 06:23 POC Glucometer 114 144 110 09/22/18 09/22/18 09/23/18 12:03 16:33 06:24 POC Glucometer 117 89 125 09/23/18 09/23/18 09/23/18 12:01 17:10 21:10 POC Glucometer 63 104 113 09/24/18 09/24/18 09/24/18 06:25 11:57 16:52 POC Glucometer 102 184 84 09/25/18 09/25/18 09/25/18 06:21 11:52 16:36 POC Glucometer 139 145 80 09/26/18 09/26/18 09/26/18 06:21 12:12 16:20 POC Glucometer 117 69 134 09/27/18 09/27/18 09/27/18 06:19 11:47 16:40 POC Glucometer 103 68 82 09/28/18 09/28/18 09/28/18 06:05 12:02 16:24 POC Glucometer 88 91 95 09/29/18 09/29/18 09/29/18 05:59 11:52 16:30 POC Glucometer 135 100 85 09/30/18 09/30/18 09/30/18 06:11 12:15 16:47 POC Glucometer 106 73 125 10/01/18 10/01/18 10/01/18 06:00 11:35 16:25 POC Glucometer 103 191 82 10/02/18 10/02/18 10/02/18 06:04 12:02 16:42 POC Glucometer 95 100 112 10/03/18 10/03/18 10/03/18 06:09 10:57 16:54 POC Glucometer 99 122 123 10/04/18 06:10 POC Glucometer 96 NAD MEDICALLY STABLE PLAN:D/C PT TODAY FOLLOW UP WITH AFTERCARE RECOMMENDED. FOLLOW UP WITH [facility] FOR MEDICAL MANAGEMENT IN 1-2 WEEKS AFTER DISCHARGE.
[2018-10-04] MEDS: NICOTINE POLACRILEX 4 MG GUM BUC PRN (09:56)
[2018-10-04] MEDS: NICOTINE 21 MG/24 HOURS TOPICAL PATCH TD SCH (09:59)
== END 2018-10-04 10:25 | disposition home or self-care (01) | DRG 772 ==
LOC: YASAS 13:56 → Y5N 13:57
PROVIDERS: ADMIT Neuromusculoskeletal Medicine & OMM; ATTEND Neuromusculoskeletal Medicine & OMM
PROC: HZ42ZZZ Group Counseling for Substance Abuse Treatment, Cognitive-Behavioral (ICD-10-PCS; principal; 2018-09-06)
DX: F10.20 Alcohol dependence, uncomplicated (principal); F10.24 Alcohol dependence with alcohol-induced mood disorder; F10.282 Alcohol dependence with alcohol-induced sleep disorder; F17.210 Nicotine dependence, cigarettes, uncomplicated; F32.9 Major depressive disorder, single episode, unspecified; I10 Essential (primary) hypertension; E78.5 Hyperlipidemia, unspecified; K21.9 Gastro-esophageal reflux disease without esophagitis; E11.9 Type 2 diabetes mellitus without complications; K76.0 Fatty (change of) liver, not elsewhere classified; Z87.19 Personal history of other diseases of the digestive system
CPT/HCPCS: 82962

== ENCOUNTER 2019-07-04 18:22 | Inpatient (IN) | payer OTHER ==
[2019-07-04 18:48] VITALS: BMI 30.4
--- NOTE | 2019-07-04 19:42 | HP ---
CIWA Score Nausea/Vomitin Muscle Tremors: 2 Anxiety: 3 Agitation: 2 Paroxysmal Sweats: 3 Orientation: 0-Oriented Tacttile Disturbances: 2-Mild Itch/Numbness/Burn Auditory Disturbances: 0-None Visual Disturbances: 0-None Headache: 2-Mild CIWA-Ar Total Score: 16 - Admission Criteria OASAS Guidelines: Admission for Medically Managed Detox: Requires at least one of the followin. CIWA greater than 12 2. Seizures within the past 24 hours 3. Delirium tremens within the past 24 hours 4. Hallucinations within the past 24 hours 5. Acute intervention needed for co occurring medical disorder 6. Acute intervention needed for co occurring psychiatric disorder 7. Severe withdrawal that cannot be handled at a lower level of care (continued vomiting, continued diarrhea, abnormal vital signs) requiring intravenous medication and/or fluids 8. Admitting History and Physical - Admission Chief Complaint: "I'm here for alcohol detox" History of Present Illness: A 44year old male with history of HTN, DM, GERD, dyslipidemia, depression, generalized anxiety disorder, marijuana, and alcohol use disorder who presents here requesting for alcohol detox. Pt states, he was at [facility] and was given librium for withdrawals from alcohol 2days ago and was sent home to follow-up in a CD program. He reports multiple relapse, last Detox here was on 09/03/2018-09/06/2018 and was discharged to [facility] 09/06/2018-, reports he relapsed right after discharge. Denies any h/o seizures, depression, and suicidal ideation at the moment. Pt reports longest period of sobriety 2006 -2010. History Source: Patient Limitations to Obtaining History: No Limitations - Past Medical History Cardiovascular: Yes: HTN, Hyperlipdemia. No: AFIB Gastrointestinal: Yes: Pancreatitis - Past Surgical History Past Surgical History: Yes: None - Smoking History Smoking history: Current every day smoker Have you smoked in the past 12 months: Yes Aproximately how many cigarettes per day: 10 - Alcohol/Substance Use Hx Alcohol Use: Yes History of Substance Use: reports: Marijuana - Social History Usual Living Arrangement: Yes: Alone Do you think of yourself as: Straight/Heterosexual ADL: Independent History of Recent Travel: No Admission ROS [facility] - [facility] Allergies/Adverse Reactions: Allergies Allergy/AdvReac Type Severity Reaction Status Date / Time morphine Allergy Intermediate Itching Verified 07/04/19 18:31 KELLY Inhibitors AdvReac Mild Cough Verified 07/04/19 18:31 Exam Limitations: No Limitations - Ebola screening Have you traveled outside of the country in the last 21 days: No (N) Have you had contact with anyone from an Ebola affected area: No Have you been sick,other than usual withdrawal symptoms: No Do you have a fever: No - Review of Systems Constitutional: Loss of Appetite, Night Sweats EENT: reports: Blurred Vision Respiratory: reports: No Symptoms reported Cardiac: reports: No Symptoms Reported GI: reports: Poor Appetite, Abdominal cramping : reports: No Symptoms Reported Musculoskeletal: reports: Back Pain, Muscle Pain Integumentary: reports: No Symptoms Reported, Dryness, Other (b/l le dryness.) Neuro: reports: Headache, Numbness, Tremors Endocrine: reports: No Symptoms Reported Hematology: reports: No Symptoms Reported Psychiatric: reports: Judgement Intact, Anxious Other Systems: Reviewed and Negative Patient History - Patient Medical History Hx Anemia: No Hx Asthma: No Hx Chronic Obstructive Pulmonary Disease (COPD): No Hx Cancer: No Hx Cardiac Disorders: No Hx Congestive Heart Failure: No Hx Hypertension: Yes Hx Hypercholesterolemia: Yes Hx Pacemaker: No HX Cerebrovascular Accident: No Hx Seizures: No Hx Dementia: No Hx Diabetes: Yes Hx Gastrointestinal Disorders: No Hx Liver Disease: Yes (fatty liver) Hx Genitourinary Disorders: No Hx Sexually Transmitted Disorders: No Hx Renal Disease (ESRD): No Hx Thyroid Disease: No Hx Human Immunodeficiency Virus (HIV): No (last 2017) Hx Hepatitis C: No Hx Depression: Yes Hx Suicide Attempt: No Hx Bipolar Disorder: Yes Hx Schizophrenia: No - Patient Surgical History Past Surgical History: No Hx Neurologic Surgery: No Hx Cataract Extraction: No Hx Cardiac Surgery: No Hx Lung Surgery: No Hx Breast Surgery: No Hx Breast Biopsy: No Hx Abdominal Surgery: No Hx Appendectomy: No Hx Cholecystectomy: No Hx Genitourinary Surgery: No Hx Section: No Hx Orthopedic Surgery: No Other Surgical History: has cardiac cath at [facility] on 02/07/19 was told to be negative Anesthesia Reaction: No - PPD History Previous Implant?: Yes Documented Results: Negative w/proof Implanted On Prior R Admission?: Yes Date: 08/24/18 Results: 0mm PPD to be Administered?: No - Smoking Cessation Smoking history: Current every day smoker Have you smoked in the past 12 months: Yes Aproximately how many cigarettes per day: 10 Hx Chewing Tobacco Use: No Initiated information on smoking cessation: Yes 'Breaking Loose' booklet given: 07/04/19 - Substance & Tx. History Hx Alcohol Use: Yes Substance Use Type: Marijuana Hx Substance Use Treatment: Yes (multiple detox/rehab in the past.) - Substances abused Alcohol Substance route: Oral Frequency: Daily Amount used: liquor- 3 pints, beer- 1 six pack Age of first use: 13 Date of last use: 07/04/19 Marijuana/Hashish Substance route: Inhalation Frequency: 1-3 times last 30 days Amount used: 1 blunt Age of first use: 13 Date of last use: 07/04/19 Admission Physical Exam [facility] - Vital Signs Vital Signs: Vital Signs - 24 hr 07/04/19 18:30 Temperature 96.6 F L Pulse Rate 102 H Respiratory 18 Rate Blood Pressure 134/72 - Physical General Appearance: Yes: No Apparent Distress, Tremorous, Irritable, Sweating, Anxious HEENTM: Yes: EOMI, Hearing grossly Normal, Normocephalic, Normal Voice, NOAH, Tm 's normal Respiratory: Yes: Chest Non-Tender, Lungs Clear, Normal Breath Sounds, No Respiratory Distress, No Accessory Muscle Use Neck: Yes: No masses,lesions,Nodules, Supple, Trachea in good position Breast: Yes: Within Normal Limits Cardiology: Yes: Regular Rhythm, Regular Rate, S1, S2 Abdominal: Yes: Normal Bowel Sounds, Soft, Tenderness Genitourinary: Yes: Within Normal Limits Back: Yes: Normal Inspection Musculoskeletal: Yes: full range of Motion, Gait Steady, Back pain, Muscle Pain Extremities: Yes: Normal Capillary Refill, Tremors Neurological: Yes: Alert, Normal Mood/Affect, Normal Response Integumentary: Yes: Dry, Warm, Other (small abrasions to right knee.) Lymphatic: Yes: Within Normal Limits Cleared for Admission [facility] - Detox or Rehab [facility] Level of Care: Medically Managed Detox Regimen/Protocol: Ativan Claeared for Rehab Admission: No Breathalyzer - Breathalyzer Breathalyzer: 0.320 Urine Drug Screen - Test Device Lot number: [id number] Expiration date: 01/17/21 - Control Is test valid?: Yes - Results Drug screen NEGATIVE: No Urine drug screen results: BZO-Benzodiazepines Inpatient Rehab Admission - Rehab Decision to Admit Inpatient rehab admission?: No
[2019-07-04] MEDS ORDERED: guaiFENesin 200 MG/10 ML 10 ML UNIT-DOSE CUPS PO PRN (19:58)
[2019-07-04] MEDS ORDERED: MAGNESIUM CITRATE 300 ML BOTTLE PO PRN (19:58)
[2019-07-04] MEDS ORDERED: IBUPROFEN 400 MG TABLET (FP) PO PRN (19:58)
[2019-07-04] MEDS ORDERED: MELATONIN 5 MG TABLETS PO PRN (19:58)
[2019-07-04] MEDS ORDERED: ONDANSETRON *ODT* 4 MG TABLET SL PRN (19:58)
[2019-07-04] MEDS ORDERED: MAGNESIUM HYDROX 2400MG/30ML ORAL SUSPENSION 30 ML CUP PO PRN (19:58)
[2019-07-04] MEDS ORDERED: MAG HYDROX/AL HYDROX/SIMETH 30 ML UNIT-DOSE CUP PO PRN (19:58)
[2019-07-04] MEDS ORDERED: ACETAMINOPHEN 325 MG TABLET (FP) PO PRN ×2 (19:58)
[2019-07-04] MEDS ORDERED: BISMUTH SUBSALICYLATE 524 MG/30 ML UD PO PRN (19:58)
[2019-07-04] MEDS ORDERED: hydrOXYzine PAMOATE 25 MG CAPSULE (FP) PO PRN (19:58)
[2019-07-04] MEDS ORDERED: MENTHOL/PHENOL 1 EACH UD MM PRN (19:58)
[2019-07-04] MEDS ORDERED: NICOTINE POLACRILEX 2 MG GUM BUC PRN (19:58)
[2019-07-04] MEDS ORDERED: METHOCARBAMOL 500 MG TABLET PO PRN (19:58)
[2019-07-04] MEDS ORDERED: LORazepam 1 MG TABLET PO PRN (20:02)
[2019-07-04] MEDS: METOPROLOL TARTRATE 50 MG TABLET (FP) PO SCH (22:15)
[2019-07-04] MEDS: THIAMINE HCL 100 MG TABLET (FP) PO SCH (22:15)
[2019-07-04] MEDS: LORazepam 2 MG TABLET PO SCH (22:15)
[2019-07-04] MEDS: INSULIN SLIDING SCALE (NOVOLOG) 1 VIAL SQ SCH (22:24)
[2019-07-05] MEDS: LORazepam 2 MG TABLET PO SCH ×4 (05:43→22:46)
[2019-07-05] MEDS: metFORMIN HCL 500 MG TABLET (FP) PO SCH ×2 (06:52→17:29)
[2019-07-05] MEDS: INSULIN SLIDING SCALE (NOVOLOG) 1 VIAL SQ SCH ×4 (06:53→22:48)
[2019-07-05] MEDS ORDERED: glipiZIDE 5 MG TABLET (FP) ONE (07:18)
[2019-07-05] MEDS: glipiZIDE 10 MG TABLET (FP) PO SCH ×2 (07:21→17:30)
[2019-07-05 09:44] LABS: HEMATOCRIT 33.4 % (35.4-49); HEMOGLOBIN 11.1 GM/dL (11.7-16.9); MCH 27.9 pg (25.7-33.7); MCHC 33.3 g/dl (32.0-35.9); MEAN CELL VOLUME 83.8 fl (80-96); MEAN PLT VOLUME 8.6 fl (7.5-11.1); PLATELET COUNT 189 K/MM3 (134-434); RBC 3.98 M/mm3 (4.00-5.60); RDW 15.3 % (11.9-15.9); WHITE BLOOD COUNT 3.2 K/mm3 (4.0-10.0)
[2019-07-05 09:48] LABS: BILIRUBIN,TOTAL 0.2 mg/dL (0.2-1); BLOOD UREA NITROGEN 7.2 mg/dL (7-18); CALCIUM 8.1 mg/dL (8.5-10.1); CREATININE 0.7 mg/dL (0.55-1.3); POTASSIUM 4.1 mmol/L (3.5-5.1); TOT PROT 6.1 g/dl (6.4-8.2)
--- NOTE | 2019-07-05 09:52 | PN ---
S CIWA - CIWA Score Nausea/Vomitin Muscle Tremors: 2 Anxiety: 2 Agitation: 2 Paroxysmal Sweats: No Perspiration Orientation: 0-Oriented Tacttile Disturbances: 1-Very Mild Itch/Numbness Auditory Disturbances: 0-None Visual Disturbances: 0-None Headache: 2-Mild CIWA-Ar Total Score: 11 S Progress Note (SOAP) Subjective: alert,irritable,anxious,interrupted sleep,pain in the body Objective: 07/05/19 09:50 Vital Signs Temperature 98.3 F 07/05/19 09:07 Pulse Rate 91 H 07/05/19 09:07 Respiratory Rate 17 07/05/19 09:07 Blood Pressure 142/92 07/05/19 09:07 O2 Sat by Pulse Oximetry (%) Laboratory Last Values WBC 3.2 K/mm3 (4.0-10.0) L 07/05/19 08:10 RBC 3.98 M/mm3 (4.00-5.60) L 07/05/19 08:10 Hgb 11.1 GM/dL (11.7-16.9) L 07/05/19 08:10 Hct 33.4 % (35.4-49) L 07/05/19 08:10 MCV 83.8 fl (80-96) 07/05/19 08:10 MCH 27.9 pg (25.7-33.7) 07/05/19 08:10 MCHC 33.3 g/dl (32.0-35.9) 07/05/19 08:10 RDW 15.3 % (11.9-15.9) 07/05/19 08:10 Plt Count 189 K/MM3 (134-434) 07/05/19 08:10 MPV 8.6 fl (7.5-11.1) 07/05/19 08:10 Sodium 140 mmol/L (136-145) 07/05/19 08:10 Potassium 4.1 mmol/L (3.5-5.1) 07/05/19 08:10 Chloride 106 mmol/L (98-107) 07/05/19 08:10 Carbon Dioxide 29 mmol/L (21-32) 07/05/19 08:10 Anion Gap 5 MMOL/L (8-16) L 07/05/19 08:10 BUN 7.2 mg/dL (7-18) 07/05/19 08:10 Creatinine 0.7 mg/dL (0.55-1.3) 07/05/19 08:10 Est GFR (CKD-EPI)AfAm 132.09 07/05/19 08:10 Est GFR (CKD-EPI)NonAf 113.97 07/05/19 08:10 POC Glucometer 250 UNITS (80-120) 07/05/19 05:45 Random Glucose 222 mg/dL (74-106) H 07/05/19 08:10 Calcium 8.1 mg/dL (8.5-10.1) L 07/05/19 08:10 Total Bilirubin 0.2 mg/dL (0.2-1) 07/05/19 08:10 AST 38 U/L (15-37) H 07/05/19 08:10 ALT 37 U/L (13-61) 07/05/19 08:10 Alkaline Phosphatase 71 U/L (45-117) 07/05/19 08:10 Total Protein 6.1 g/dl (6.4-8.2) L 07/05/19 08:10 Albumin 3.0 g/dl (3.4-5.0) L 07/05/19 08:10 Assessment: 07/05/19 09:51 withdrawal symptom Plan: continue detox ativan regimen,bgm monitoring
[2019-07-05] MEDS: PRENATAL VITAMINS W/ FOLIC ACID TABLET (FP) PO SCH (10:22)
[2019-07-05] MEDS: PANTOPRAZOLE 40 MG TABLET PO SCH (10:22)
[2019-07-05] MEDS: METOPROLOL TARTRATE 50 MG TABLET (FP) PO SCH ×2 (10:22→22:46)
[2019-07-05] MEDS: NICOTINE 14 MG/24 HOURS TOPICAL PATCH TD SCH (10:26)
[2019-07-05 11:30] LABS: RPR NONREACTIVE (NONREACTIVE)
--- NOTE | 2019-07-05 15:31 | CONSULT ---
[facility] Psychiatric Consult - Data Date of interview: 07/05/19 Admission source: [facility] Identifying data: Revisit to [facility] and admission to [address] [place] [address] for this 44 y/o AA male self-referred for detoxification treatment. TEX issues : alcohol, cannabis, nicotine. Patient is single, no children, homeless, unemployed and deprived of any source of income. Substance Abuse History: Discussed with the patient. Details in current [facility] report as foloows : Smoking history: Current every day smoker. Have you smoked in the past 12 months: Yes. Aproximately how many cigarettes per day: 10. Hx Chewing Tobacco Use: No. Initiated information on smoking cessation: Yes. ' Breaking Loose' booklet given: 07/04/19. - Substance & Tx. History. Hx Alcohol Use: Yes. Substance Use Type: Marijuana. Hx Substance Use Treatment: Yes (multiple detox/rehab in the past.). - Substances abused. Alcohol. Substance route: Oral. Frequency: Daily. Amount used: liquor- 3 pints, beer- 1 six pack. Age of first use: 13. Date of last use: 07/04/19. Marijuana/ Hashish. Substance route: Inhalation. Frequency: 1-3 times last 30 days. Amount used: 1 blunt. Age of first use: 13. Date of last use: 07/04/19 Medical History: Medical profile is remarkable for diabetes mellitus, hypertension, antecedent of pancreatitis (2013), fatty liver, dyslipidemia and history of splenic vein thrombosis. Psychiatric History: Patient denies history of psychiatric hospitalizations. However, he presents with a long standing history of MDD, diagnosed about 10 years ago, at a previous admission to a rehabilitation treatment center in [place]. Past treatment with paroxetine (40 mg/day) and escitalopram 10 mg/ day + doxepin (insomnia) at [facility]. Mr Pal admits to chronic non- adherence to OPD care. He indicates that he has been prescribed remeron + lexapro at his most recent admission to [facility] in February 2019. NOT taken for weeks (self-report).Patient denies history of suicide attempts. Physical/Sexual Abuse/Trauma History: Patient denies. Additional Comment: Urine drug screen results: BZO-Benzodiazepines. Noted. Mental Status Exam - Mental Status Exam Alert and Oriented to: Time, Place, Person Cognitive Function: Good Patient Appearance: Well Groomed Mood: Withdrawn, Hopeful Affect: Appropriate, Normal Range Patient Behavior: Fatigued, Appropriate, Cooperative Speech Pattern: Clear Voice Loudness: Normal Thought Process: Intact, Goal Oriented Thought Disorder: Not Present Hallucinations: Denies Suicidal Ideation: Denies Homicidal Ideation: Denies Insight/Judgement: Poor Sleep: Poorly, Difficulty falling asleep Appetite: Good Gait/Station: Normal Psychiatric Findings - Problem List ([place] 1, 2,3) (1) Alcohol dependence with uncomplicated withdrawal Current Visit: Yes Status: Acute (2) Nicotine dependence Current Visit: Yes Status: Chronic Qualifiers: Nicotine product type: cigarettes Substance use status: uncomplicated Qualified Code(s): F17.210 - Nicotine dependence, cigarettes, uncomplicated (3) Substance induced mood disorder Current Visit: Yes Status: Chronic (4) History of depression Current Visit: Yes Status: Chronic (5) Insomnia Current Visit: Yes Status: Chronic - Initial Treatment Plan Initial Treatment Plan: Psychoeducation. Sleep hygiene. Detoxification. AA meetings. MAT services explained to patient. Resumed : mirtazapine 15 mg po hs. Side effects/benefits discussed with patient. Mr Pal is in agreement with this plan of care.
[2019-07-05] MEDS: MIRTAZAPINE 15 MG TABLET (FP) PO SCH (22:46)
[2019-07-05] MEDS: THIAMINE HCL 100 MG TABLET (FP) PO SCH (22:46)
[2019-07-06] MEDS: LORazepam 1 MG TABLET PO SCH ×4 (05:14→22:07)
[2019-07-06] MEDS: metFORMIN HCL 500 MG TABLET (FP) PO SCH ×2 (06:51→16:56)
[2019-07-06] MEDS: INSULIN SLIDING SCALE (NOVOLOG) 1 VIAL SQ SCH ×4 (06:51→22:07)
[2019-07-06] MEDS: glipiZIDE 10 MG TABLET (FP) PO SCH ×2 (06:51→16:56)
[2019-07-06] MEDS: METOPROLOL TARTRATE 50 MG TABLET (FP) PO SCH (10:17)
[2019-07-06] MEDS: PANTOPRAZOLE 40 MG TABLET PO SCH (10:17)
[2019-07-06] MEDS: PRENATAL VITAMINS W/ FOLIC ACID TABLET (FP) PO SCH (10:17)
[2019-07-06] MEDS: NICOTINE 14 MG/24 HOURS TOPICAL PATCH TD SCH (10:18)
--- NOTE | 2019-07-06 11:27 | PN ---
S CIWA - CIWA Score Nausea/Vomitin-No Nausea/No Vomiting Muscle Tremors: 2 Anxiety: 3 Agitation: 1-Slight > Activity Paroxysmal Sweats: 1-Minimal Palms Moist Orientation: 0-Oriented Tacttile Disturbances: 0-None Auditory Disturbances: 0-None Visual Disturbances: 1-Very Mild Sensitivity Headache: 1-Very Mild CIWA-Ar Total Score: 9 BHS Progress Note (SOAP) Subjective: 44 years old male admitted on 07/04/19 for alcohol withdrawal sx management treating with ativan detox regimen long history of hypertension and diabetes and obesity increase metoprolol to 25 mg po am and 50 mg po hs Objective: 07/06/19 11:32 Vital Signs Temperature 96.4 F L 07/06/19 09:09 Pulse Rate 92 H 07/06/19 09:09 Respiratory Rate 20 07/06/19 09:09 Blood Pressure 142/102 H 07/06/19 09:09 O2 Sat by Pulse Oximetry (%) Laboratory Last Values WBC 3.2 K/mm3 (4.0-10.0) L 07/05/19 08:10 RBC 3.98 M/mm3 (4.00-5.60) L 07/05/19 08:10 Hgb 11.1 GM/dL (11.7-16.9) L 07/05/19 08:10 Hct 33.4 % (35.4-49) L 07/05/19 08:10 MCV 83.8 fl (80-96) 07/05/19 08:10 MCH 27.9 pg (25.7-33.7) 07/05/19 08:10 MCHC 33.3 g/dl (32.0-35.9) 07/05/19 08:10 RDW 15.3 % (11.9-15.9) 07/05/19 08:10 Plt Count 189 K/MM3 (134-434) 07/05/19 08:10 MPV 8.6 fl (7.5-11.1) 07/05/19 08:10 Sodium 140 mmol/L (136-145) 07/05/19 08:10 Potassium 4.1 mmol/L (3.5-5.1) 07/05/19 08:10 Chloride 106 mmol/L (98-107) 07/05/19 08:10 Carbon Dioxide 29 mmol/L (21-32) 07/05/19 08:10 Anion Gap 5 MMOL/L (8-16) L 07/05/19 08:10 BUN 7.2 mg/dL (7-18) 07/05/19 08:10 Creatinine 0.7 mg/dL (0.55-1.3) 07/05/19 08:10 Est GFR (CKD-EPI)AfAm 132.09 07/05/19 08:10 Est GFR (CKD-EPI)NonAf 113.97 07/05/19 08:10 POC Glucometer 215 UNITS (80-120) 07/06/19 05:12 Random Glucose 222 mg/dL (74-106) H 07/05/19 08:10 Calcium 8.1 mg/dL (8.5-10.1) L 07/05/19 08:10 Total Bilirubin 0.2 mg/dL (0.2-1) 07/05/19 08:10 AST 38 U/L (15-37) H 07/05/19 08:10 ALT 37 U/L (13-61) 07/05/19 08:10 Alkaline Phosphatase 71 U/L (45-117) 07/05/19 08:10 Total Protein 6.1 g/dl (6.4-8.2) L 07/05/19 08:10 Albumin 3.0 g/dl (3.4-5.0) L 07/05/19 08:10 RPR Titer Nonreactive (NONREACTIVE) 07/05/19 08:10 HIV 1&2 Antibody Screen Negative 07/05/19 08:10 HIV P24 Antigen Negative 07/05/19 08:10 lab noted long history of diabetes none compliance with medication while "drinking" unknown period of time Assessment: 07/06/19 11:33 alcohol withdrawal Plan: ativan regimen
[2019-07-06] MEDS ORDERED: ASPIRIN 81 MG CHEWABLE TABLETS PO SCH (11:30)
[2019-07-06] MEDS: THIAMINE HCL 100 MG TABLET (FP) PO SCH (22:07)
[2019-07-06] MEDS: MIRTAZAPINE 15 MG TABLET (FP) PO SCH (22:07)
[2019-07-07] MEDS ORDERED: LORazepam 0.5 MG TABLET PO PRN
[2019-07-07] MEDS ORDERED: LORazepam 0.5 MG TABLET PO SCH (05:00)
[2019-07-07] MEDS: INSULIN SLIDING SCALE (NOVOLOG) 1 VIAL SQ SCH (06:06)
[2019-07-07] MEDS: glipiZIDE 10 MG TABLET (FP) PO SCH (06:06)
[2019-07-07] MEDS: metFORMIN HCL 500 MG TABLET (FP) PO SCH (06:06)
--- NOTE | 2019-07-07 08:28 | DS ---
[facility] Detox Discharge Summary Admission Date: 07/04/19 Discharge Date: 07/07/19 - History Present History: Alcohol Dependence - Physical Exam Results Vital Signs: Vital Signs Temperature 96.5 F L 07/07/19 06:44 Pulse Rate 81 07/07/19 06:44 Respiratory Rate 18 07/07/19 06:44 Blood Pressure 131/83 07/07/19 06:44 O2 Sat by Pulse Oximetry (%) - Treatment Hospital Course: Detox Protocol Followed, Detoxed Safely, Responded well, Discharged Condition Good - Medication Discharge Medications: Ambulatory Orders Canagliflozin [Invokana] 300 mg PO DAILY 09/07/18 Magnesium Oxide [Mag-Ox -] 400 mg PO DAILY 09/08/18 Aspirin [ASA -] 81 mg PO DAILY #30 tab.chew 10/03/18 Atorvastatin Ca [Lipitor] 40 mg PO HS #30 tablet 10/03/18 Metformin HCl [Glucophage] 1,000 mg PO BID #60 tablet 10/03/18 Metoprolol Tartrate [Lopressor -] 25 mg PO BID #60 tablet 10/03/18 Pantoprazole Sodium [Protonix -] 40 mg PO DAILY #30 tablet.ec 10/03/18 Doxepin HCl [Sinequan -] 50 mg PO HS 02/09/19 Escitalopram Oxalate [Lexapro -] 20 mg PO DAILY 02/09/19 Glipizide [Glucotrol -] 20 mg PO BIDAC 02/09/19 Insulin (Novolog) [Novolog] 10 units SQ BIDAC 02/09/19 - Diagnosis (1) Alcohol dependence with uncomplicated withdrawal Current Visit: Yes Status: Chronic (2) Nicotine dependence Current Visit: Yes Status: Chronic Qualifiers: Nicotine product type: cigarettes Substance use status: uncomplicated Qualified Code(s): F17.210 - Nicotine dependence, cigarettes, uncomplicated (3) Depressive disorder Current Visit: Yes Status: Chronic (4) GERD (gastroesophageal reflux disease) Current Visit: Yes Status: Chronic Qualifiers: Esophagitis presence: without esophagitis Qualified Code(s): K21.9 - Gastro -esophageal reflux disease without esophagitis (5) Hypercholesterolemia Current Visit: No Status: Chronic (6) Hypertension Current Visit: Yes Status: Chronic Qualifiers: Hypertension type: essential hypertension Qualified Code(s): I10 - Essential (primary) hypertension (7) Type II diabetes mellitus Current Visit: Yes Status: Chronic Qualifiers: Diabetes mellitus skilled nursing insulin use: without long term care phlebotomist use Diabetes mellitus complication status: without complication Qualified Code(s): E11.9 - Type 2 diabetes mellitus without complications - AMA Did Patient Leave Against Medical Advice: No
[2019-07-07 09:35] VITALS: BP 147/85; PULSE 103; TEMP 97.2
[2019-07-07] MEDS ORDERED: METOPROLOL TARTRATE 25 MG TABLET (FP) PO SCH (10:00)
[2019-07-08] MEDS ORDERED: LORazepam 0.5 MG TABLET PO ONE (05:00)
== END 2019-07-07 08:50 | disposition home or self-care (01) | DRG 775 ==
LOC: YASAS 18:22 → Y3W 20:11 → Y3N 20:18
PROVIDERS: ADMIT Allergy & Immunology; ATTEND Allergy & Immunology
PROC: HZ2ZZZZ Detoxification Services for Substance Abuse Treatment (ICD-10-PCS; principal; 2019-07-04)
DX: F10.230 Alcohol dependence with withdrawal, uncomplicated (principal); F12.10 Cannabis abuse, uncomplicated; F17.210 Nicotine dependence, cigarettes, uncomplicated; F19.24 Other psychoactive substance dependence with psychoactive substance-induced mood disorder; F41.1 Generalized anxiety disorder; F32.9 Major depressive disorder, single episode, unspecified; G47.00 Insomnia, unspecified; I10 Essential (primary) hypertension; E11.9 Type 2 diabetes mellitus without complications; Z79.84 Long term (current) use of oral hypoglycemic drugs; E78.00 Pure hypercholesterolemia, unspecified; K21.9 Gastro-esophageal reflux disease without esophagitis; E66.9 Obesity, unspecified; Z68.30 Body mass index [BMI] 30.0-30.9, adult; Z88.5 Allergy status to narcotic agent; Z88.8 Allergy status to other drugs, medicaments and biological substances; Z87.19 Personal history of other diseases of the digestive system
CPT/HCPCS: 36415; 80053; 82962; 85027; 86593; 87389

== ENCOUNTER 2019-12-27 14:10 | Inpatient (IN) | payer OTHER ==
--- NOTE | 2019-12-27 14:43 | BHS.RME ---
Substance Use & Tx History - Last Treatment Date of last treatment: 07/04/19 to 07/07/19 Treatment type: Substance Use Disorder (TEX) Where was last treatment: Detox Physical/Psych/Mental Status - Behavior General Behavior: Increased activity (restlessness, agitation) Eye Contact: Normal - Cooperativeness Cooperativeness: Cooperative - Thinking Thought Processes: Tight Thought content: Future oriented - Physical Health Problems Is patient presently having any pain?: No Does patient presently have any injuries (include location): No Does patient currently have a fever: No CIWA Nausea/Vomitin Muscle Tremors: None Anxiety: 3 Agitation: 0-Normal Activity Paroxysmal Sweats: 2 Orientation: 2-Disoriented Date<2 days Tacttile Disturbances: 0-None Auditory Disturbances: 0-None Visual Disturbances: 0-None Headache: 0-None Present CIWA-Ar Total Score: 9
[2019-12-27 15:05] VITALS: BMI 28.0
--- NOTE | 2019-12-27 15:05 | HP ---
CIWA Score Nausea/Vomitin Muscle Tremors: None Anxiety: 3 Agitation: 0-Normal Activity Paroxysmal Sweats: 2 Orientation: 2-Disoriented Date<2 days Tacttile Disturbances: 0-None Auditory Disturbances: 0-None Visual Disturbances: 0-None Headache: 0-None Present CIWA-Ar Total Score: 9 - Admission Criteria [facility]ASAS Guidelines: Admission for Medically Managed Detox: Requires at least one of the followin. CIWA greater than 12 2. Seizures within the past 24 hours 3. Delirium tremens within the past 24 hours 4. Hallucinations within the past 24 hours 5. Acute intervention needed for co occurring medical disorder 6. Acute intervention needed for co occurring psychiatric disorder 7. Severe withdrawal that cannot be handled at a lower level of care (continued vomiting, continued diarrhea, abnormal vital signs) requiring intravenous medication and/or fluids 8. Admitting History and Physical - Admission Chief Complaint: Mr. Pal is a 44 yo man who presents to [facility] requesting admission to detox stating "all I've been doing is drinking". History of Present Illness: Mr. Pal is a 44 yo man who presents to [facility] requesting admission to detox stating "all I've been doing is drinking". PMH: Type 2 DM, HTN, pancreatitis PSH/:legal: none Psych: depression, insomnia, Lexapro SOC: lives with a friend in [place] Substance use history Alcohol: 12 x 24 ounce beer daily. 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 Upon leaving [facility] he relapsed withing weeks Meets admission criteria as current CIWA does not reflect extent of withdrawal symptoms, currently intoxicated, comorbid medical conditions Patient Name: Rafi Pal Date: 1975 Address: [address] [place] [address] Sex: Male Rx Written Rx Dispensed Drug Quantity Days Supply Prescriber Name Payment Method Dispenser 10/05/2019 10/05/2019 chlordiazepoxide 25 mg capsule 8 2 [facility] History Source: Patient Limitations to Obtaining History: No Limitations - Past Medical History Cardiovascular: Yes: HTN, Hyperlipdemia. No: AFIB Gastrointestinal: Yes: Pancreatitis - Past Surgical History Past Surgical History: Yes: None - Smoking History Smoking history: Current every day smoker Have you smoked in the past 12 months: Yes Aproximately how many cigarettes per day: 10 If you are a former smoker, when did you quit?: 2008 - Alcohol/Substance Use Hx Alcohol Use: Yes History of Substance Use: reports: Marijuana - Social History ADL: Independent History of Recent Travel: No Admission ROS S - HPI Allergies/Adverse Reactions: Allergies Allergy/AdvReac Type Severity Reaction Status Date / Time morphine Allergy Intermediate Itching Verified 12/27/19 14:52 KELLY Inhibitors AdvReac Mild Cough Verified 12/27/19 14:52 Exam Limitations: No Limitations - Ebola screening Have you traveled outside of the country in the last 21 days: No Have you been sick,other than usual withdrawal symptoms: No Do you have a fever: No - Review of Systems Constitutional: No Symptoms Reported EENT: reports: Blurred Vision (wears progressive glasses, has with him) Respiratory: reports: No Symptoms reported Cardiac: reports: No Symptoms Reported GI: reports: Nausea : reports: Dysuria Musculoskeletal: reports: No Symptoms Reported Integumentary: reports: No Symptoms Reported Neuro: reports: No Symptoms reported Endocrine: reports: Other (home glucose avg 140) Hematology: reports: No Symptoms Reported Psychiatric: reports: Anxious Patient History - Patient Medical History Hx Anemia: No Hx Asthma: No Hx Chronic Obstructive Pulmonary Disease (COPD): No Hx Cancer: No Hx Cardiac Disorders: No Hx Congestive Heart Failure: No Hx Hypertension: Yes Hx Hypercholesterolemia: Yes Hx Pacemaker: No HX Cerebrovascular Accident: No Hx Seizures: No Hx Dementia: No Hx Diabetes: Yes Hx Gastrointestinal Disorders: No Hx Liver Disease: Yes (fatty liver) Hx Genitourinary Disorders: No Hx Sexually Transmitted Disorders: No Hx Renal Disease (ESRD): No Hx Thyroid Disease: No Hx Human Immunodeficiency Virus (HIV): No (last 2017) Hx Hepatitis C: No Hx Depression: Yes Hx Suicide Attempt: No Hx Bipolar Disorder: Yes Hx Schizophrenia: No - Patient Surgical History Past Surgical History: No Hx Neurologic Surgery: No Hx Cataract Extraction: No Hx Cardiac Surgery: No Hx Lung Surgery: No Hx Breast Surgery: No Hx Breast Biopsy: No Hx Abdominal Surgery: No Hx Appendectomy: No Hx Cholecystectomy: No Hx Genitourinary Surgery: No Hx Section: No Hx Orthopedic Surgery: No Other Surgical History: has cardiac cath at [facility] on 02/07/19 was told to be negative Anesthesia Reaction: No - PPD History Date: 08/24/18 Results: 0mm - Smoking Cessation Smoking history: Current every day smoker Have you smoked in the past 12 months: Yes Aproximately how many cigarettes per day: 10 If you are a former smoker, when did you quit?: 2008 Cigars Per Day: 0 Hx Chewing Tobacco Use: No Initiated information on smoking cessation: Yes 'Breaking Loose' booklet given: 12/27/19 - Substances abused Alcohol Substance route: Oral Frequency: Daily Amount used: 6 pk of beer & 1 pint opf vodka Age of first use: 15 Date of last use: 12/27/19 Admission Physical Exam [facility] - Physical General Appearance: Yes: No Apparent Distress, Nourished, Intoxicated HEENTM: Yes: EOMI, Hearing grossly Normal, Normocephalic Respiratory: Yes: Lungs Clear, Normal Breath Sounds, No Accessory Muscle Use Neck: Yes: Within Normal Limits, Supple Breast: Yes: Breast Exam Deferred Cardiology: Yes: Regular Rhythm, Regular Rate, S1, S2 Abdominal: Yes: Normal Bowel Sounds, Non Tender, Soft, Protuberent Back: Yes: Normal Inspection Musculoskeletal: Yes: Gait Steady Extremities: Yes: Normal Inspection, Non-Tender Neurological: Yes: Alert, Normal Mood/Affect Integumentary: Yes: Normal Color, Dry, Warm - Diagnostic (1) Alcohol dependence with withdrawal, uncomplicated Current Visit: Yes Status: Acute (2) Hypertension Current Visit: Yes Status: Chronic Qualifiers: Hypertension type: essential hypertension Qualified Code(s): I10 - Essential (primary) hypertension (3) Nicotine dependence Current Visit: Yes Status: Acute Qualifiers: Nicotine product type: cigarettes Substance use status: uncomplicated Qualified Code(s): F17.210 - Nicotine dependence, cigarettes, uncomplicated (4) Type II diabetes mellitus Current Visit: Yes Status: Chronic Qualifiers: Diabetes mellitus skilled nursing insulin use: without skilled nursing use Diabetes mellitus complication status: without complication Qualified Code(s): E11.9 - Type 2 diabetes mellitus without complications Cleared for Admission [facility] - Detox or Rehab [facility] Level of Care: Medically Managed Detox Regimen/Protocol: Librium Breathalyzer - Breathalyzer Breathalyzer: 0.382 Urine Drug Screen - Test Device Lot number: [id number] Expiration date: 02/18/21 - Control Is test valid?: Yes - Results Drug screen NEGATIVE: No Urine drug screen results: BZO-Benzodiazepines Inpatient Rehab Admission - Rehab Decision to Admit Inpatient rehab admission?: No
[2019-12-27] MEDS ORDERED: IBUPROFEN 400 MG TABLET (FP) PO PRN (15:10)
[2019-12-27] MEDS ORDERED: MENTHOL/PHENOL 1 EACH UD MM PRN (15:10)
[2019-12-27] MEDS ORDERED: METHOCARBAMOL 500 MG TABLET PO PRN (15:10)
[2019-12-27] MEDS ORDERED: MAG HYDROX/AL HYDROX/SIMETH 30 ML UNIT-DOSE CUP PO PRN (15:10)
[2019-12-27] MEDS ORDERED: ACETAMINOPHEN 325 MG TABLET (FP) PO PRN ×2 (15:10)
[2019-12-27] MEDS ORDERED: chlordiazePOXIDE HCL 25 MG CAPSULE PO PRN (15:10)
[2019-12-27] MEDS ORDERED: MAGNESIUM CITRATE 300 ML BOTTLE PO PRN (15:10)
[2019-12-27] MEDS ORDERED: BISMUTH SUBSALICYLATE 262 MG/15 ML BTL PO PRN (15:10)
[2019-12-27] MEDS ORDERED: MAGNESIUM HYDROX 2400MG/30ML ORAL SUSPENSION 30 ML CUP PO PRN (15:10)
[2019-12-27] MEDS ORDERED: NICOTINE POLACRILEX 2 MG GUM BUC PRN (15:10)
[2019-12-27] MEDS ORDERED: ONDANSETRON *ODT* 4 MG TABLET SL PRN (15:10)
[2019-12-27] MEDS: PANTOPRAZOLE 40 MG TABLET PO SCH (16:39)
[2019-12-27] MEDS: ASPIRIN 81 MG CHEWABLE TABLETS PO SCH (16:39)
[2019-12-27] MEDS: PRENATAL VITAMINS W/ FOLIC ACID TABLET (FP) PO SCH (16:41)
[2019-12-27] MEDS ORDERED: TUBERCULIN PPD 5 TU/0.1ML VIAL ID ONE ×2 (16:42→16:50)
[2019-12-27] MEDS: INSULIN (NOVOLOG) ASPART 100 UNITS/ML 10ML VIAL SQ SCH (16:47)
[2019-12-27] MEDS: NICOTINE 14 MG/24 HOURS TOPICAL PATCH TD SCH (16:49)
[2019-12-27 16:57] LABS: HEMATOCRIT 37.7 % (35.4-49); HEMOGLOBIN 12.7 GM/dL (11.7-16.9); MCH 30.2 pg (25.7-33.7); MCHC 33.8 g/dl (32.0-35.9); MEAN CELL VOLUME 89.5 fl (80-96); MEAN PLT VOLUME 8.6 fl (7.5-11.1); PLATELET COUNT 182 K/MM3 (134-434); RBC 4.21 M/mm3 (4.00-5.60); RDW 17.4 % (11.9-15.9); WHITE BLOOD COUNT 3.3 K/mm3 (4.0-10.0)
[2019-12-27 17:08] LABS: ALBUMIN 3.7 g/dl (3.4-5.0); BILIRUBIN,TOTAL 0.5 mg/dL (0.2-1); CALCIUM 7.7 mg/dL (8.5-10.1); CREATININE 0.7 mg/dL (0.55-1.3); POTASSIUM 3.6 mmol/L (3.5-5.1); TOT PROT 7.9 g/dl (6.4-8.2)
[2019-12-27] MEDS: chlordiazePOXIDE HCL 25 MG CAPSULE PO SCH ×2 (17:10→22:09)
[2019-12-27] MEDS: hydrOXYzine PAMOATE 25 MG CAPSULE (FP) PO SCH ×2 (17:11→22:09)
[2019-12-27] MEDS ORDERED: MELATONIN 5 MG TABLETS PO SCH (22:00)
[2019-12-27] MEDS: ATORVASTATIN CA 40 MG TABLET (FP) PO SCH (22:09)
[2019-12-27] MEDS: METOPROLOL TARTRATE 25 MG TABLET (FP) PO SCH (22:09)
[2019-12-27] MEDS: THIAMINE HCL 100 MG TABLET (FP) PO SCH (22:09)
[2019-12-28] MEDS ORDERED: cloNIDine HCL 0.1 MG TABLET PO ONE ×2 (06:36→15:56)
--- NOTE | 2019-12-28 06:39 | PN ---
BHS Progress Note Note: Patient's blood pressure this morning is B/P 169/115. Patient is asymptomatic Vital Signs Temperature 98.7 F 12/28/19 06:40 Pulse Rate 97 H 12/28/19 06:40 Respiratory Rate 18 12/28/19 06:40 Blood Pressure 169/115 H 12/28/19 06:40 O2 Sat by Pulse Oximetry (%) 96 12/28/19 05:37 Action: Clonidine HCL 0.1mg tablet oral ordered
[2019-12-28] MEDS: hydrOXYzine PAMOATE 25 MG CAPSULE (FP) PO SCH ×5 (06:50→22:11)
[2019-12-28] MEDS: chlordiazePOXIDE HCL 25 MG CAPSULE PO SCH ×2 (06:52→10:05)
[2019-12-28] MEDS: INSULIN (NOVOLOG) ASPART 100 UNITS/ML 10ML VIAL SQ SCH ×2 (06:54→17:53)
[2019-12-28] MEDS: PANTOPRAZOLE 40 MG TABLET PO SCH (09:07)
[2019-12-28] MEDS: ASPIRIN 81 MG CHEWABLE TABLETS PO SCH (09:07)
[2019-12-28] MEDS: PRENATAL VITAMINS W/ FOLIC ACID TABLET (FP) PO SCH (09:08)
[2019-12-28] MEDS: METOPROLOL TARTRATE 25 MG TABLET (FP) PO SCH ×2 (09:08→22:11)
[2019-12-28] MEDS: NICOTINE 14 MG/24 HOURS TOPICAL PATCH TD SCH (09:08)
--- NOTE | 2019-12-28 09:46 | CONSULT ---
[facility] Psychiatric Consult - Data Date of interview: 12/28/19 Admission source: Self-referred Identifying data: Mr Pal is a 44 years old single Black male, unemployed receiving unemployment benefit, living with a friend in [place], [place] seeking detox for alcohol Substance Abuse History: Reports history of alcohol use. Refer to addiction counselor's summary for further information Medical History: Significant for hypertension, dyslipidemia, type 2 diabetes mellitus, history of pancreatitis and splenic vein thrombosis. Smokes at least 10 cgarettes daily Psychiatric History: Patient is known for multiple previous admissions to this facility. He reports that his first psychiatric contact occured more than 10 years ago while admitted to a hospital for medical reason. He was started on Paxil for anxiety. Reports that he was taking that medication on & off till June 2018 when he wasswitched to [facility] while in a rehab in [place]. During one his admission to this facility in August 2018, Lexapro 20 mg/day and Doxepin 10 mg/hs that he was on at the time were continued by technical writer and editor. During his most recent admission to this facility, he saw Dr King on 07/05/19 and he was prescribed Remeron 15 mg/hs. From this facility, he was referred to [facility] after discharged on 07/07/19. Reports that he stayed only 2 weeks there. Reports that his last treatment was with a psychiatrist in [place], [place] and he was prescribed Lexapro and Remeron. Claims that due to Covid pandemic his last visit was in September 2019. [facility] in [place] [phone]. According to pharmacist, script for Lexapro 20 mg/day was filled on 07/31/19 but sript for Wellbutrin 150 mg/bid received on 10/19/19 was not picked up. Denies previous psychiatric hospitalization or suicidal ideations. At present, reports feeling mildly depressed and sleeping poorly Physical/Sexual Abuse/Trauma History: Denies history of verbal, physical or sexual abuse as well as DV relationship Additional Comment: Reports history of 2 previous misdemeanor arrests. Denies being on probatio currently. Reports having an active case for criminal mis Mental Status Exam - Mental Status Exam Alert and Oriented to: Time, Place, Person Cognitive Function: Fair Patient Appearance: Disheveled Mood: Depressed (mildly) Affect: Appropriate Speech Pattern: Clear Voice Loudness: Normal Thought Process: Intact, Goal Oriented Thought Disorder: Not Present Hallucinations: Denies Suicidal Ideation: Denies Homicidal Ideation: Denies Insight/Judgement: Poor Sleep: Poorly Muscle strength/Tone: Normal Gait/Station: Normal Psychiatric Findings - Problem List ([place] 1, 2,3) (1) Depressive disorder Current Visit: Yes Status: Chronic (2) MDD (major depressive disorder) Current Visit: Yes Status: Ruled-out (3) Alcohol-induced mood disorder Current Visit: No Status: Acute (4) Alcohol-induced sleep disorder Current Visit: Yes Status: Acute (5) Alcohol dependence with withdrawal, uncomplicated Current Visit: Yes Status: Acute (6) Nicotine dependence Current Visit: Yes Status: Chronic Qualifiers: Nicotine product type: cigarettes Substance use status: uncomplicated Qualified Code(s): F17.210 - Nicotine dependence, cigarettes, uncomplicated (7) Hypertension Current Visit: Yes Status: Chronic Qualifiers: Hypertension type: essential hypertension Qualified Code(s): I10 - Essential (primary) hypertension (8) Type II diabetes mellitus Current Visit: Yes Status: Chronic Qualifiers: Diabetes mellitus senior living insulin use: without long term care social worker use Diabetes m ellitus complication status: without complication Qualified Code(s): E11.9 - Type 2 diabetes mellitus without complications (9) Dyslipidemia Current Visit: Yes Status: Chronic (10) Pancreatitis Current Visit: Yes Status: Resolved - Initial Treatment Plan Initial Treatment Plan: 1) Resume Remero 15 mg po HS. 2) Start Melatonin 10 mg po HS prn for insomnia. 3) Continue inpatient detoxification
--- NOTE | 2019-12-28 12:50 | PN ---
[facility] CIWA - CIWA Score Nausea/Vomitin-No Nausea/No Vomiting Muscle Tremors: 4-Moderate,w/Arms Extend Anxiety: 4-Mod. Anxious/Guarded Agitation: 2 Paroxysmal Sweats: 1-Minimal Palms Moist Orientation: 0-Oriented Tacttile Disturbances: 0-None Auditory Disturbances: 0-None Visual Disturbances: 0-None Headache: 0-None Present CIWA-Ar Total Score: 11 S Progress Note (SOAP) Subjective: Pt is a 44 y/o male admitted to detox for alcohol withdrawal sx. Pt is on Librium regimen. Last detox admission was 07/04/19 to 07/07/19. Reports he has his medicaltions at home. Last admission, pt took Glucotrol 10 mg po BID and Metformin 1000 mg po BID. Pt is a poor historian and unable at this time to give correct medication history of home meds.Pt instructed to call home and get a list of his medications to staff. BGM monitoring in place. c/o Diarrhea shakes sweats intermittent sleep "itching a lot". Objective: 12/28/19 13:01 Vital Signs - 24 hr 12/27/19 12/27/19 12/27/19 14:56 15:48 16:20 Temperature 98.3 F 97.5 F L Pulse Rate 122 H 120 H Respiratory 20 20 Rate Blood Pressure 151/103 H 151/105 H O2 Sat by Pulse 95 95 Oximetry (%) 12/27/19 12/28/19 12/28/19 20:28 05:37 06:40 Temperature 97.8 F 98.7 F Pulse Rate 128 H 97 H Respiratory 17 18 Rate Blood Pressure 127/82 169/115 H O2 Sat by Pulse 95 96 Oximetry (%) 12/28/19 09:48 Temperature Pulse Rate 111 H Respiratory 18 Rate Blood Pressure 149/88 O2 Sat by Pulse 97 Oximetry (%) Laboratory Tests 12/27/19 12/27/19 12/27/19 15:00 15:00 15:00 WBC 3.3 L RBC 4.21 Hgb 12.7 Hct 37.7 MCV 89.5 MCH 30.2 MCHC 33.8 RDW 17.4 H Plt Count 182 MPV 8.6 Sodium 139 Potassium 3.6 Chloride 103 Carbon Dioxide 24 Anion Gap 11 BUN 5.0 L Creatinine 0.7 Est GFR (CKD-EPI)AfAm 132.09 Est GFR (CKD-EPI)NonAf 113.97 POC Glucometer Random Glucose 172 H Calcium 7.7 L Total Bilirubin 0.5 AST 338 H ALT 135 H Alkaline Phosphatase 213 H Total Protein 7.9 Albumin 3.7 Syphilis Serology Non-reactive HIV Ag/Ab Combo Qual 12/27/19 12/27/19 12/27/19 15:00 15:31 16:34 WBC RBC Hgb Hct MCV MCH MCHC RDW Plt Count MPV Sodium Potassium Chloride Carbon Dioxide Anion Gap BUN Creatinine Est GFR (CKD-EPI)AfAm Est GFR (CKD-EPI)NonAf POC Glucometer 172 146 Random Glucose Calcium Total Bilirubin AST ALT Alkaline Phosphatase Total Protein Albumin Syphilis Serology HIV Ag/Ab Combo Qual Negative 12/28/19 12/28/19 06:46 11:50 WBC RBC Hgb Hct MCV MCH MCHC RDW Plt Count MPV Sodium Potassium Chloride Carbon Dioxide Anion Gap BUN Creatinine Est GFR (CKD-EPI)AfAm Est GFR (CKD-EPI)NonAf POC Glucometer 127 172 Random Glucose Calcium Total Bilirubin AST ALT Alkaline Phosphatase Total Protein Albumin Syphilis Serology HIV Ag/Ab Combo Qual Lab results noted elevated liver enzymes covid-19 results pending alert o x 3 nad oob ambulating with steady gait. Assessment: 12/28/19 13:02 withdrawal sx Elevated Transaminase enzymes Plan: continue detox increase po fluids maintain safety change protocol to Ativan taper due to elevated liver enzymes.
[2019-12-28] MEDS ORDERED: LORazepam 1 MG TABLET PO PRN ×2 (13:04→13:15)
[2019-12-28] MEDS ORDERED: LORazepam 2 MG TABLET PO SCH ×2 (17:00)
[2019-12-28] MEDS: LORazepam 2 MG TABLET PO SCH ×2 (17:52→22:11)
[2019-12-28] MEDS: MELATONIN 5 MG TABLETS PO PRN (22:10)
[2019-12-28] MEDS: MIRTAZAPINE 15 MG TABLET (FP) PO SCH (22:11)
[2019-12-28] MEDS: ATORVASTATIN CA 40 MG TABLET (FP) PO SCH (22:11)
[2019-12-28] MEDS: THIAMINE HCL 100 MG TABLET (FP) PO SCH (22:11)
[2019-12-29] MEDS ORDERED: chlordiazePOXIDE HCL 25 MG CAPSULE PO SCH (05:00)
[2019-12-29] MEDS: LORazepam 1 MG TABLET PO SCH ×4 (06:46→22:08)
[2019-12-29] MEDS: hydrOXYzine PAMOATE 25 MG CAPSULE (FP) PO SCH ×5 (06:46→22:08)
[2019-12-29] MEDS: INSULIN (NOVOLOG) ASPART 100 UNITS/ML 10ML VIAL SQ SCH ×2 (06:47→16:31)
[2019-12-29] MEDS ORDERED: cloNIDine HCL 0.1 MG TABLET PO ONE (07:41)
--- NOTE | 2019-12-29 07:45 | PN ---
[facility] Progress Note Note: Patient's blood pressure this morning is B/P 154/101. Patient is asymptomatic Vital Signs Temperature 98 F 12/29/19 06:51 Pulse Rate 102 H 12/29/19 06:51 Respiratory Rate 18 12/29/19 06:51 Blood Pressure 154/101 H 12/29/19 06:51 O2 Sat by Pulse Oximetry (%) 96 12/29/19 06:51 Action: Clonidine HCL 0.1mg tablet oral ordered
[2019-12-29] MEDS: PANTOPRAZOLE 40 MG TABLET PO SCH (10:23)
[2019-12-29] MEDS: ASPIRIN 81 MG CHEWABLE TABLETS PO SCH (10:23)
[2019-12-29] MEDS: PRENATAL VITAMINS W/ FOLIC ACID TABLET (FP) PO SCH (10:23)
[2019-12-29] MEDS: METOPROLOL TARTRATE 25 MG TABLET (FP) PO SCH ×2 (10:23→22:09)
[2019-12-29] MEDS: NICOTINE 14 MG/24 HOURS TOPICAL PATCH TD SCH (10:24)
--- NOTE | 2019-12-29 10:46 | PN ---
S CIWA - CIWA Score Nausea/Vomitin-No Nausea/No Vomiting Muscle Tremors: 3 Anxiety: 5 Agitation: 2 Paroxysmal Sweats: 1-Minimal Palms Moist Orientation: 0-Oriented Tacttile Disturbances: 0-None Auditory Disturbances: 0-None Visual Disturbances: 0-None Headache: 0-None Present CIWA-Ar Total Score: 11 S Progress Note (SOAP) Subjective: c/o anxiety tremors Objective: 12/29/19 14:01 Vital Signs - 24 hr 12/28/19 12/28/19 12/28/19 15:52 15:54 16:48 Temperature 97.5 F L Pulse Rate 99 H 99 H 101 H Respiratory 20 Rate Blood Pressure 169/114 H 166/116 H 125/102 H O2 Sat by Pulse Oximetry (%) 12/28/19 12/28/19 12/28/19 17:32 20:52 23:39 Temperature 97.5 F L 97.5 F L Pulse Rate 96 H 105 H 88 Respiratory 20 18 Rate Blood Pressure 160/109 H 153/109 H 162/95 O2 Sat by Pulse 96 98 Oximetry (%) 12/29/19 12/29/19 06:51 09:55 Temperature 98 F 96.6 F L Pulse Rate 101 H 108 H Respiratory 18 20 Rate Blood Pressure 149/95 144/97 O2 Sat by Pulse 96 98 Oximetry (%) Laboratory Tests 12/27/19 12/27/19 12/27/19 08:50 15:00 15:00 WBC 3.3 L RBC 4.21 Hgb 12.7 Hct 37.7 MCV 89.5 MCH 30.2 MCHC 33.8 RDW 17.4 H Plt Count 182 MPV 8.6 PT with INR INR Sodium 139 Potassium 3.6 Chloride 103 Carbon Dioxide 24 Anion Gap 11 BUN 5.0 L Creatinine 0.7 Est GFR (CKD-EPI)AfAm 132.09 Est GFR (CKD-EPI)NonAf 113.97 POC Glucometer Random Glucose 172 H Calcium 7.7 L Total Bilirubin 0.5 AST 338 H ALT 135 H Alkaline Phosphatase 213 H Total Protein 7.9 Albumin 3.7 Syphilis Serology COVID-19 (NAVEEN) Not detected HIV Ag/Ab Combo Qual 12/27/19 12/27/19 12/27/19 15:00 15:00 15:31 WBC RBC Hgb Hct MCV MCH MCHC RDW Plt Count MPV PT with INR INR Sodium Potassium Chloride Carbon Dioxide Anion Gap BUN Creatinine Est GFR (CKD-EPI)AfAm Est GFR (CKD-EPI)NonAf POC Glucometer 172 Random Glucose Calcium Total Bilirubin AST ALT Alkaline Phosphatase Total Protein Albumin Syphilis Serology Non-reactive COVID-19 (NAVEEN) HIV Ag/Ab Combo Qual Negative 12/27/19 12/28/19 12/28/19 16:34 06:46 11:50 WBC RBC Hgb Hct MCV MCH MCHC RDW Plt Count MPV PT with INR INR Sodium Potassium Chloride Carbon Dioxide Anion Gap BUN Creatinine Est GFR (CKD-EPI)AfAm Est GFR (CKD-EPI)NonAf POC Glucometer 146 127 172 Random Glucose Calcium Total Bilirubin AST ALT Alkaline Phosphatase Total Protein Albumin Syphilis Serology COVID-19 (NAVEEN) HIV Ag/Ab Combo Qual 12/28/19 12/28/19 12/29/19 16:51 22:09 06:45 WBC RBC Hgb Hct MCV MCH MCHC RDW Plt Count MPV PT with INR INR Sodium Potassium Chloride Carbon Dioxide Anion Gap BUN Creatinine Est GFR (CKD-EPI)AfAm Est GFR (CKD-EPI)NonAf POC Glucometer 203 112 226 Random Glucose Calcium Total Bilirubin AST ALT Alkaline Phosphatase Total Protein Albumin Syphilis Serology COVID-19 (NAVEEN) HIV Ag/Ab Combo Qual 12/29/19 12/29/19 07:05 07:20 WBC RBC Hgb Hct MCV MCH MCHC RDW Plt Count MPV PT with INR 12.40 INR 1.05 Sodium 137 Potassium 3.6 Chloride 102 Carbon Dioxide 28 Anion Gap 7 L BUN 4.8 L Creatinine 0.6 Est GFR (CKD-EPI)AfAm 140.73 Est GFR (CKD-EPI)NonAf 121.43 POC Glucometer Random Glucose 223 H Calcium 7.4 L Total Bilirubin 0.8 AST 316 H ALT 127 H Alkaline Phosphatase 194 H Total Protein 6.3 L Albumin 3.0 L Syphilis Serology COVID-19 (NAVEEN) HIV Ag/Ab Combo Qual covid- not detected liver enzymes still elevated alert o x 3 nad oob ambulating with steady gait Assessment: 12/29/19 14:03 withdrawal sx Plan: continue detox increase po fluids as tolerated maintain safety pt on sliding scale at this time metformin not reordered-elevated hepatic enzymes. Addendum; Called pt's [facility] pharmacy today to verify his home meds. [facility] pharmacy faxed list of meds to the [address]. Copy in pt's hard chart on the unit. Pt reports he has a primary care with Dr. Bowser at [place], [place]
[2019-12-29 11:13] LABS: INR 1.05 (0.83-1.09); PROTHROMBIN TIME (PATIENT) 12.4 SEC (9.7-13.0)
[2019-12-29 11:34] LABS: BILIRUBIN,TOTAL 0.8 mg/dL (0.2-1); BLOOD UREA NITROGEN 4.8 mg/dL (7-18); CALCIUM 7.4 mg/dL (8.5-10.1); CREATININE 0.6 mg/dL (0.55-1.3); POTASSIUM 3.6 mmol/L (3.5-5.1); TOT PROT 6.3 g/dl (6.4-8.2)
[2019-12-29] MEDS ORDERED: cloNIDine HCL 0.1 MG TABLET PO PRN (14:04)
[2019-12-29] MEDS: THIAMINE HCL 100 MG TABLET (FP) PO SCH (22:08)
[2019-12-29] MEDS: ATORVASTATIN CA 40 MG TABLET (FP) PO SCH (22:09)
[2019-12-29] MEDS: MIRTAZAPINE 15 MG TABLET (FP) PO SCH (22:09)
[2019-12-29] MEDS: MELATONIN 5 MG TABLETS PO PRN (22:09)
[2019-12-30] MEDS ORDERED: chlordiazePOXIDE HCL 10 MG CAPSULE PO PRN
[2019-12-30] MEDS ORDERED: chlordiazePOXIDE HCL 10 MG CAPSULE PO SCH (05:00)
[2019-12-30] MEDS ORDERED: LORazepam 0.5 MG TABLET PO SCH (05:00)
[2019-12-30] MEDS ORDERED: LORazepam 1 MG TABLET PO SCH (05:00)
[2019-12-30] MEDS: hydrOXYzine PAMOATE 25 MG CAPSULE (FP) PO SCH ×2 (06:03→09:25)
[2019-12-30] MEDS: INSULIN (NOVOLOG) ASPART 100 UNITS/ML 10ML VIAL SQ SCH (06:04)
[2019-12-30] MEDS: NICOTINE 14 MG/24 HOURS TOPICAL PATCH TD SCH (09:24)
[2019-12-30] MEDS: PRENATAL VITAMINS W/ FOLIC ACID TABLET (FP) PO SCH (09:24)
[2019-12-30] MEDS: ASPIRIN 81 MG CHEWABLE TABLETS PO SCH (09:24)
[2019-12-30] MEDS: METOPROLOL TARTRATE 25 MG TABLET (FP) PO SCH (09:24)
[2019-12-30] MEDS: PANTOPRAZOLE 40 MG TABLET PO SCH (09:24)
[2019-12-30 10:09] VITALS: BP 138/99; PULSE 107; TEMP 98.4
--- NOTE | 2019-12-30 11:59 | PN ---
S CIWA - CIWA Score Nausea/Vomitin-No Nausea/No Vomiting Muscle Tremors: None Anxiety: 1-Mildly Anxious Agitation: 2 Paroxysmal Sweats: No Perspiration Orientation: 0-Oriented Tacttile Disturbances: 0-None Auditory Disturbances: 0-None Visual Disturbances: 0-None Headache: 0-None Present CIWA-Ar Total Score: 3 BHS Progress Note (SOAP) Subjective: Denies any new complaints except mild anxiety . Objective: 12/30/19 11:57 Vital Signs 12/30/19 12/30/19 06:55 08:49 Temperature 98.1 F 98.4 F Pulse Rate 106 H 107 H Respiratory 18 18 Rate Blood Pressure 136/83 138/99 O2 Sat by Pulse 99 97 Oximetry (%) Laboratory Last Values WBC 3.3 K/mm3 (4.0-10.0) L 12/27/19 15:00 RBC 4.21 M/mm3 (4.00-5.60) 12/27/19 15:00 Hgb 12.7 GM/dL (11.7-16.9) 12/27/19 15:00 Hct 37.7 % (35.4-49) 12/27/19 15:00 MCV 89.5 fl (80-96) 12/27/19 15:00 MCH 30.2 pg (25.7-33.7) 12/27/19 15:00 MCHC 33.8 g/dl (32.0-35.9) 12/27/19 15:00 RDW 17.4 % (11.9-15.9) H 12/27/19 15:00 Plt Count 182 K/MM3 (134-434) 12/27/19 15:00 MPV 8.6 fl (7.5-11.1) 12/27/19 15:00 PT with INR 12.40 SEC (9.7-13.0) 12/29/19: INR 1.05 (0.83-1.09) 12/29/19 07:20 Sodium 137 mmol/L (136-145) 12/29/19 07:05 Potassium 3.6 mmol/L (3.5-5.1) 12/29/19 07:05 Chloride 102 mmol/L (98-107) 12/29/19 07:05 Carbon Dioxide 28 mmol/L (21-32) 12/29/19 07:05 Anion Gap 7 MMOL/L (8-16) L 12/29/19 07:05 BUN 4.8 mg/dL (7-18) L 12/29/19 07:05 Creatinine 0.6 mg/dL (0.55-1.3) 12/29/19 07:05 Est GFR (CKD-EPI)AfAm 140.73 12/29/19 07:05 Est GFR (CKD-EPI)NonAf 121.43 12/29/19 07:05 POC Glucometer 194 UNITS (80-120) 12/30/19 06:02 Random Glucose 223 mg/dL (74-106) H 12/29/19 07:05 Calcium 7.4 mg/dL (8.5-10.1) L 12/29/19 07:05 Total Bilirubin 0.8 mg/dL (0.2-1) 12/29/19 07:05 AST 316 U/L (15-37) H 12/29/19 07:05 ALT 127 U/L (13-61) H 12/29/19 07:05 Alkaline Phosphatase 194 U/L (45-117) H 12/29/19 07:05 Total Protein 6.3 g/dl (6.4-8.2) L 12/29/19 07:05 Albumin 3.0 g/dl (3.4-5.0) L 12/29/19 07:05 Syphilis Serology Non-reactive (NONREACTIVE) 12/27/19 15:00 COVID-19 (NAVEEN) Not detected (Not Detected) 12/27/19 08:50 HIV Ag/Ab Combo Qual Negative (NEGATIVE) 12/27/19 15:00 Labs noted. Assessment: 12/30/19 11:57 Alert and oriented x3, in no acute respiratory distress. Full ROM, ambulating in the unit. For discharge today. Plan: Discharge home today.
--- NOTE | 2019-12-30 12:13 | DS ---
[facility] Detox Discharge Summary Admission Date: 12/27/19 Discharge Date: 12/30/19 - History Present History: Alcohol Dependence Additional Comments: Alert and oriented x3, in no acute respiratory distress. Full ROM, ambulating in the unit. Completed detox protocol and stable for detox today. Vital Signs 12/30/19 12/30/19 06:55 08:49 Temperature 98.1 F 98.4 F Pulse Rate 106 H 107 H Respiratory 18 18 Rate Blood Pressure 136/83 138/99 O2 Sat by Pulse 99 97 Oximetry (%) Laboratory Last Values WBC 3.3 K/mm3 (4.0-10.0) L 12/27/19 15:00 RBC 4.21 M/mm3 (4.00-5.60) 12/27/19 15:00 Hgb 12.7 GM/dL (11.7-16.9) 12/27/19 15:00 Hct 37.7 % (35.4-49) 12/27/19 15:00 MCV 89.5 fl (80-96) 12/27/19 15:00 MCH 30.2 pg (25.7-33.7) 12/27/19 15:00 MCHC 33.8 g/dl (32.0-35.9) 12/27/19 15:00 RDW 17.4 % (11.9-15.9) H 12/27/19 15:00 Plt Count 182 K/MM3 (134-434) 12/27/19 15:00 MPV 8.6 fl (7.5-11.1) 12/27/19 15:00 PT with INR 12.40 SEC (9.7-13.0) 12/29/19 07:20 INR 1.05 (0.83-1.09) 12/29/19 07:20 Sodium 137 mmol/L (136-145) 12/29/19 07:05 Potassium 3.6 mmol/L (3.5-5.1) 12/29/19 07:05 Chloride 102 mmol/L (98-107) 12/29/19 07:05 Carbon Dioxide 28 mmol/L (21-32) 12/29/19 07:05 Anion Gap 7 MMOL/L (8-16) L 12/29/19 07:05 BUN 4.8 mg/dL (7-18) L 12/29/19 07:05 Creatinine 0.6 mg/dL (0.55-1.3) 12/29/19 07:05 Est GFR (CKD-EPI)AfAm 140.73 12/29/19 07:05 Est GFR (CKD-EPI)NonAf 121.43 12/29/19 07:05 POC Glucometer 194 UNITS (80-120) 12/30/19 06:02 Random Glucose 223 mg/dL (74-106) H 12/29/19 07:05 Calcium 7.4 mg/dL (8.5-10.1) L 12/29/19 07:05 Total Bilirubin 0.8 mg/dL (0.2-1) 12/29/19 07:05 AST 316 U/L (15-37) H 12/29/19 07:05 ALT 127 U/L (13-61) H 12/29/19 07:05 Alkaline Phosphatase 194 U/L (45-117) H 12/29/19 07:05 Total Protein 6.3 g/dl (6.4-8.2) L 12/29/19 07:05 Albumin 3.0 g/dl (3.4-5.0) L 12/29/19 07:05 Syphilis Serology Non-reactive (NONREACTIVE) 12/27/19 15:00 COVID-19 (NAVEEN) Not detected (Not Detected) 12/27/19 08:50 HIV Ag/Ab Combo Qual Negative (NEGATIVE) 12/27/19 15:00 labs noted. Pertinent Past History: History of DM, HTN, Pancreatitis, depression, alcohol and nicotine use disorder. - Physical Exam Results Vital Signs: Vital Signs Temperature 98.4 F 12/30/19 08:49 Pulse Rate 107 H 12/30/19 08:49 Respiratory Rate 18 12/30/19 08:49 Blood Pressure 138/99 12/30/19 08:49 O2 Sat by Pulse Oximetry (%) 97 12/30/19 08:49 Pertinent Admission Physical Exam Findings: withdrawal symptoms. - Treatment Hospital Course: Detox Protocol Followed, Detoxed Safely, Responded well, Discharged Condition Good - Medication Discharge Medications: Ambulatory Orders Magnesium Oxide [Mag-Ox -] 400 mg PO DAILY 09/08/18 Metformin HCl [Glucophage] 1,000 mg PO BID #60 tablet 10/03/18 Doxepin HCl [Sinequan -] 50 mg PO HS 02/09/19 Escitalopram Oxalate [Lexapro -] 20 mg PO DAILY 02/09/19 Glipizide [Glucotrol -] 20 mg PO BIDAC 02/09/19 Insulin (Novolog) [Novolog] 10 units SQ BIDAC 02/09/19 Aspirin [ASA -] 81 mg PO DAILY #30 tab.chew 07/07/19 Atorvastatin Ca [Lipitor] 40 mg PO HS #30 tablet 07/07/19 Canagliflozin [Invokana] 300 mg PO DAILY #30 tablet 07/07/19 Metoprolol Tartrate [Lopressor -] 25 mg PO BID #60 tablet 07/07/19 Pantoprazole Sodium [Protonix -] 40 mg PO DAILY #30 tablet.ec 07/07/19 - Diagnosis (1) Alcohol dependence with withdrawal, uncomplicated Current Visit: Yes Status: Acute (2) Dyslipidemia Current Visit: Yes Status: Chronic (3) Nicotine dependence Current Visit: Yes Status: Chronic Qualifiers: Nicotine product type: cigarettes Substance use status: uncomplicated Qualified Code(s): F17.210 - Nicotine dependence, cigarettes, uncomplicated (4) Type II diabetes mellitus Current Visit: Yes Status: Chronic Qualifiers: Diabetes mellitus intermission coordinator insulin use: without care home use Diabetes mellitus complication status: without complication Qualified Code(s): E11.9 - Type 2 diabetes mellitus without complications (5) Pancreatitis Current Visit: Yes Status: Resolved - AMA Did Patient Leave Against Medical Advice: No
[2019-12-30 13:16] LABS: URINE APPEARANCE CLEAR; URINE BILIRUBIN NEGATIVE (NEGATIVE); URINE GLUCOSE (UA) NEGATIVE (NEGATIVE)
[2019-12-30 13:17] LABS: URINE KETONE TRACE (NEGATIVE)
[2019-12-30 13:18] LABS: URINE LEUK ESTERASE NEGATIVE (NEGATIVE); URINE NITRITE NEGATIVE (NEGATIVE); URINE PROTEIN 3+ (NEGATIVE)
[2019-12-30 13:23] LABS: EPI CELLS 8 /uL (0-25.1); HYALINE CASTS 2 /uL (0-3.1); URINE BACTERIA 1 /uL (0-1359); URINE COLOR DK YELLOW; URINE WBC 1 /uL (0-25.8)
[2019-12-31] MEDS ORDERED: LORazepam 0.5 MG TABLET PO PRN ×2
[2019-12-31] MEDS ORDERED: LORazepam 0.5 MG TABLET PO SCH (05:00)
[2019-12-31] MEDS ORDERED: chlordiazePOXIDE HCL 10 MG CAPSULE PO SCH (05:00)
[2019-12-31] MEDS ORDERED: LORazepam 0.5 MG TABLET PO ONE (05:00)
[2020-01-01] MEDS ORDERED: chlordiazePOXIDE HCL 10 MG CAPSULE PO ONE (05:00)
[2020-01-01] MEDS ORDERED: LORazepam 0.5 MG TABLET PO ONE (05:00)
== END 2019-12-30 10:16 | disposition home or self-care (01) | DRG 775 ==
LOC: YASAS 14:10 → Y5N DETOX 15:13
PROVIDERS: ADMIT Allergy & Immunology; ATTEND Allergy & Immunology
PROC: HZ2ZZZZ Detoxification Services for Substance Abuse Treatment (ICD-10-PCS; principal; 2019-12-27)
DX: F10.230 Alcohol dependence with withdrawal, uncomplicated (principal); F17.210 Nicotine dependence, cigarettes, uncomplicated; F10.24 Alcohol dependence with alcohol-induced mood disorder; F10.282 Alcohol dependence with alcohol-induced sleep disorder; F32.9 Major depressive disorder, single episode, unspecified; I10 Essential (primary) hypertension; E11.9 Type 2 diabetes mellitus without complications; Z79.84 Long term (current) use of oral hypoglycemic drugs; E78.5 Hyperlipidemia, unspecified; R74.0 Nonspecific elevation of levels of transaminase and lactic acid dehydrogenase [LDH]; Z86.718 Personal history of other venous thrombosis and embolism; Z87.19 Personal history of other diseases of the digestive system; Z88.5 Allergy status to narcotic agent; Z88.8 Allergy status to other drugs, medicaments and biological substances; Z56.0 Unemployment, unspecified
CPT/HCPCS: 36415; 80053; 81003; 82962; 85027; 85610; 86780; 87389; J0735; U0003

== ENCOUNTER 2020-01-17 19:14 | Emergency (ER) | payer OTHER ==
--- NOTE | 2020-01-17 19:19 | PDOC ---
Rapid Medical Evaluation Time Seen by Provider: 01/17/20 19:18 Medical Evaluation: Allergies Allergy/AdvReac Type Severity Reaction Status Date / Time morphine Allergy Intermediate Itching Verified 12/27/19 14:52 KELLY Inhibitors AdvReac Mild Cough Verified 12/27/19 14:52 01/17/20 19:18 I have performed a brief in-person evaluation of this patient. CC: "I am withdrawing from alcohol." Drinks 1 liter ETOH daily x1 week. Last ETOH 12 hours ago. PMHx-IDDM PE: No focal findings. Orders: labs Patient to proceed to ED for further evaluation. Discharge Disposition - Diagnosis Alcohol dependence - Referrals - Patient Instructions - Post Discharge Activity
[2020-01-17] MEDS ORDERED: SODIUM CHLORIDE 1,000 ML IV STA (19:20)
[2020-01-17 19:28] VITALS: TEMP 98.5; BMI 28.0
[2020-01-17] MEDS ORDERED: chlordiazePOXIDE HCL 25 MG CAPSULE PO ONE (20:31)
[2020-01-17] MEDS ORDERED: ACETAMINOPHEN INJECTION 100 ML IVPB ONE (20:38)
[2020-01-17] MEDS ORDERED: CLINDAMYCIN 600MG PREMIX IVPB 600 MG/50 ML BAG IVPB ONE (20:38)
[2020-01-17] MEDS ORDERED: chlordiazePOXIDE HCL 25 MG CAPSULE ONE (21:02)
[2020-01-17] MEDS ORDERED: LORazepam 2 MG/ML SDV VIAL ONE ×2 (21:02→22:39)
[2020-01-17 21:31] LABS: INR 1.08 (0.83-1.09); PROTHROMBIN TIME (PATIENT) 12.8 SEC (9.7-13.0)
--- NOTE | 2020-01-17 21:37 | PDOC ---
History of Present Illness - History of Present Illness Initial Comments: 44 yo male with PMH of alcohol dependence with previous DT, DM, HTN, HLD comes in for alcohol withdrawal management. He has been on an alcohol binge for the last week. His last drink was 12 hours ago. He currently endorses tremors, diaphoresis, nausea, vomiting, anxiety. He denies cp, sob, visual/auditory disturbances. CIWA score of 9. <Caitlin Mcallister - Last Filed: 01/19/20 13:09> <Talia Shepard - Last Filed: 01/20/20 19:21> - General Chief Complaint: Tachycardia Stated Complaint: INTOXICATION Time Seen by Provider: 01/17/20 19:18 Past History - Medical History Anemia: No Asthma: No Cancer: No Cardiac Disorders: No CVA: No COPD: No CHF: No Dementia: No Diabetes: Yes GI Disorders: No Disorders: No HTN: Yes Hypercholesterolemia: Yes Kidney Stones: No Liver Disease: Yes (fatty liver) Seizures: No Thyroid Disease: No - Surgical History Abdominal Surgery: No Appendectomy: No Cardiac Surgery: No Cholecystectomy: No Lung Surgery: No Neurologic Surgery: No Orthopedic Surgery: No - Reproductive History Testicular Surgery: No - Psycho-Social/Smoking History Smoking History: Never smoked Have you smoked in the past 12 months: Yes Number of Cigarettes Smoked Daily: 10 If you are a former smoker, when did you quit?: 2009 Cigars Per Day: 0 'Breaking Loose' booklet given: 12/27/19 - Substance Abuse Hx (Audit-C & DAST Scrn) How often the patient has a drink containing alcohol: 4 0r more times/wk Number of drinks the patient has on a typical day: 10 or more How often the patient has six or more drinks on one occasion: Daily or almost daily Score: In Men: 4 or > Positive; In Women: 3 or > Positive: 12 Screen Result (Pos requires Nsg. Audit-10AR): Positive In the last yr the pt used illegal drug/Rx for NonMed reason: No Score: Yes response is considered Positive: 0 Screen Result (Positive result requires Nsg. DAST-10): Negative <Caitlin Mcallister - Last Filed: 01/19/20 13:09> <Talia Shepard - Last Filed: 08/01/20 19:21> - Medical History Allergies/Adverse Reactions: Allergies Allergy/AdvReac Type Severity Reaction Status Date / Time morphine Allergy Intermediate Itching Verified 12/27/19 14:52 KELLY Inhibitors AdvReac Mild Cough Verified 12/27/19 14:52 Home Medications: Ambulatory Orders Magnesium Oxide [Mag-Ox -] 400 mg PO DAILY 09/08/18 Metformin HCl [Glucophage] 1,000 mg PO BID #60 tablet 10/03/18 Doxepin HCl [Sinequan -] 50 mg PO HS 02/09/19 Escitalopram Oxalate [Lexapro -] 20 mg PO DAILY 02/09/19 Glipizide [Glucotrol -] 20 mg PO BIDAC 02/09/19 Insulin (Novolog) [Novolog] 10 units SQ BIDAC 02/09/19 Aspirin [ASA -] 81 mg PO DAILY #30 tab.chew 07/07/19 Atorvastatin Ca [Lipitor] 40 mg PO HS #30 tablet 07/07/19 Canagliflozin [Invokana] 300 mg PO DAILY #30 tablet 07/07/19 Metoprolol Tartrate [Lopressor -] 25 mg PO BID #60 tablet 07/07/19 Pantoprazole Sodium [Protonix -] 40 mg PO DAILY #30 tablet.ec 07/07/19 Review of Systems - Review of Systems Constitutional: Yes: Diaphoresis. No: Chills, Fever HEENTM: No: Recent change in vision, Double Vision Respiratory: No: Cough, Shortness of Breath Cardiac (ROS): No: Chest Pain, Lightheadedness, Palpitations ABD/GI: Yes: Nausea, Poor Appetite, Poor Fluid Intake, Vomiting. No: Diarrhea : No: Burning, Discharge, Frequency Musculoskeletal: No: Joint Pain, Muscle Weakness Integumentary: No: Erythema, Flushing, Lesions Neurological: Yes: Headache. No: Seizure, Tingling, Tremors Psychiatric: No: Anxiety, Depression, Mood Swings Endocrine: No: Intolerance to Cold, Intolerance to Heat, Unexplained Weight Gain Hematologic/Lymphatic: No: Easy Bruising, Bleeding Diathesis <Zeftawi,Bilal - Last Filed: 01/19/20 13:09> *Physical Exam - Vital Signs Last Vital Signs Temp Pulse Resp BP Pulse Ox 98.5 F 130 H 19 148/103 H 99 01/17/20 19:25 01/17/20 19:25 01/17/20 19:25 01/17/20 19:25 01/17/20 19:25 - Physical Exam General Appearance: Yes: Nourished, Appropriately Dressed. No: Apparent Distress HEENT: positive: EOMI, NOAH, Normal Voice Neck: negative: Tender, Rigid Respiratory/Chest: positive: Lungs Clear, Normal Breath Sounds. negative: Respiratory Distress Cardiovascular: positive: Regular Rhythm, Regular Rate, S1, S2 Gastrointestinal/Abdominal: positive: Normal Bowel Sounds, Flat, Soft. negative: Tender Musculoskeletal: positive: Normal Inspection. negative: CVA Tenderness Extremity: positive: Normal Capillary Refill, Normal Inspection, Normal Range of Motion Integumentary: positive: Normal Color, Dry, Warm Neurologic: positive: Fully Oriented, Alert, Normal Mood/Affect <Caitlin Mcallister - Last Filed: 01/19/20 13:09> - Vital Signs Last Vital Signs Temp Pulse Resp BP Pulse Ox 98.5 F 98 H 19 138/88 99 01/17/20 19:25 01/18/20 09:01 01/18/20 09:01 01/18/20 09:01 01/18/20 09:01 <Talia Shepard - Last Filed: 01/20/20 19:21> ED Treatment Course - LABORATORY CBC & Chemistry Diagram: 01/17/20 22:00 01/17/20 22:00 - ADDITIONAL ORDERS Additional order review: Laboratory Results 01/17/20 21:00 PT with INR 12.80 INR 1.08 - Medications Given in the ED: ED Medications Discontinued Medications Generic Name Dose Route Start Last Admin Trade Name Dayanara PRN Reason Stop Dose Admin Chlordiazepoxide HCl 50 mg 01/17/20 20:31 01/17/20 21:06 Librium - PO 01/17/20 20:32 50 mg ONCE ONE Administration Sodium Chloride 1,000 mls @ 1,000 mls/hr 01/17/20 19:20 01/17/20 21:04 Normal Saline - IV 01/17/20 20:19 1,000 mls/hr .Q1H STA Administration Lorazepam 2 mg 01/17/20 20:51 01/17/20 21:06 Ativan Injection - IVPUSH 01/17/20 20:52 2 mg ONCE ONE Administration <Caitlin Mcallister - Last Filed: 01/19/20 13:09> - LABORATORY CBC & Chemistry Diagram: 01/17/20 22:00 01/17/20 22:00 - ADDITIONAL ORDERS Additional order review: 01/17/20 22:00 RBC 4.48 MCV 91.0 MCHC 33.0 RDW 16.3 H MPV 9.9 D Neutrophils % 47.6 D Lymphocytes % 43.1 H Monocytes % 5.9 Eosinophils % 0.4 Basophils % 3.0 H D - RADIOLOGY Radiology Studies Ordered: Category Date Time Status ABDOMEN US -LIMITED [US] Stat Ultrasound 01/18/20 00:40 Completed - Medications Given in the ED: ED Medications Discontinued Medications Generic Name Dose Route Start Last Admin Trade Name Freq PRN Reason Stop Dose Admin Chlordiazepoxide HCl 50 mg 01/17/20 20:31 01/17/20 21:06 Librium - PO 01/17/20 20:32 50 mg ONCE ONE Administration Chlordiazepoxide HCl 50 mg 01/18/20 04:39 01/18/20 05:22 Librium - PO 01/18/20 04:40 50 mg ONCE ONE Administration Sodium Chloride 1,000 mls @ 1,000 mls/hr 01/17/20 19:20 01/17/20 21:04 Normal Saline - IV 01/17/20 20:19 1,000 mls/hr .Q1H STA Administration Folic Acid 1 mg/ Thiamine HCl 1,000 mls @ 125 mls/hr 01/17/20 23:27 01/18/20 01:59 100 mg/ Multivitamins/Minerals IVPB 01/18/20 07:26 125 mls/hr 10 ml/ Sodium Chloride ONCE ONE Administration Lactated Ringer's 1,000 ml 01/17/20 23:27 01/17/20 23:28 Lactated Ringers Solution IV 01/17/20 23:28 1,000 ml ONCE ONE Administration Lactated Ringer's 1,000 ml 01/18/20 01:37 01/18/20 02:00 Lactated Ringers Solution IV 01/18/20 01:38 1,000 ml ONCE ONE Administration Lorazepam 2 mg 01/17/20 20:51 01/17/20 21:06 Ativan Injection - IVPUSH 01/17/20 20:52 2 mg ONCE ONE Administration Lorazepam 4 mg 01/17/20 22:27 01/17/20 22:35 Ativan Injection - IVPUSH 01/17/20 22:28 4 mg ONCE ONE Administration Lorazepam 8 mg 01/17/20 23:25 01/17/20 23:28 Ativan Injection - IVPUSH 01/17/20 23:26 Not Given ONCE ONE Lorazepam 4 mg 01/18/20 01:36 01/18/20 02:00 Ativan Injection - IVPUSH 01/18/20 01:37 4 mg ONCE ONE Administration Lorazepam 4 mg 01/18/20 04:38 01/18/20 05:22 Ativan Injection - IVPUSH 01/18/20 04:39 4 mg ONCE ONE Administration Ondansetron HCl 4 mg 01/18/20 01:36 01/18/20 02:00 Zofran Injection IVPUSH 01/18/20 01:37 4 mg ONCE ONE Administration <Talia Shepard - Last Filed: 01/20/20 19:21> Medical Decision Making - Medical Decision Making 44 yo male with PMH of alcohol dependence with previous DT, DM, HTN, HLD comes in for alcohol withdrawal management. CIWA score of 9. Pt is given 1L IV fluid Pt is given Acetaminophen Pt is given Librium and Ativan Pt wants to receive detox at [facility] is currently full and will be accepting patients at 7am. Pt signed out to night team. 01/17/20 21:57 <Caitlin Mcallister - Last Filed: 01/19/20 13:09> Discharge - Discharge Information Problems reviewed: Yes - Admission No <Caitlin Mcallister - Last Filed: 01/19/20 13:09> <Talia Shepard - Last Filed: 01/20/20 19:21> - Discharge Information Clinical Impression/Diagnosis: Alcohol dependence Qualifiers: Substance use status: uncomplicated Qualified Code(s): F10.20 - Alcohol dependence, uncomplicated Alcohol withdrawal Qualifiers: Complication of substance-induced condition: uncomplicated Qualified Code(s): F10.230 - Alcohol dependence with withdrawal, uncomplicated Condition: Stable Disposition: HOME - Follow up/Referral Referrals: Ye Robledo MD [Staff Physician] - - Patient Discharge Instructions Patient Printed Discharge Instructions: DI for Drug or Alcohol Withdrawal Additional Instructions: You were seen in the Emergency Department for evaluation of alcohol withdrawal. Your labs were unremarkable. There are no beds currently available at [facility]. Contact information was provided. Call or show up tomorrow morning at 8:00AM. You have desired to be discharged and are arranging yourself detox intake at [facility]. You are currently arranging this yourself and can be discharged at this time. Review the handouts provided at discharge. Return to the Emergency Department if you develop fevers, chest pain, trouble breathing, tremors, worsening symptoms, or any new/[place] [address]
--- NOTE | 2020-01-17 21:46 | PDOC ---
Attending Attestation - Resident Resident Name: Caitlin Mcallister - ED Attending Attestation I have performed the following: I have examined & evaluated the patient, The case was reviewed & discussed with the resident, I agree w/resident's findings & plan - HPI HPI: 01/17/20 21:47 44 yo male with PMH of alcohol dependence with previous DT, DM, HTN, HLD comes in for alcohol withdrawal management. He has been on an alcohol binge for the last week. His last drink was 12 hours ago. He currently endorses tremors, diaphoresis, nausea, vomiting, anxiety. He denies cp, sob, visual/auditory disturbances. pt usually drinks vodka 1L/day. he states he was maybe sober x 1 month, and resumed drinking ETOH about 3 weeks ago and relapsed. - Physicial Exam PE: 01/17/20 21:42 General: Well appearing, awake and alert, NAD. HEENT: NCAT, PERRL, EOMI, clear conjunctiva, anicteric, moist mucous membranes, clear oropharynx, no oral lesions.. Neck: neck supple, FROM Resp: CTAB, normal and even respirations, no respiratory distress CVS: tachycardic, no murmurs, 2+ peripheral pulses throughout, no peripheral edema Abdomen: soft, NTND, no rebound or guarding. No CVAT. Back: nontender, normal inspection and ROM] MSK: no edema, MCDONALD x4, ROM intact. No clubbing or cyanosis. normal bulk and tone. Extremities: no calf tenderness Neuro: alert, oriented appropriately; no focal neurologic deficits, speech eva ar. no tremors. Skin: warm and well perfused, cap refill <2 sec, normal color - Medical Decision Making 01/17/20 21:41 Vital Signs Temp Pulse Resp BP Pulse Ox 98.5 F 130 H 19 148/103 H 99 01/17/20 19:25 01/17/20 19:25 01/17/20 19:25 01/17/20 19:25 01/17/20 19:25 vitals reviewed afebrile tachy and hypertensive likely in early acute alcohol w/d, last drink at 9AM this morning, as he usually drinks 1L of vodka/hard liquor daily. pt does not appear clinically intoxicated,as he is sober, clear speech, normal sensorium, gait is stable and well appearing 01/17/20 21:42 given ativan/librium for mild alcohol w/d syndrome no delirium no systemic findings no abdominal sx no cp or sob covid 19 swab as courtesy for [facility] pt requests detox, he is appropriate for [facility] transfer once medically stable 01/18/20 00:42 Laboratory results reviewed, normal coags and CBC, no evidence of anemia. There is mild anion gap elevation of 17 likely from her nausea/vomiting. Patient does not appear to be in DKA. LFTs are noted to be elevated with AST significantly greater than ALT by factor of 3. Abdomen Limited ultrasound is indicated to evaluate for gallbladder versus liver pathology Patient has been receiving benzos for mild alcohol withdrawal and responding appropriately will continue to monitor in the ED. 01/18/20 01:37 abdomen sono neg for acute pathology, fatty liver is noted prior LFTS have been elevated to similar levels so likely chronic additional ativan, IVF, zofran for nausea,, AM librium no acute events, no e/o hallucinosis or delirium. AM transfer to [facility], d/w [facility] intake, transfer at 8AM - nm to manage mild etoh w/d 01/18/20 06:55 01/18/20 06:55 Heart Score/ECG Review #1 ECG reviewed & interpreted by me at: 20:20 General ECG Interpretation: Sinus Rhythm, Normal Intervals 01/17/20 21:45 EKG sinus tachycardia 119 bpm, borderline QTC prolongation, 480 ms narrow QRS, ST and T wave segments and morphology normal. Nonspecific T wave abnormalities likely rate related Discharge - Discharge Information Problems reviewed: Yes Clinical Impression/Diagnosis: Alcohol dependence Qualifiers: Substance use status: uncomplicated Qualified Code(s): F10.20 - Alcohol dependence, uncomplicated Alcohol withdrawal Qualifiers: Complication of substance-induced condition: uncomplicated Qualified Code(s): F10.230 - Alcohol dependence with withdrawal, uncomplicated Condition: Stable - Follow up/Referral Referrals: Ye Robledo MD [Staff Physician] - - Patient Discharge Instructions Patient Printed Discharge Instructions: DI for Drug or Alcohol Withdrawal Additional Instructions: You were seen in the Emergency Department for evaluation of alcohol withdrawal. Your labs were unremarkable. There are no beds currently available at [facility]. Contact information was provided. Call or show up tomorrow morning at 8:00AM. Review the handouts provided at discharge. Return to the Emergency Department if you develop fevers, chest pain, trouble breathing, tremors, worsening symptoms, or any new/[place] [address] - Post Discharge Activity Vital Signs - Vital Signs Pulse Rate: 112 Respiratory Rate: 20 Blood Pressure: 143/91 Blood Pressure position: Supine
--- NOTE | 2020-01-17 22:13 | PDOC ---
*Physical Exam - Vital Signs Last Vital Signs Temp Pulse Resp BP Pulse Ox 98.5 F 112 H 20 143/91 97 01/17/20 19:25 01/18/20 06:56 01/18/20 06:56 01/18/20 06:56 01/18/20 06:07 <Nya Teran - Last Filed: 01/18/20 08:41> - Vital Signs Last Vital Signs Temp Pulse Resp BP Pulse Ox 98.5 F 130 H 19 148/103 H 99 01/17/20 19:25 01/17/20 19:25 01/17/20 19:25 01/17/20 19:25 01/17/20 19:25 <Cooper Hough - Last Filed: 01/22/20 09:05> ED Treatment Course - LABORATORY CBC & Chemistry Diagram: 01/17/20 22:00 01/17/20 22:00 - ADDITIONAL ORDERS Additional order review: Laboratory Results 01/17/20 01/17/20 01/17/20 22:00 21:00 20:30 PT with INR 12.80 INR 1.08 PTT (Actin FS) 34.0 Sodium 134 L Potassium 4.9 Chloride 93 L Carbon Dioxide 24 Anion Gap 17 H BUN 7.1 Creatinine 0.8 Est GFR (CKD-EPI)AfAm 125.04 Est GFR (CKD-EPI)NonAf 107.88 Random Glucose 217 H Calcium 6.8 L* Total Bilirubin 0.6 AST 383 H ALT 115 H Alkaline Phosphatase 223 H Total Protein 7.8 Albumin 3.4 Lipase 59 L Beta-Hydroxybutyrate 7.7 H 01/17/20 22:00 RBC 4.48 MCV 91.0 MCHC 33.0 RDW 16.3 H MPV 9.9 D Neutrophils % 47.6 D Lymphocytes % 43.1 H Monocytes % 5.9 Eosinophils % 0.4 Basophils % 3.0 H D - Medications Given in the ED: ED Medications Discontinued Medications Generic Name Dose Route Start Last Admin Trade Name Freq PRN Reason Stop Dose Admin Chlordiazepoxide HCl 50 mg 01/17/20 20:31 01/17/20 21:06 Librium - PO 01/17/20 20:32 50 mg ONCE ONE Administration Chlordiazepoxide HCl 50 mg 01/18/20 04:39 01/18/20 05:22 Librium - PO 01/18/20 04:40 50 mg ONCE ONE Administration Sodium Chloride 1,000 mls @ 1,000 mls/hr 01/17/20 19:20 01/17/20 21:04 Normal Saline - IV 01/17/20 20:19 1,000 mls/hr .Q1H STA Administration Folic Acid 1 mg/ Thiamine HCl 1,000 mls @ 125 mls/hr 01/17/20 23:27 01/18/20 01:59 100 mg/ Multivitamins/Minerals IVPB 01/18/20 07:26 125 mls/hr 10 ml/ Sodium Chloride ONCE ONE Administration Lactated Ringer's 1,000 ml 01/17/20 23:27 01/17/20 23:28 Lactated Ringers Solution IV 01/17/20 23:28 1,000 ml ONCE ONE Administration Lactated Ringer's 1,000 ml 01/18/20 01:37 01/18/20 02:00 Lactated Ringers Solution IV 01/18/20 01:38 1,000 ml ONCE ONE Administration Lorazepam 2 mg 01/17/20 20:51 01/17/20 21:06 Ativan Injection - IVPUSH 01/17/20 20:52 2 mg ONCE ONE Administration Lorazepam 4 mg 01/17/20 22:27 01/17/20 22:35 Ativan Injection - IVPUSH 01/17/20 22:28 4 mg ONCE ONE Administration Lorazepam 8 mg 01/17/20 23:25 01/17/20 23:28 Ativan Injection - IVPUSH 01/17/20 23:26 Not Given ONCE ONE Lorazepam 4 mg 01/18/20 01:36 01/18/20 02:00 Ativan Injection - IVPUSH 01/18/20 01:37 4 mg ONCE ONE Administration Lorazepam 4 mg 01/18/20 04:38 01/18/20 05:22 Ativan Injection - IVPUSH 01/18/20 04:39 4 mg ONCE ONE Administration Ondansetron HCl 4 mg 01/18/20 01:36 01/18/20 02:00 Zofran Injection IVPUSH 01/18/20 01:37 4 mg ONCE ONE Administration <Nya Teran - Last Filed: 01/18/20 08:41> - LABORATORY CBC & Chemistry Diagram: 01/17/20 22:00 01/17/20 22:00 - ADDITIONAL ORDERS Additional order review: Laboratory Results 01/17/20 21:00 PT with INR 12.80 INR 1.08 PTT (Actin FS) 34.0 - Medications Given in the ED: ED Medications Discontinued Medications Generic Name Dose Route Start Last Admin Trade Name Dayanara PRN Reason Stop Dose Admin Chlordiazepoxide HCl 50 mg 01/17/20 20:31 01/17/20 21:06 Librium - PO 01/17/20 20:32 50 mg ONCE ONE Administration Sodium Chloride 1,000 mls @ 1,000 mls/hr 01/17/20 19:20 01/17/20 21:04 Normal Saline - IV 01/17/20 20:19 1,000 mls/hr .Q1H STA Administration Lorazepam 2 mg 01/17/20 20:51 01/17/20 21:06 Ativan Injection - IVPUSH 01/17/20 20:52 2 mg ONCE ONE Administration <Cooper Hough - Last Filed: 01/22/20 09:05> Medical Decision Making - Medical Decision Making Pt given Ativan 2mg IV once and Librium 50mg PO once initially Pt HR initially improved to 80s but but then pt HR increased to 116, will redose Ativan 4mg IV once and give Zofran 4mg IV once for nausea Will reassess 01/17/20 22:43 HR 112 Will give Ativan 4mg IV once and Librium 50mg PO once Pt given LRx2 and Banana Bag 01/18/20 04:47 Plan for D/C to [facility] for detox 01/18/20 05:50 Pt signed out to day team pending transfer to [facility] <Cooper Hough - Last Filed: 01/22/20 09:05> Discharge - Discharge Information Problems reviewed: Yes <Nya Teran - Last Filed: 01/18/20 08:41> - Discharge Information Problems reviewed: Yes <Cooper Hough - Last Filed: 01/22/20 09:05> - Discharge Information Clinical Impression/Diagnosis: Alcohol dependence Qualifiers: Substance use status: uncomplicated Qualified Code(s): F10.20 - Alcohol dependence, uncomplicated Alcohol withdrawal Qualifiers: Complication of substance-induced condition: uncomplicated Qualified Code(s): F10.230 - Alcohol dependence with withdrawal, uncomplicated Condition: Stable - Follow up/Referral Referrals: Ye Robledo MD [Staff Physician] - - Patient Discharge Instructions Patient Printed Discharge Instructions: DI for Drug or Alcohol Withdrawal Additional Instructions: You were seen in the Emergency Department for evaluation of alcohol withdrawal. Your labs were unremarkable. There are no beds currently available at [facility]. Contact information was provided. Call or show up tomorrow morning at 8:00AM. You have desired to be discharged and are arranging yourself detox intake at [facility]. You are currently arranging this yourself and can be discharged at this time. Review the handouts provided at discharge. Return to the Emergency Department if you develop fevers, chest pain, trouble breathing, tremors, worsening symptoms, or any new/[place] [address] Vital Signs - Vital Signs Pulse Rate: 112 <Cooper Hough - Last Filed: 01/22/20 09:05>
[2020-01-17 22:17] LABS: EOS % 0.4 % (0-4.5); HEMATOCRIT 40.7 % (35.4-49); HEMOGLOBIN 13.5 GM/dL (11.7-16.9); LYMPH % 43.1 % (8-40); MEAN PLT VOLUME 9.9 fl (7.5-11.1); MONO % 5.9 % (3.8-10.2); NEUT % 47.6 % (42.8-82.8); PLATELET COUNT 159 K/MM3 (134-434); RBC 4.48 M/mm3 (4.00-5.60); RDW 16.3 % (11.9-15.9); WHITE BLOOD COUNT 3.5 K/mm3 (4.0-10.0)
[2020-01-17 23:12] LABS: ALBUMIN 3.4 g/dl (3.4-5.0); BILIRUBIN,TOTAL 0.6 mg/dL (0.2-1); BLOOD UREA NITROGEN 7.1 mg/dL (7-18); CREATININE 0.8 mg/dL (0.55-1.3); POTASSIUM 4.9 mmol/L (3.5-5.1); TOT PROT 7.8 g/dl (6.4-8.2)
[2020-01-17] MEDS ORDERED: LACTATED RINGERS SOLUTION 1000 ML INFUS.BAG IV ONE (23:27)
[2020-01-17] MEDS ORDERED: FOLIC ACID INJECTION - 1 MG, THIAMINE HCL 100 MG, MULTIVIT INJECTION ADULT 10 ML in SOD... IVPB ONE (23:27)
[2020-01-17 23:28] LABS: CALCIUM 6.8 mg/dL (8.5-10.1)
[2020-01-18] MEDS ORDERED: ONDANSETRON 4 MG/2 ML VIAL IVPUSH ONE (01:36)
[2020-01-18] MEDS ORDERED: LACTATED RINGERS SOLUTION 1000 ML INFUS.BAG IV ONE (01:37)
[2020-01-18] MEDS ORDERED: LORazepam 2 MG/ML SDV VIAL ONE ×2 (01:39→05:16)
[2020-01-18] MEDS ORDERED: chlordiazePOXIDE HCL 25 MG CAPSULE PO ONE (04:39)
[2020-01-18] MEDS ORDERED: chlordiazePOXIDE HCL 25 MG CAPSULE ONE (05:16)
[2020-01-18 09:02] VITALS: BP 138/88
--- NOTE | 2020-01-18 11:30 | EKG ---
Test Reason : Blood Pressure : / mmHG Vent. Rate : 119 BPM Atrial Rate : 119 BPM P-R Int : 158 ms QRS Dur : 088 ms QT Int : 342 ms P-R-T Axes : 048 006 159 degrees QTc Int : 481 ms SINUS TACHYCARDIA T WAVE ABNORMALITY, CONSIDER LATERAL ISCHEMIA ABNORMAL ECG WHEN COMPARED WITH ECG OF 02-SEP-2018 23:35, NO SIGNIFICANT CHANGE WAS FOUND Confirmed by NOAM MATTHEW MD ([id number]) on 01/18/2020 11:30:40 AM Referred By: Confirmed By:NOAM MATTHEW MD
[2020-01-22 09:05] VITALS: PULSE 112
== END 2020-01-18 09:02 | disposition home or self-care (01) ==
LOC: JER 19:14
PROC: 3E03329 Introduction of Other Anti-infective into Peripheral Vein, Percutaneous Approach (ICD-10-PCS; principal; 2020-01-17)
PROC: 3E033GC Introduction of Other Therapeutic Substance into Peripheral Vein, Percutaneous Approach (ICD-10-PCS; 2020-01-17)
PROC: 3E0337Z Introduction of Electrolytic and Water Balance Substance into Peripheral Vein, Percutaneous Approach (ICD-10-PCS; 2020-01-17)
DX: F10.20 Alcohol dependence, uncomplicated (principal); F10.230 Alcohol dependence with withdrawal, uncomplicated
CPT/HCPCS: 36415; 76705-TC; 80053; 82010; 83690; 85025; 85610; 85730; 93005; 93010; 99285-25

== ENCOUNTER 2021-01-31 12:48 | Inpatient (IN) | payer OTHER ==
[2021-01-31 14:18] VITALS: BMI 28.9
[2021-01-31] MEDS ORDERED: diazePAM 5 MG TABLET PO ONE (14:59)
[2021-01-31] MEDS ORDERED: MAG HYDROX/AL HYDROX/SIMETH 30 ML UNIT-DOSE CUP PO PRN (14:59)
[2021-01-31] MEDS ORDERED: MAGNESIUM HYDROX 2400MG/30ML ORAL SUSPENSION 30 ML CUP PO PRN (14:59)
[2021-01-31] MEDS ORDERED: ACETAMINOPHEN 325 MG TABLET (FP) PO PRN ×2 (14:59)
[2021-01-31] MEDS ORDERED: MAGNESIUM CITRATE 300 ML BOTTLE PO PRN (14:59)
[2021-01-31] MEDS ORDERED: ONDANSETRON *ODT* 4 MG TABLET SL PRN (14:59)
[2021-01-31] MEDS ORDERED: METHOCARBAMOL 500 MG TABLET PO PRN (14:59)
[2021-01-31] MEDS ORDERED: BISMUTH SUBSALICYLATE 262 MG/15 ML BTL PO PRN (14:59)
[2021-01-31] MEDS ORDERED: MENTHOL/PHENOL 1 EACH UD MM PRN (14:59)
[2021-01-31] MEDS ORDERED: IBUPROFEN 400 MG TABLET (FP) PO PRN (14:59)
[2021-01-31] MEDS ORDERED: diazePAM 5 MG TABLET ONE (15:27)
[2021-01-31] MEDS: diazePAM 5 MG TABLET PO SCH ×2 (18:29→23:09)
[2021-01-31] MEDS: PANTOPRAZOLE 40 MG TABLET PO SCH (18:31)
[2021-01-31] MEDS: HYDROCHLOROTHIAZIDE 25 MG TABLET (FP) PO SCH (18:31)
[2021-01-31] MEDS: hydrOXYzine PAMOATE 25 MG CAPSULE (FP) PO SCH ×2 (18:31→23:10)
[2021-01-31] MEDS: PRENATAL VITAMINS W/ FOLIC ACID TABLET (FP) PO SCH (18:32)
[2021-01-31] MEDS: NICOTINE 14 MG/24 HOURS TOPICAL PATCH TD SCH (18:32)
[2021-01-31] MEDS ORDERED: INSULIN (LEVEMIR) 100 UNITS/ML UNITS SQ SCH (22:00)
[2021-01-31] MEDS ORDERED: PATIENT'S OWN MEDICATION (NON-FORMULARY) (Insulin Lispro [Admelog] 100 UNIT/ML Vial) SQ SCH (22:00)
[2021-01-31] MEDS: INSULIN (LEVEMIR) 100 UNITS/ML UNITS SQ SCH (23:06)
[2021-01-31] MEDS: INSULIN SLIDING SCALE (NOVOLOG) 1 VIAL SQ SCH (23:08)
[2021-01-31] MEDS: cloNIDine HCL 0.1 MG TABLET PO SCH (23:09)
[2021-01-31] MEDS: GABAPENTIN 300 MG CAPSULE PO SCH (23:09)
[2021-01-31] MEDS: ATORVASTATIN CA 40 MG TABLET (FP) PO SCH (23:10)
[2021-01-31] MEDS: MELATONIN 5 MG TABLETS PO SCH (23:10)
[2021-01-31] MEDS: THIAMINE HCL 100 MG TABLET (FP) PO SCH (23:10)
[2021-02-01] MEDS: hydrOXYzine PAMOATE 25 MG CAPSULE (FP) PO SCH ×5 (05:40→22:52)
[2021-02-01] MEDS: diazePAM 5 MG TABLET PO SCH ×4 (05:40→22:15)
[2021-02-01] MEDS: metFORMIN HCL 500 MG TABLET (FP) PO SCH ×2 (07:11→17:08)
[2021-02-01] MEDS: INSULIN SLIDING SCALE (NOVOLOG) 1 VIAL SQ SCH ×4 (08:10→22:16)
[2021-02-01 09:13] LABS: HEMATOCRIT 33.1 % (35.4-49); MCH 28.1 pg (25.7-33.7); MCHC 33.2 g/dl (32.0-35.9); MEAN CELL VOLUME 84.8 fl (80-96); MEAN PLT VOLUME 8.5 fl (7.5-11.1); PLATELET COUNT 203 10^3/uL (134-434); RBC 3.91 M/mm3 (4.00-5.60); RDW 17.7 % (11.9-15.9); WHITE BLOOD COUNT 2.6 K/mm3 (4.0-10.0)
[2021-02-01 09:20] LABS: CALCIUM 8.4 mg/dL (8.5-10.1)
[2021-02-01 09:21] LABS: ALBUMIN 3.3 g/dl (3.4-5.0); BLOOD UREA NITROGEN 6.9 mg/dL (7-18)
[2021-02-01 09:22] LABS: BILIRUBIN,TOTAL 0.3 mg/dL (0.2-1); TOT PROT 6.7 g/dl (6.4-8.2)
[2021-02-01 09:24] LABS: CREATININE 0.6 mg/dL (0.55-1.3)
[2021-02-01] MEDS ORDERED: PNEUMOC 13-VAL CONJ-DIP CRM/PF 0.5 ML DISP.SYRIN IM ONE (10:00)
[2021-02-01] MEDS: PRENATAL VITAMINS W/ FOLIC ACID TABLET (FP) PO SCH (10:23)
[2021-02-01] MEDS: cloNIDine HCL 0.1 MG TABLET PO SCH ×2 (10:23→22:15)
[2021-02-01] MEDS: PANTOPRAZOLE 40 MG TABLET PO SCH (10:24)
[2021-02-01] MEDS: GABAPENTIN 300 MG CAPSULE PO SCH ×2 (10:24→22:15)
[2021-02-01] MEDS: NICOTINE 14 MG/24 HOURS TOPICAL PATCH TD SCH (10:24)
[2021-02-01] MEDS: HYDROCHLOROTHIAZIDE 25 MG TABLET (FP) PO SCH (10:24)
[2021-02-01] MEDS ORDERED: PNEUMOCOCCAL 23 VACCINE 0.5 ML VIAL IM ONE (12:00)
[2021-02-01] MEDS ORDERED: INSULIN SLIDING SCALE (NOVOLOG) 1 VIAL SQ ONE (12:38)
[2021-02-01] MEDS: NICOTINE 10 MG CARTRIDGE (INHALER) IH PRN (12:39)
[2021-02-01] MEDS: diazePAM 5 MG TABLET PO PRN (14:25)
[2021-02-01] MEDS: THIAMINE HCL 100 MG TABLET (FP) PO SCH (22:15)
[2021-02-01] MEDS: ATORVASTATIN CA 40 MG TABLET (FP) PO SCH (22:15)
[2021-02-01] MEDS: MELATONIN 5 MG TABLETS PO SCH (22:15)
[2021-02-01] MEDS: INSULIN (LEVEMIR) 100 UNITS/ML UNITS SQ SCH (22:16)
[2021-02-02] MEDS: diazePAM 5 MG TABLET PO SCH ×3 (05:55→22:49)
[2021-02-02] MEDS: hydrOXYzine PAMOATE 25 MG CAPSULE (FP) PO SCH ×5 (05:56→22:48)
[2021-02-02] MEDS: metFORMIN HCL 500 MG TABLET (FP) PO SCH ×2 (07:14→17:35)
[2021-02-02] MEDS: INSULIN SLIDING SCALE (NOVOLOG) 1 VIAL SQ SCH ×4 (07:26→22:51)
[2021-02-02] MEDS: cloNIDine HCL 0.1 MG TABLET PO SCH ×2 (10:42→22:48)
[2021-02-02] MEDS: diazePAM 5 MG TABLET PO PRN (10:42)
[2021-02-02] MEDS: NICOTINE 14 MG/24 HOURS TOPICAL PATCH TD SCH (10:43)
[2021-02-02] MEDS: HYDROCHLOROTHIAZIDE 25 MG TABLET (FP) PO SCH (10:43)
[2021-02-02] MEDS: PANTOPRAZOLE 40 MG TABLET PO SCH (10:43)
[2021-02-02] MEDS: PRENATAL VITAMINS W/ FOLIC ACID TABLET (FP) PO SCH (10:43)
[2021-02-02] MEDS: GABAPENTIN 300 MG CAPSULE PO SCH ×2 (10:43→22:49)
[2021-02-02] MEDS: NICOTINE 10 MG CARTRIDGE (INHALER) IH PRN ×2 (10:44→23:22)
[2021-02-02] MEDS: THIAMINE HCL 100 MG TABLET (FP) PO SCH (22:48)
[2021-02-02] MEDS: ATORVASTATIN CA 40 MG TABLET (FP) PO SCH (22:49)
[2021-02-02] MEDS: MELATONIN 5 MG TABLETS PO SCH (22:50)
[2021-02-02] MEDS: INSULIN (LEVEMIR) 100 UNITS/ML UNITS SQ SCH (22:51)
[2021-02-02] MEDS ORDERED: INSULIN (LEVEMIR) 100 UNITS/ML UNITS SQ ONE (23:05)
[2021-02-03] MEDS: diazePAM 5 MG TABLET PO SCH ×2 (05:56→19:05)
[2021-02-03] MEDS: hydrOXYzine PAMOATE 25 MG CAPSULE (FP) PO SCH ×5 (05:57→22:20)
[2021-02-03] MEDS: metFORMIN HCL 500 MG TABLET (FP) PO SCH ×2 (06:00→17:07)
[2021-02-03] MEDS: INSULIN SLIDING SCALE (NOVOLOG) 1 VIAL SQ SCH ×4 (06:00→22:21)
[2021-02-03] MEDS ORDERED: INSULIN SLIDING SCALE (NOVOLOG) 1 VIAL SQ ONE ×2 (06:04→11:06)
[2021-02-03] MEDS: HYDROCHLOROTHIAZIDE 25 MG TABLET (FP) PO SCH (10:13)
[2021-02-03] MEDS: PRENATAL VITAMINS W/ FOLIC ACID TABLET (FP) PO SCH (10:13)
[2021-02-03] MEDS: PANTOPRAZOLE 40 MG TABLET PO SCH (10:13)
[2021-02-03] MEDS: GABAPENTIN 300 MG CAPSULE PO SCH ×2 (10:13→22:20)
[2021-02-03] MEDS: cloNIDine HCL 0.1 MG TABLET PO SCH ×2 (10:13→22:20)
[2021-02-03] MEDS: NICOTINE 10 MG CARTRIDGE (INHALER) IH PRN (10:15)
[2021-02-03] MEDS: NICOTINE 14 MG/24 HOURS TOPICAL PATCH TD SCH (10:15)
[2021-02-03] MEDS: ATORVASTATIN CA 40 MG TABLET (FP) PO SCH (22:20)
[2021-02-03] MEDS: THIAMINE HCL 100 MG TABLET (FP) PO SCH (22:20)
[2021-02-03] MEDS: MELATONIN 5 MG TABLETS PO SCH (22:20)
[2021-02-03] MEDS: INSULIN (LEVEMIR) 100 UNITS/ML UNITS SQ SCH (22:25)
[2021-02-03 22:46] VITALS: TEMP 96.9
[2021-02-04] MEDS ORDERED: diazePAM 5 MG TABLET PO ONE (06:00)
[2021-02-04] MEDS: metFORMIN HCL 500 MG TABLET (FP) PO SCH (06:25)
[2021-02-04] MEDS: INSULIN SLIDING SCALE (NOVOLOG) 1 VIAL SQ SCH (06:26)
[2021-02-04] MEDS: hydrOXYzine PAMOATE 25 MG CAPSULE (FP) PO SCH (06:27)
[2021-02-04 09:10] VITALS: BP 137/91; PULSE 110
[2021-02-04] MEDS: cloNIDine HCL 0.1 MG TABLET PO SCH (09:56)
[2021-02-04] MEDS: PANTOPRAZOLE 40 MG TABLET PO SCH (09:56)
[2021-02-04] MEDS: GABAPENTIN 300 MG CAPSULE PO SCH (09:56)
[2021-02-04] MEDS: HYDROCHLOROTHIAZIDE 25 MG TABLET (FP) PO SCH (09:56)
== END 2021-02-04 10:24 | disposition home or self-care (01) | DRG 775 ==
LOC: YASAS 12:48 → Y3N 15:39
PROVIDERS: ADMIT Allergy & Immunology; ATTEND Allergy & Immunology
PROC: HZ2ZZZZ Detoxification Services for Substance Abuse Treatment (ICD-10-PCS; principal; 2021-01-31)
DX: F10.230 Alcohol dependence with withdrawal, uncomplicated (principal); F17.210 Nicotine dependence, cigarettes, uncomplicated; E78.5 Hyperlipidemia, unspecified; E11.42 Type 2 diabetes mellitus with diabetic polyneuropathy; I10 Essential (primary) hypertension; K21.9 Gastro-esophageal reflux disease without esophagitis; Z79.4 Long term (current) use of insulin; Z87.19 Personal history of other diseases of the digestive system; Z88.5 Allergy status to narcotic agent; Z88.8 Allergy status to other drugs, medicaments and biological substances
CPT/HCPCS: 36415; 80053; 82962; 85027; 86780; 93005; 93010; C9803; J0735; U0003; U0005

== ENCOUNTER 2021-03-11 08:15 | Inpatient (IN) | payer OTHER ==
[2021-03-11 09:38] VITALS: BMI 27.8
[2021-03-11] MEDS ORDERED: MENTHOL/PHENOL 1 EACH UD MM PRN (10:32)
[2021-03-11] MEDS ORDERED: BISMUTH SUBSALICYLATE 524 MG/30 ML PO PRN (10:32)
[2021-03-11] MEDS ORDERED: MAG HYDROX/AL HYDROX/SIMETH 30 ML UNIT-DOSE CUP PO PRN (10:32)
[2021-03-11] MEDS ORDERED: ONDANSETRON *ODT* 4 MG TABLET SL PRN (10:32)
[2021-03-11] MEDS ORDERED: MAGNESIUM CITRATE 300 ML BOTTLE PO PRN (10:32)
[2021-03-11] MEDS ORDERED: METHOCARBAMOL 500 MG TABLET PO PRN (10:32)
[2021-03-11] MEDS ORDERED: IBUPROFEN 400 MG TABLET (FP) PO PRN (10:32)
[2021-03-11] MEDS ORDERED: MAGNESIUM HYDROX 2400MG/30ML ORAL SUSPENSION 30 ML CUP PO PRN (10:32)
[2021-03-11] MEDS ORDERED: NICOTINE 10 MG CARTRIDGE (INHALER) IH PRN (10:32)
[2021-03-11] MEDS ORDERED: ACETAMINOPHEN 325 MG TABLET (FP) PO PRN ×2 (10:32)
[2021-03-11] MEDS: diazePAM 5 MG TABLET PO SCH ×2 (12:35→18:16)
[2021-03-11] MEDS: NICOTINE 14 MG/24 HOURS TOPICAL PATCH TD SCH (12:37)
[2021-03-11] MEDS: PRENATAL VITAMINS W/ FOLIC ACID TABLET (FP) PO SCH (12:38)
[2021-03-11 15:13] LABS: HEMATOCRIT 32.9 % (35.4-49); HEMOGLOBIN 10.8 GM/dL (11.7-16.9); MCH 28.7 pg (25.7-33.7); MCHC 32.9 g/dl (32.0-35.9); MEAN CELL VOLUME 87.1 fl (80-96); MEAN PLT VOLUME 8.7 fl (7.5-11.1); PLATELET COUNT 247 10^3/uL (134-434); RBC 3.78 M/mm3 (4.00-5.60); RDW 18.8 % (11.9-15.9); WHITE BLOOD COUNT 3.1 K/mm3 (4.0-10.0)
[2021-03-11] MEDS: hydrOXYzine PAMOATE 25 MG CAPSULE (FP) PO SCH ×3 (15:22→22:04)
[2021-03-11 15:52] LABS: ALBUMIN 3.5 g/dl (3.4-5.0)
[2021-03-11 15:53] LABS: BLOOD UREA NITROGEN 8.2 mg/dL (7-18); CALCIUM 8.9 mg/dL (8.5-10.1)
[2021-03-11 15:56] LABS: CREATININE 0.7 mg/dL (0.55-1.3)
[2021-03-11 15:57] LABS: BILIRUBIN,TOTAL 0.4 mg/dL (0.2-1); TOT PROT 7.8 g/dl (6.4-8.2)
[2021-03-11] MEDS ORDERED: INSULIN SLIDING SCALE (NOVOLOG) 1 VIAL SQ ONE (17:20)
[2021-03-11] MEDS ORDERED: METOPROLOL TARTRATE 50 MG TABLET (FP) PO ONE ×2 (17:38→19:04)
[2021-03-11] MEDS: metFORMIN HCL 500 MG TABLET (FP) PO SCH (18:08)
[2021-03-11] MEDS: INSULIN (NOVOLOG) ASPART 100 UNITS/ML 10ML VIAL SQ SCH (18:08)
[2021-03-11] MEDS: diazePAM 5 MG TABLET PO PRN ×2 (18:16→22:04)
[2021-03-11] MEDS ORDERED: cloNIDine HCL 0.1 MG TABLET PO SCH (22:00)
[2021-03-11] MEDS: THIAMINE HCL 100 MG TABLET (FP) PO SCH (22:04)
[2021-03-11] MEDS: ATORVASTATIN CA 40 MG TABLET (FP) PO SCH (22:04)
[2021-03-11] MEDS: MELATONIN 5 MG TABLETS PO SCH (22:05)
[2021-03-11] MEDS: INSULIN (LEVEMIR) 100 UNITS/ML UNITS SQ SCH (22:05)
[2021-03-11] MEDS ORDERED: METOPROLOL TARTRATE 25 MG TABLET (FP) PO ONE (23:21)
[2021-03-12] MEDS: diazePAM 5 MG TABLET PO SCH ×5 (00:28→22:42)
[2021-03-12] MEDS: hydrOXYzine PAMOATE 25 MG CAPSULE (FP) PO SCH ×5 (06:27→22:43)
[2021-03-12] MEDS: metFORMIN HCL 500 MG TABLET (FP) PO SCH ×2 (06:27→18:21)
[2021-03-12] MEDS: INSULIN (NOVOLOG) ASPART 100 UNITS/ML 10ML VIAL SQ SCH ×3 (08:20→18:23)
[2021-03-12] MEDS: PANTOPRAZOLE 40 MG TABLET PO SCH (10:07)
[2021-03-12] MEDS: NICOTINE 14 MG/24 HOURS TOPICAL PATCH TD SCH (10:07)
[2021-03-12] MEDS: PRENATAL VITAMINS W/ FOLIC ACID TABLET (FP) PO SCH (10:09)
[2021-03-12] MEDS: GABAPENTIN 300 MG CAPSULE PO SCH ×2 (11:15→22:43)
[2021-03-12] MEDS ORDERED: INSULIN SLIDING SCALE (NOVOLOG) 1 VIAL SQ ONE ×2 (11:17→17:42)
[2021-03-12] MEDS: diazePAM 5 MG TABLET PO PRN (15:32)
[2021-03-12] MEDS ORDERED: METOPROLOL TARTRATE 25 MG TABLET (FP) PO ONE (21:56)
[2021-03-12] MEDS: INSULIN (LEVEMIR) 100 UNITS/ML UNITS SQ SCH (22:42)
[2021-03-12] MEDS: ATORVASTATIN CA 40 MG TABLET (FP) PO SCH (22:43)
[2021-03-12] MEDS: THIAMINE HCL 100 MG TABLET (FP) PO SCH (22:43)
[2021-03-12] MEDS: MELATONIN 5 MG TABLETS PO SCH (23:13)
[2021-03-13] MEDS: diazePAM 5 MG TABLET PO SCH ×3 (05:36→22:13)
[2021-03-13] MEDS: hydrOXYzine PAMOATE 25 MG CAPSULE (FP) PO SCH ×5 (05:36→22:13)
[2021-03-13] MEDS: metFORMIN HCL 500 MG TABLET (FP) PO SCH ×2 (06:12→17:38)
[2021-03-13] MEDS: INSULIN (NOVOLOG) ASPART 100 UNITS/ML 10ML VIAL SQ SCH ×3 (06:19→17:38)
[2021-03-13] MEDS: PRENATAL VITAMINS W/ FOLIC ACID TABLET (FP) PO SCH (10:45)
[2021-03-13] MEDS: PANTOPRAZOLE 40 MG TABLET PO SCH (10:46)
[2021-03-13] MEDS: GABAPENTIN 300 MG CAPSULE PO SCH ×2 (10:46→22:14)
[2021-03-13] MEDS: NICOTINE 14 MG/24 HOURS TOPICAL PATCH TD SCH (10:49)
[2021-03-13] MEDS: cloNIDine HCL 0.1 MG TABLET PO SCH ×2 (12:09→22:13)
[2021-03-13] MEDS ORDERED: INSULIN SLIDING SCALE (NOVOLOG) 1 VIAL SQ ONE ×2 (12:10→18:42)
[2021-03-13] MEDS: INSULIN (LEVEMIR) 100 UNITS/ML UNITS SQ SCH (22:13)
[2021-03-13] MEDS: ATORVASTATIN CA 40 MG TABLET (FP) PO SCH (22:14)
[2021-03-13] MEDS: MELATONIN 5 MG TABLETS PO SCH (22:14)
[2021-03-13] MEDS: THIAMINE HCL 100 MG TABLET (FP) PO SCH (22:14)
[2021-03-14] MEDS: diazePAM 5 MG TABLET PO SCH ×2 (05:48→17:05)
[2021-03-14] MEDS: hydrOXYzine PAMOATE 25 MG CAPSULE (FP) PO SCH ×5 (05:48→21:58)
[2021-03-14] MEDS: INSULIN (NOVOLOG) ASPART 100 UNITS/ML 10ML VIAL SQ SCH ×3 (06:52→17:09)
[2021-03-14] MEDS: metFORMIN HCL 500 MG TABLET (FP) PO SCH ×2 (06:52→17:05)
[2021-03-14] MEDS: PANTOPRAZOLE 40 MG TABLET PO SCH (10:30)
[2021-03-14] MEDS: GABAPENTIN 300 MG CAPSULE PO SCH ×2 (10:30→21:27)
[2021-03-14] MEDS: PRENATAL VITAMINS W/ FOLIC ACID TABLET (FP) PO SCH (10:30)
[2021-03-14] MEDS: cloNIDine HCL 0.1 MG TABLET PO SCH ×2 (10:30→21:27)
[2021-03-14] MEDS: NICOTINE 14 MG/24 HOURS TOPICAL PATCH TD SCH (10:33)
[2021-03-14] MEDS ORDERED: INSULIN SLIDING SCALE (NOVOLOG) 1 VIAL SQ ONE ×3 (11:52→17:07)
[2021-03-14] MEDS: THIAMINE HCL 100 MG TABLET (FP) PO SCH (21:27)
[2021-03-14] MEDS: MELATONIN 5 MG TABLETS PO SCH (21:27)
[2021-03-14] MEDS: ATORVASTATIN CA 40 MG TABLET (FP) PO SCH (21:27)
[2021-03-14] MEDS: INSULIN (LEVEMIR) 100 UNITS/ML UNITS SQ SCH (21:57)
[2021-03-15] MEDS: hydrOXYzine PAMOATE 25 MG CAPSULE (FP) PO SCH (05:45)
[2021-03-15] MEDS ORDERED: diazePAM 5 MG TABLET PO ONE (06:00)
[2021-03-15 07:10] VITALS: TEMP 97.1
[2021-03-15 07:29] VITALS: BP 156/103; PULSE 98
[2021-03-15] MEDS ORDERED: cloNIDine HCL 0.1 MG TABLET PO ONE (07:45)
[2021-03-15] MEDS: metFORMIN HCL 500 MG TABLET (FP) PO SCH (07:50)
[2021-03-15] MEDS: INSULIN (NOVOLOG) ASPART 100 UNITS/ML 10ML VIAL SQ SCH (07:51)
[2021-03-15] MEDS ORDERED: INSULIN SLIDING SCALE (NOVOLOG) 1 VIAL SQ ONE (07:51)
== END 2021-03-15 09:38 | disposition home or self-care (01) | DRG 775 ==
LOC: YASAS 08:15 → Y3N 11:51
PROVIDERS: ADMIT Allergy & Immunology; ATTEND Allergy & Immunology
PROC: HZ2ZZZZ Detoxification Services for Substance Abuse Treatment (ICD-10-PCS; principal; 2021-03-11)
DX: F10.230 Alcohol dependence with withdrawal, uncomplicated (principal); F17.210 Nicotine dependence, cigarettes, uncomplicated; F10.282 Alcohol dependence with alcohol-induced sleep disorder; F10.24 Alcohol dependence with alcohol-induced mood disorder; F31.9 Bipolar disorder, unspecified; D64.9 Anemia, unspecified; E78.5 Hyperlipidemia, unspecified; E11.9 Type 2 diabetes mellitus without complications; Z79.4 Long term (current) use of insulin; I10 Essential (primary) hypertension; K21.9 Gastro-esophageal reflux disease without esophagitis; R74.01 Elevation of levels of liver transaminase levels; Z87.19 Personal history of other diseases of the digestive system; Z88.5 Allergy status to narcotic agent; Z88.8 Allergy status to other drugs, medicaments and biological substances
CPT/HCPCS: 36415; 80053; 82962; 85027; 86780; 93005; 93010; C9803; J0735; Q0162; U0003; U0005